=== PATIENT | female | born 1995 | race Caucasian/White ===

== ENCOUNTER 2023-05-12 11:55 | Emergency (ER) | payer MEDICAID, SELFPAY ==
[2023-05-12 11:55] VITALS: BP 115/84; PULSE 72; RESP 18; TEMP 36.9; O2SAT 99
--- NOTE | 2023-05-12 12:17 | ED.DENTAL ---
HPI - Dental/Oral General Chief complaint: Dental/Oral Stated complaint: dental pain Time Seen by Provider: 05/12/23 12:02 Source: patient Mode of arrival: ambulatory Limitations: no limitations History of Present Illness HPI Narrative: this is a 28-year-old female with left lower Dental pain with surrounding gum inflammation and left lower jaw pain and submandibular gland inflammation with no fever chills no shortness of breath. MD Complaint: tooth pain Teeth map: 1. Dental pain with surrounding gum inflammation Onset (ago): month(s) Duration: intermittent Severity: moderate Relieving factors: NSAIDs Exacerbating factors: chewing Context: history of dental caries Related Data Allergies Allergy/AdvReac Type Severity Reaction Status Date / Time pseudoephedrine Allergy Palpitation Verified 05/12/23 12:11 [From Sudafed] s Review of Systems Review of Systems: All systems reviewed & are unremarkable except as noted in HPI and below PMFSH Past Medical History Medical History Patient denies medical problems Exam Const: General: healthy appearing Nutritional Appearance: well nourished Orientation/consciousness: patient oriented x3 Limitations: no limitations HENMT: Other: left lower dental pain surrounding gum inflammation Eyes: Conjunctivae: conjunctivae normal Pupils: Equal, round and reactive pupils present EOM: EOMs intact bilaterally Neck: Neck: normal visual inspection Chest: Chest palpation & inspection: normal inspection of the chest Resp: Effort & Inspection: normal respiratory effort Auscultation: clear to auscultation bilaterally Cardio: Rate: regular rate Rhythm: regular rhythm Skin: General skin exam: normal color Rashes: no rashes Neuro: General: patient oriented x3 Extrem: General: normal to inspection Psych: Mental Status: mental status grossly normal Affect: normal affect Course Course Emergency Course: patient took medication for pain prior to arrival to the emergency department, was told by a dentist to come to the nearest emergency department to get an antibiotic. Vital Signs Vital signs: Vital Signs Temperature 36.9 C 05/12/23 11:55 Pulse Rate 72 05/12/23 11:55 Respiratory Rate 18 05/12/23 11:55 Blood Pressure 115/84 05/12/23 11:55 Pulse Oximetry 99 05/12/23 11:55 Oxygen Delivery Room Air 05/12/23 11:55 Temperature 36.9 C 05/12/23 11:55 Pulse Rate 72 05/12/23 11:55 Respiratory Rate 18 05/12/23 11:55 Blood Pressure 115/84 05/12/23 11:55 Pulse Oximetry 99 05/12/23 11:55 Oxygen Delivery Room Air 05/12/23 11:55 Critical Care Time Critical Care Time Critical Care Time: No Discharge Plan Discharge Clinical Impression: Dental abscess, Toothache Patient Disposition: Home, Self-Care Condition: Stable Instructions: Antibiotic Form, Dental Abscess (ED), Toothache (ED) Additional Instructions: Take medicine as prescribed, can continue taking Tylenol or Motrin and follow with dentist as scheduled. Prescriptions: New amoxicillin 400 mg/5 mL suspension for reconstitution 500 mg PO TID 10 Days Qty: 187.5 0RF Follow-up/Referrals: UNKNOWN,DOCTOR [Primary Care Provider] - Stand Alone Forms: Work/School Release IP Time of Disposition: 12:22
== END 2023-05-12 12:37 | disposition home or self-care (01) ==
LOC: CHSED 12:24
PROVIDERS: Emergency Provider Emergency Medicine
DX: K04.7 Periapical abscess without sinus (principal)
CPT/HCPCS: 99283

== ENCOUNTER 2023-11-20 18:05 | Emergency (ER) | payer BC, SELFPAY ==
[2023-11-20 18:05] VITALS: BP 123/75; PULSE 87; RESP 18; TEMP 36.9; O2SAT 99
--- NOTE | 2023-11-20 18:13 | ED.GENADULT ---
HPI - General Adult General Chief complaint: Urogenital-Female Stated complaint: right lower abdominal pain Time Seen by Provider: 11/20/23 18:13 History of Present Illness HPI narrative: Matthew is a G7 with 3 living children and she lost 3 pregnancies who is currently reportedly 25 weeks . She had triplets but only has one viable fetus left. She is followed by [facility]. She reported to the ED with right flank pain that radiates to the RLQ with some dysuria. She is still feeling her baby move. There is no nausea, vomiting, fevers or dyspnea. Related Data Home Medications Medication Instructions Recorded Confirmed vit no.95-ferrous 1 tablet PO DAILY 11/20/23 11/20/23 fumarate 28 mg-folic acid 800 mcg tablet () Allergies Allergy/AdvReac Type Severity Reaction Status Date / Time pseudoephedrine Allergy Palpitation Verified 05/12/23 12:11 [From [facility]] s Review of Systems Review of Systems: All systems reviewed & are unremarkable except as noted in HPI and below PMFSH Past Medical History Medical History Patient denies medical problems Exam Const: General: cooperative, healthy appearing, comfortable, no acute distress, well developed, alert, awake and Physically active Orientation/consciousness: oriented to person, oriented to place and oriented to time HENMT: Head: normal to inspection, normocephalic and atraumatic Ears: hearing grossly normal bilaterally and external ears normal Face/Nose/Sinus: Normal external nose present Eyes: General: appearance normal, both eyes and all related structures Periorbital: periorbital findings normal Sclera: sclerae normal Pupils: Equal, round and reactive pupils present Neck: Neck: normal visual inspection Chest: Chest palpation & inspection: normal inspection of the chest Resp: Effort & Inspection: normal respiratory effort, able to speak in complete sentences and no respiratory distress Auscultation: clear to auscultation bilaterally Cardio: Jugular venous distension: no JVD Rate: regular rate Rhythm: regular rhythm GI: Inspection: normal to inspection GI Palp: Yes Soft to palpation Auscultation: normal bowel sounds Other: TTP in the right lower quadrant. Negative obturator and psoas sign : Other: Right sided CVA tenderness Pelvic exam showed a closed uterus and findings were wnl Back/Spine/Pelvis: Back: CVA tenderness Skin: General skin exam: normal color and no rashes or lesions noted Neuro: General: oriented to person, oriented to place and oriented to time Cranial nerves: Yes Equal, round and reactive pupils present Extrem: General: normal to inspection Psych: Mental Status: mental status grossly normal Course Course Emergency Course: Ordered labs and UA. heart tones were 146-156 Labs and UA were largely unremarkable. We reached out to [facility] where her MFM, Dr. Harley works. While awaiting to hear back August no longer wanted to wait and she left [facility]. She was aware that that failure to comply could result in loss/harm, discomfort, and pain or . She was made aware that she can return at any time. Vital Signs Vital signs: Vital Signs Temperature 98.4 F 11/20/23 18:05 Pulse Rate 87 11/20/23 18:05 Respiratory Rate 18 11/20/23 18:05 Blood Pressure 123/75 11/20/23 18:05 Pulse Oximetry 99 11/20/23 18:05 Oxygen Delivery Room Air 11/20/23 18:05 Temperature 98.4 F 11/20/23 18:05 Pulse Rate 89 11/20/23 19:00 Respiratory Rate 18 11/20/23 19:00 Blood Pressure 122/65 11/20/23 19:00 Pulse Oximetry 100 11/20/23 19:00 Oxygen Delivery Room Air 11/20/23 19:00 Medical Decision Making Vital Signs Vital Signs: Vital Signs Temperature 98.4 F 11/20/23 18:05 Pulse Rate 87 11/20/23 18:05 Respiratory Rate 18 11/20/23 18:05 Blood Pressure 123/75 11/20/23 18:05 P
[2023-11-20 18:49] LABS: Basophils Absolute Auto 0.01 K/mm3 (0.00-0.10); Basophils Percent Auto 0.1 % (0.0-1.0); Bilirubin Urine Negative (Negative); Blood Urine Negative (Negative); Color Urine Light Yellow (Yellow); Eosinophils Absolute Auto 0.09 K/mm3 (0.02-0.50); Eosinophils Percent Auto 1.3 % (1.0-6.0); Glucose Urine UA Negative (Negative); Hematocrit 29.7 % (35.0-49.0); Hemoglobin 9.4 g/dL (12.0-15.0); Immature Granulocyte Absolute 0.05 K/mm3 (0.00-0.00); Immature Granulocyte Percent A 0.7 % (0.0-0.0); Ketones Urine Negative (Negative); Leukocyte Esterase Ur 1+ LEU/UL (Negative); Lymphocytes Absolute Auto 1.27 K/mm3 (1.10-4.50); Lymphocytes Percent Auto 18.8 % (18.0-42.0); Mean Corpuscular HGB Conc 31.6 g/dL (32.0-36.0); Mean Corpuscular Hemoglobin 27.7 pg (27.0-31.0); Mean Corpuscular Volume 87.6 fL (78.0-102.0); Mean Platelet Volume 10.3 fl (9.2-11.8); Monocytes Absolute Auto 0.41 K/mm3 (0.10-0.90); Monocytes Percent Auto 6.1 % (2.0-11.0); Neutrophils Absolute Auto 4.9 K/mm3 (1.7-7.2); Nitrate Urine Negative (Negative); Platelet Count Result 145 K/mm3 (150-420); Protein Urine Negative (Negative); Red Blood Count 3.39 M/mm3 (4.20-5.40); Specific Grav Ur 1.015 (1.010-1.020); Urobilinogen Urine 0.2 mg/dL (0.2-1.0); White Blood Count 6.8 K/mm3 (4.8-10.8); pH Urine 8.5 (5.0-8.0)
[2023-11-20 19:00] VITALS: BP 122/65; PULSE 89; RESP 18; O2SAT 100
[2023-11-20 19:11] LABS: Add Urine Microscopic? YES; Appearance Urine Cloudy (Clear); Squamous Epithelial Cell Urine Many /hpf (Few); WBC Urine 0-3 /hpf (0-3)
[2023-11-20 19:12] LABS: Amorphous Sediment Urine Heavy; Bacteria Urine 4+ /hpf
[2023-11-20 19:22] LABS: Alanine Aminotransferase 15 U/L (14-59); Chloride 104 mmol/L (98-108); Lipase 38 U/L (16-77); Potassium 3.5 mmol/L (3.5-5.1); Sodium 138 mmol/L (136-145)
[2023-11-20 19:28] LABS: Lactic Acid Reflex 0.8 mmol/L (0.4-2.0)
[2023-11-20 20:03] LABS: Albumin Level 2.8 g/dL (3.4-5.0); Alkaline Phosphatase 91 U/L (46-116); Anion Gap 8 mmol/L (8-16); Aspartate Amino Transferase 10 U/L (15-37); Bilirubin,Total 0.3 mg/dL (0.00-1.00); Carbon Dioxide 26 mmol/L (21-32); Glucose 98 mg/dL (70-99); Total Protein 6.2 g/dL (6.4-8.2)
[2023-11-20 20:12] LABS: Blood Urea Nitrogen 7 mg/dL (7-18); Calcium 8.3 mg/dL (8.5-10.1); Estimated CRCL calculation 88 ml/min; Estimated Glomerular Filt Rate > 60; Osmolality Calculated 284 mOsm/kg (285-295)
[2023-11-20 20:21] LABS: CRP < 0.5 mg/dL (0.0-0.9)
[2023-11-20 20:40] VITALS: BP 128/74; PULSE 91; RESP 18; TEMP 36.8; O2SAT 97
--- NOTE | 2023-11-23 12:18 | PC.NURSE ---
final urine report reviewed. no growth found. no cahnge in plan of care.
== END 2023-11-20 20:50 | disposition left against medical advice (07) ==
LOC: CHSED 18:39
PROVIDERS: Emergency Provider Family Medicine
DX: O26.892 Other specified pregnancy related conditions, second trimester (principal); R10.31 Right lower quadrant pain; Z3A.25 25 weeks gestation of pregnancy; O09.292 Supervision of pregnancy with other poor reproductive or obstetric history, second trimester
CPT/HCPCS: 36415; 80053; 81001; 83605; 83690; 85025; 86140; 87086; 99283

== ENCOUNTER 2024-07-15 20:27 | Emergency (ER) | payer OTHER, SELFPAY ==
--- NOTE | ~2024-07-15 | XR_ITS ---
XR foot LT min 3V DATE: 07/15/2024 20:47 INDICATION: Lateral and dorsal left foot pain for one day. No known injury. TECHNIQUE: 4 views COMPARISON: None FINDINGS: No fracture or dislocation, periosteal reaction or bone destruction. Joint spaces are prese rved. No erosive change. No calcaneal enthesopathy. IMPRESSION: Negative Reviewed, dictated and finalized at location [facility]. [facility] IMPRESSION: Negative
[2024-07-15 20:27] VITALS: BP 145/95; PULSE 116; RESP 18; TEMP 36.2; O2SAT 97
--- NOTE | 2024-07-15 20:29 | ED_ITS ---
HPI - Extremity Injury (Lower) General Chief Complaint: Extremity Injury, Lower Stated Complaint: L foot Injury Time Seen by Provider: 07/15/24 20:28 Source: patient Mode of arrival: ambulatory Limitations: no limitations History of Present Illness HPI Narrative: Patient is a 29-year-old female with a left lateral foot pain today. The pain is progressively get worse. She did not injure this area. complaint: foot injury ( Left) Onset (ago): day(s) (1) Type of Injury: other ( no injury that she recalls) Place: home Severity: moderate Severity scale (1-10): 4 Relieving factors: immobilization Exacerbating factors: weight bearing, movement and palpation Context: other ( no injury) Associated symptoms: able to partially bear weight Other symptoms: none Treatments prior to arrival: other ( none) Related Data Home Medications Medication Instructions Recorded Confirmed vit no.95-ferrous 1 tablet PO DAILY 11/20/23 11/20/23 fumarate 28 mg-folic acid 800 mcg tablet () Allergies Allergy/AdvReac Type Severity Reaction Status Date / Time pseudoephedrine Allergy Palpitation Verified 05/12/23 12:11 [From Sudafed] s Review of Systems Review of Systems: All systems reviewed & are unremarkable except as noted in HPI and below Constitutional: Constitutional: Reports no additional constitutional complaints Eyes: Eyes: Reports no additional eye complaints ENT: Reports system reviewed and no additional complaints, except as documented Cardiovascular: Cardiovascular: Reports no additional cardiovascular complaints Respiratory: Respiratory: Reports no additional respiratory complaints Gastrointestinal: Gastrointestinal: Reports no additional gastrointestinal complaints Genitourinary: Genitourinary: Reports no additional female genitourinary complaints Musculoskeletal: Musculoskeletal: Reports no additional musculoskeletal complaints Integumentary/Breasts: Skin/Breast: Reports system reviewed and no additional complaints, except as docu Neurologic: Reports system reviewed and no additional complaints, except as documented Psychiatric: Psychiatric: Reports no additional psychiatric complaints Endocrine: Endocrine: Reports no additional endocrine complaints Hematologic/Lymphatic: Hematologic/Lymphatic: Reports no additional hematologic/lymphatic complaints Allergic/Immunologic: Allergic/Immunologic: Reports no additional allergic/immunologic complaints PMFSH Past Medical History Medical History Patient denies medical problems Exam Const: General: healthy appearing Nutritional Appearance: well nourished Orientation/consciousness: patient oriented x3 HENMT: Head: normal to inspection Ears: external ears normal Face/Nose/Sinus: Normal external nose present Eyes: Conjunctivae: conjunctivae normal Pupils: Equal, round and reactive pupils present EOM: EOMs intact bilaterally Neck: Neck: normal visual inspection Chest: Chest palpation & inspection: normal inspection of the chest Resp: Effort & Inspection: normal respiratory effort and not labored Auscultation: clear to auscultation bilaterally and no crackles Cardio: Rate: regular rate Rhythm: regular rhythm Heart sounds: no murmurs GI: Inspection: non-distended GI Palp: Yes Soft to palpation and No Tenderness to palpation present (GI) Auscultation: normal bowel sounds : General: Yes bladder normal to palpation Back/Spine/Pelvis: Back: no CVA tenderness Skin: General skin exam: normal color Rashes: no rashes Wounds: no wounds Neuro: General: patient oriented x3 Cranial nerves: Yes Nystagmus not present Speech: normal speech Gait exam (Neuro): gait abnormal Other: difficulty walking secondary to left foot pain Extrem: General: normal to inspection, no clubbing, cyanosis or edema and no pedal edema Other: tender left lateral foot at the metatarsal base 5th digit and some of the tarsal bones included in this painful area laterally Psych: Mental Status: mental status grossly normal Affect: normal affect Attitude: cooperative Course Vital Signs Vital signs: Vital Signs Temperature 36.2 C L 07/15/24 20:27 Pulse Rate 116 H 07/15/24 20:27 Respiratory Rate 18 07/15/24 20:27 Blood Pressure 145/95 H 07/15/24 20:27 Pulse Oximetry 97 07/15/24 20:27 Oxygen Delivery Room Air 07/15/24 20:27 Temperature 36.2 C L 07/15/24 20:27 Pulse Rate 116 H 07/15/24 20:27 Respiratory Rate 18 07/15/24 20:27 Blood Pressure 145/95 H 07/15/24 20:27 Pulse Oximetry 97 07/15/24 20:27 Oxygen Delivery Room Air 07/15/24 20:27 MDM - Extremity Injury (Lower) MDM Narrative Medical decision making narrative: patient is a 29-year-old female with left foot pain. There is no injury. We will start with an x-ray at this time. in retrospect, the patient says that she has been carrying the baby and had a popping sensation on the opposite side of the same foot in the last few weeks which she probably has been walking Nadia on that left foot. All in all, she probably has a sprain or strain of this area that is causing her pain tonight. She does not use any ibuprofen or Tylenol. I suggested ibuprofen at this time 200 mg to 800 mg per dose to stop the pain. she asked me about blood clots and I explained that the foot does not have deep veins and her pain is only in the foot and her Homans sign was negative. I did offer ultrasound for the morning but she did not want to do at this time. No calf pain. Imaging Data Attestation: I personally reviewed and interpreted this imaging study as follows: Radiologist's impression: X-ray left foot is negative for acute process Discharge Plan Discharge Clinical Impression: Sprain of foot Patient Disposition: Home, Self-Care Condition: Stable Instructions: Foot Sprain (ED) Additional Instructions: Please use ice and/or ibuprofen 200 mg to 800 mg per dose for pain relief. Further workup to include an MRI can be done of this area if it does not reso lve. Please see the primary doctor in the next week. Prescriptions: No Action PNV cmb#95-ferrous fumarate-FA [] 28 mg iron- 800 mcg tablet 1 tablet PO DAILY Follow-up/Referrals: Trevor,CHYNA Zuniga [Primary Care Provider] - Time of Disposition: 21:29
--- NOTE | 2024-07-15 20:42 | PC.NURSE ---
xray at the bedside
--- NOTE | 2024-07-15 21:21 | PC.NURSE ---
Dr Ludwig at the bedside
[2024-07-15 21:35] VITALS: BP 132/89; PULSE 82; RESP 18; O2SAT 100
== END 2024-07-15 21:35 | disposition home or self-care (01) ==
PROVIDERS: Emergency Provider Emergency Medicine; PCP Physician Assistant
DX: S93.602A Unspecified sprain of left foot, initial encounter (principal); X58.XXXA Exposure to other specified factors, initial encounter
CPT/HCPCS: 73630; 99283

== ENCOUNTER 2024-12-17 20:22 | Emergency (ER) | payer OTHER, SELFPAY ==
--- NOTE | ~2024-12-17 | XR_ITS ---
CHEST RADIOGRAPH CLINICAL HISTORY: WEAKNESS . COMPARISON: None available TECHNIQUE: Single portable view of the chest. FINDINGS The cardiomediastinal silhouette is unremarkable. The lungs are clear. IMPRESSION: No focal infiltrate or effusion. Reviewed, dictated and finalized at location A.
--- NOTE | ~2024-12-17 | CT_ITS ---
History: Weakness PROCEDURE: CT head without contrast. COMPARISON: None TECHNIQUE: Axial imaging of the head performed from the skull base to the vertex without IV contrast. Sagittal a nd coronal reformations obtained. DLP: 605 mGy-cm FINDINGS: The ventricles are normal in size, shape and position. There is no mass, mass effect or midline shift. There is no abnormal extra-axial fluid collection or intracranial hemorrhage. Visualized paranasal sinuses are clear. The mastoid air cells are well aerated. No acute displaced fractures within the overlying cranium. Impression: No acute intracranial hemorrhage or suspicious mass effect. Reviewed, dictated and finalized at location A. Impression: No acute intracranial hemorrhage or suspicious mass effect.
[2024-12-17 20:27] VITALS: BP 143/100; PULSE 99; RESP 18; TEMP 36.6; O2SAT 100
--- OUTSIDE RECORDS SUMMARY | 2024-12-17 20:27 | XMS_ITS | Clinical Summary ---
Author Organization [facility] Address [address] [place] [address] Phone Care Team Providers Care Coat Padder Name Role Phone Safia Perez MD Primary Care Provider + [phone] Allergies Active Allergy Reactions Criticality Noted Date Comments Pseudoephedrine Other (see Comments) 11/29/2022 Pt states that her heart was raising and her face feel flushed. Medications No known medications Social History Tobacco Use Types Packs/Day Years Used Date Smoking Tobacco: Every Day Cigarettes Smokeless Tobacco: Never Tobacco Cessation:Ready to Q uit: Not Asked; Counseling Given: Not Answered Alcohol Use Standard Drinks/Week Comments Yes 0 (1 standard drink = 0.6 oz pur e alcohol) [facility] Utilities Answer Date Recorded In the past 12 months has [employer] electric, gas, oil, or water [employer] threatened to shut off services in your home? No 08/29/2023 Social Connection and Isolat ion Panel [NHANES] Answer Date Recorded In a typical week, how many times do you talk on the phone with family, friends, or neighbors? More than three times a week 08/29/2023 How often do you get togethe r with friends or relatives? Once a week 08/29/2023 How often do you attend chur ch or rastafarian services? Never 08/29/2023 Do you belong to any clubs o r organizations such as religion groups, unions, fraternal or athletic groups, or school groups? No 08/29/2023 How often do you attend meet ings of the clubs or organizations you belong to? Never 08/29/2023 Are you , , di vorced, , never , or living with a partner? 08/29/2023 AUDIT-C Answer Date Recorded Q1: How often do you have a drink containing alcohol? Never 08/29/2023 Q2: How many drinks containi ng alcohol do you have on a typical day when you are drinking? Patient does not drink 3 Q3: How often do you have si x or more drinks on one occasion? Never 08/29/2023 Overall Financial Resource Strain (CARDIA) Answe r Date Recorded How hard is it for you to pa y for the very basics like food, housing, medical care, and heating? Not hard at all 08/29/2023 [facility] - Occupational Stress Questionnaire Answer Date Recorded Do you feel stress - tense, restless, nervous, or anxious, or unable to sleep at night because your mind is troubled all the time - these days? Only a little 08/29/2023 Exercise Vital Sign Answer Date Recorde d On average, how many days pe r week do you engage in moderate to strenuous exercise (like a brisk walk)? 2 days 08/29/2023 On average, how many minutes do you engage in exercise at this level? 30 min 08/29/2023 Hunger Vital Sign Answer Date Recorded Within the past 12 months, y ou worried that your food would run out before you got the money to buy more. Sometimes true Within the past 12 months, t he food you bought just didn't last and you didn't have money to get more. Sometimes true PRAPARE - Transportation Answer Date Re corded In the past 12 months, has l ack of transportation kept you from medical appointments or from getting medications? Yes 08/12 In the past 12 months, has l ack of transportation kept you from meetings, work, or from getting things needed for daily living? Yes 08/29/2023 Housing Stability Vital Sign Answer Michael e Recorded In the last 12 months, was t here a time when you were not able to pay the mortgage or rent on time? Yes 08/29/2023 In the last 12 months, how many places have you lived? 3 08/29/2023 In the last 12 months, was t here a time when you did not have a steady place to sleep or slept in a custodial (including now)? Yes 08/29/2023 Housing Stability Vital Sign Answer Michael e Recorded In the last 12 months, was t here a time when you were not able to pay the mortgage or rent on time? Yes 08/29/2023 Number of Times Moved in the Last Year Not on fi le 08/29/2023 Homeless in the Last Year Not on file 2022 Comments Unknown Sex and Gender Information Value Date Recorded Sex Assigned at Not on file Legal Sex Female 7:31 PM CDT Gender Identity Not on file Sexual Orientation Not on file Last Filed Vital Signs Vital Sign Reading Time Taken Comments Blood Pressure 112/66 10/24/2023 1:11 PM CLASSICS TEACHER Pulse 80 10/24/2023 1:11 PM CLASSICS TEACHER Temperature 36.1 C (97 F) 10/24/2023 1:11 PM CLASSICS TEACHER Respiratory Rate 16 10/24/2023 1:11 PM CLASSICS TEACHER Oxygen Saturation 100% 10/24/2023 1:11 PM CLASSICS TEACHER Inhaled Oxygen Concentration - - Weight 59 kg (130 lb) 10/24/2023 10:06 AM CLASSICS TEACHER Height 154.9 cm (5' 1 ) 10/24/2023 10:06 AM CLASSICS TEACHER Body Mass Index 24.56 10/24/2023 10:06 AM CLASSICS TEACHER Plan of Treatment Health Maintenance Due Date Last Done Comments Hepatitis C Virus (HCV) Screening 1993 Pneumococcal Immunization Combined (1 of 2 - PCV) 2012 Pap Smear 2014 Cervical Cancer Screening (CCS) 2023 HPV/Cotest 2023 Influenza Immunization (#1) 2024 06/28/2008 SARS-COV-2 Immunization ( season) 2024 Respiratory Syncytial Virus (RSV) Immunization (Adult) (1 - 1-dose 75+ series) 2068 Hepatitis B Immunization Completed 994, 1993, 1993 DTaP/Tdap/Td Immunization Discontinued 2007, 06/03/1998, 11/26/1994, Additional history exists Meningococcal Immunization (ACWY) Aged Out 06/28/2008 No longer eligible based on patient's age to complete this topic TdaP Immunization Completed 06/28/2008 Rotavirus Immunization Aged Out No lo nger eligible based on patient's age to complete this topic Insurance [place] [id number] Care Teams Coat Padder Relationship Specialty Start Date End Date Safia Perez MD [address] [place] [id number] PCP - General Obstetrics & Gynecology 08/09/23
--- OUTSIDE RECORDS SUMMARY | 2024-12-17 20:27 | XMS_ITS | Referral Summary ---
Author Organization [facility] Address [address] [place] [address] Care Team Providers Care Senior Safety Management Consultant Name Role Phone No, Provider Primary Care Provider Unavailabl e Allergies Active Allergy Reactions Criticality Noted Date Comments Pseudoephedrine Other (See comments),Palpitations,U rticaria Medium 07/25/2009 Pt states that her heart was raising and her face feel flushed. States she felt like she was having a panic attack, Medications PNV 119-iron fum-folic acid ( 19) 29 mg iron- 1 mg tablet Take 1 tablet by mouth daily 08/09/2023 Active Social History Tobacco Use Types Packs/Day Years Used Date Smoking Tobacco: Never Assessed Personal Safety Answer Date Recorded Have you ever been in or are you currently in a harmful physical or emotional relationship or is someone making you feel afraid or unsafe? Denies 09/16/2023 Comments No Sex and Gender Information Value Date Recorded Sex Assigned at Not on file Legal Sex Female 7:50 PM CDT Gender Identity Not on file Sexual Orientation Not on file Last Filed Vital Signs Vital Sign Reading Time Taken Comments Blood Pressure 121/73 11/21/2023 6:22 PM CDT Pulse 88 11/21/2023 6:22 PM CDT Temperature 36.7 C (98.1 F) 11/21/2023 4:54 PM CDT Respiratory Rate 18 11/21/2023 4:54 PM CDT Oxygen Saturation 100% 09/16/2023 4:47 PM SCREEN PRINTING PASTER Inhaled Oxygen Concentration - - Weight 61.5 kg (135 lb 9.3 oz) 11/21/2023 4:54 P M CDT Height 154.9 cm (5' 1 ) 11/21/2023 4:54 PM CDT Body Mass Index 25.62 11/21/2023 4:54 PM CDT Plan of Treatment Not on file Insurance [facility] Care Teams Senior Safety Management Consultant Relationship Specialty Start Date End Date No, Provider PCP - General 07/16/22
--- OUTSIDE RECORDS SUMMARY | 2024-12-17 20:27 | XMS_ITS | Clinical Summary ---
Author Organization [facility] Address [address] [place] [address] Care Team Providers Care Drafter Engineering Name Role Phone Non-Staff, Provider Primary Care Provider Mookie lable Allergies Active Allergy Reactions Criticality Noted Date Comments Pseudoephedrine Tachycardia 07/30/2023 Medications No known medications Social History Tobacco Use Types Packs/Day Years Used Date Smoking Tobacco: Never Assessed Comments Yes Sex and Gender Information Value Date Recorded Sex Assigned at Not on file Legal Sex Female 8:30 AM OFF TRACK BETTING MANAGER Gender Identity Not on file Sexual Orientation Not on file Last Filed Vital Signs Vital Sign Reading Time Taken Comments Blood Pressure 129/85 07/30/2023 8:38 AM OFF TRACK BETTING MANAGER Pulse 89 07/30/2023 8:38 AM OFF TRACK BETTING MANAGER Temperature 36.6 C (97.8 F) 07/30/2023 8:38 AM OFF TRACK BETTING MANAGER Respiratory Rate 16 07/30/2023 8:38 AM OFF TRACK BETTING MANAGER Oxygen Saturation 100% 07/30/2023 8:38 AM OFF TRACK BETTING MANAGER Inhaled Oxygen Concentration - - Weight 52.2 kg (115 lb) 07/30/2023 8:38 AM OFF TRACK BETTING MANAGER Height 154.9 cm (5' 1 ) 07/30/2023 8:38 AM OFF TRACK BETTING MANAGER Body Mass Index 21.73 07/30/2023 8:38 AM OFF TRACK BETTING MANAGER Plan of Treatment Health Maintenance Due Date Last Done Comments Cervical Cancer Screening Pap Smear (Age 30 to 64) Every 3 Years 1993 Annual Physical 1996 HPV Vaccines (2 - 3-dose series) 07/26/2008 06/28/2008 Hepatitis C 2011 DTaP, Tdap and Td Vaccines (7 - Td or Tdap) 06/28/2018 06/28/2008, 06/03/1998, 11/26/1994, Additional history exists Cervical Cancer Screening Pap with HPV Testing (Age 30 to 64) Every 5 Years 2023 Cervical Cancer Screening with HPV 2023 COVID-19 Vaccine (2023- season) 2024 RSV Immunization or 60+ Years (1 - 1-dose 75+ series) 2068 Hepatitis B Vaccines Completed 03/16/1994, 1993, 1993 Meningococcal Vaccine Aged Out 06/28/2008 No shabnam iliana eligible based on patient's age to complete this topic Meningococcal B Vaccine Aged Out No l onger eligible based on patient's age to complete this topic Pneumococcal Vaccine: Pediatrics (0 to 5 Years) and At-Risk Patients (6 to 64 Years) Aged Out No longer eligible based on patient's age to complete this topic RSV Immunizations Under 20 Months Aged Out No longer eligible based on patient's age to complete this topic [place] [address] Care Teams Drafter Engineering Relationship Specialty Start Date End Date Non-Staff, Provider PCP - General UNKNOWN PHYSICIAN SPECIALTY 07/30/23
--- OUTSIDE RECORDS SUMMARY | 2024-12-17 20:27 | XMS_ITS | Clinical Summary ---
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 Machine Operator Name Role Phone No, Provider Primary Care [...] on file Sexual Orientation Not on file Obstetrics History Para Term AB IAB SAB Ectopic Multiple Livin g Live Births 7 3 2 1 3 2 1 0 3 3 Date Outcome GA Total Labor Labor/2nd/3rd Weight Sex Type Anes PTL Verónica A1 A5 Name Clin 2010 Term 39w 0d 2.778 kg (6 lb 2 oz) F Vagina l Epidur al N Livin g Complications:None Delivery Location:Other 2012 SAB M SAB Complications:Other (Comment ),Twin delivered 2013 Term 39w 0d 3.317 kg (7 lb 5 oz) M Vagina l Y Livin g Complications:None Delivery Location:Other 2017 35w 0d 2.608 kg (5 lb 12 oz) F Vagina l Epidur al Y Livin g Delivery Location:Other 2022 IAB 2022 IAB Last Filed Vital Signs Vital Sign Reading Time Taken Comments Blood Pressure 121/73 11/21/2023 6:22 PM CDT Pulse 88 11/21/2023 6:22 PM CDT Temperature 36.7 C (98.1 F) 11/21/2023 4:54 PM CDT Respiratory Rate 18 11/21/2023 4:54 PM CDT Oxygen Saturation 100% 09/16/2023 4:47 PM 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 Inhaled Oxygen Concentration - - Weight 61.5 kg (135 lb 9.3 oz) 11/21/2023 4:54 P M CDT Height 154.9 cm (5' 1 ) 11/21/2023 4:54 PM CDT Body Mass Index 25.62 11/21/2023 4:54 PM CDT Plan of Treatment Health Maintenance Due Date Last Done Comments Cervical Cancer Screening 1993 Depression Screening 1993 Hepatitis C Screening 1993 HPV Vaccines (2 - 3-dose series) 07/26/2008 06/28/2008 Varicella Vaccines (1 of 2 - 13+ 2-dose series) 07/26/2008 Regular Well Visit/Exam 18-64 2011 DTaP/Tdap/Td Vaccine (8 - Td or Tdap) 06/28/2018 06/28/2008, 06/28/2008, 06/03/1998, Additional history exists Influenza Vaccine (#1) 2024 06/28/2008 Hepatitis B Screening Completed 03/16/1994 , 1993, 1993 Pneumococcal vaccine <65 Aged Out No longer eligible based on patient's age to complete this topic Insurance [facility] Care Teams Spike Machine Operator Relationship Specialty Start Date End Date No, Provider PCP - General 07/16/22
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
--- OUTSIDE RECORDS SUMMARY | 2024-12-17 20:27 | XMS_ITS | Data Portability ---
Author Organization MARY GLENYSAmilcar Franklin Address [address] [facility] M[place] [id number] Care Team Providers Care Cable Installer Name Role Phone JOHANN WHITFIELD Brim Buster Assessment Encounter Date Assessment Date Assessment LastModified by Organization Details LastModified Time 08/17/2023 08/17/2023 Plan for full transfer to [facility] [email or web address] Not available 08/17/2023 13:09:48 Plan of Treatment Reminders Order Date Submit Date Provider Last Modified By Organization Details Last Modified Time Details Appointments None recorded. Lab urinalysis, dipstick 2022 023 [email or web address] In-Office Order, Internal Use Only DO Not Attach Compendium DO Not Attach Compendium, Do Not Delete/merge, [id number] 3 13:19:42 aneuploidy risk and X & Y analysis, chromosome specific circulating cell free (CCF) DNA, maternal serum 2022 023 [facility], [address], [address], [place], [address], 3 17:08:52 panel 2022 023 [facility], [address], [address], [place], [address], 3 11:13:48 cf (cystic fibrosis) profile 2022 023 [facility], [address], [address], [place], [address], 3 11:13:50 hemoglobin S (hbs), presence, blood 2022 023 [facility], [address], [address], [place], [address], 3 11:13:52 varicella zoster virus IgG Ab, QN, IA, serum 2022 023 [facility], [address], [address], [place], [address], 3 11:13:53 drug screen, 14 drugs (detectimed ), urine 2022 023 [facility], [address], [address], [place], [address], 3 11:13:51 cytology report, thin prep, smear or scraping, cervical or vaginal 2022 023 [facility], [address], [address], [place], [address], 3 09:18:39 bacterial vaginosis + vaginitis panel, vaginal 2022 023 [facility], [address], [address], [place], [address], 3 11:13:49 urinalysis, dipstick 2022 023 [facility] In-Office Order, Internal Use Only DO Not Attach Compendium DO Not Attach Compendium, Do Not Delete/merge, [id number] 3 12:20:33 test, urine 2022 023 [facility] In-Office Order, Internal Use Only DO Not Attach Compendium DO Not Attach Compendium, Do Not Delete/merge, [id number] 3 12:19:11 Referral None recorded. Procedures None recorded. Surgeries None recorded. Imaging US, obstetric, 1st trimester 2022 023 [facility] Scheduling, [address] [place], [address], 3 15:24:27 Medication Orders 28 mg iron-800 mcg tablet 2022 023 [facility], [facility] [address] [facility] [address], [place], [address], 3 11:25:48 Patient TargetsNo targets recorded. Patient InstructionsNo instructions recorded. Reason for Referral None Reported. Results Created Date Observation Date Name Description Value Unit Range Abnormal Flag Note LastModifiedBy Organization Detail LastModifiedTime 08/09/2008/11/2023 IGP,C TNGTV ,APT HPV,R FX16/ 18,45 diagnosis: Commen t NEGAT JN FOR INTRA EPITH ELIAL LESDOMO N OR LIAM FAULKNER . Not Available [facility] ([facility]) [address] [facility], [place], [address], 08/11/2023 09:18:39 08/09/2008/11/2023 IGP,C TNGTV ,APT HPV,R FX16/ 18,45 specimen adequacy: Commen t Satis facto ry for evalu ation . Endoc ervic al and/o r squam ous metap lasti c cells (endo cervi kelly compo nent) are prese nt. Not Available [facility] ([facility]) [address] [facility], [place], [address], 08/11/2023 09:18:39 08/09/20 23 08/11/2023 IGP,C TNGTV ,APT HPV,R FX16/ 18,45 clinician provided ICD10: Commen t Z34.0 1 Not Available [facility] ([facility]) [address] [facility], [place], [address], 08/11/2023 09:18:39 08/09/20 23 08/11/2023 IGP,C TNGTV ,APT HPV,R FX16/ 18,45 performed by: Jojo bauman, Cytot nate christiansen (ASCP ) Not Available [facility] ([facility]) [address] [place], [address], 08/11/2023 09:18:39 08/09/20 23 08/11/2023 IGP,C TNGTV ,APT HPV,R FX16/ 18,45 . . Not Available [facility] ([facility]) [address] [place], [address], 08/11/2023 09:18:39 08/09/20 23 08/11/2023 IGP,C TNGTV ,APT HPV,R FX16/ 18,45 note: Jojo christiansen The Pap smear is a scree yobani test desig petra to aid in the detec tion of sveta ligna nt and malig nant condi tions of the uteri ne cervi x. It is not a diagn ostic proce dure and shoul d not be used as the sole means of detec ting cervi kelly cance r. Both false -posi tive and false -nega tive repor ts do occur . Not Available [facility] ([facility]) [address] [place], [address], 08/11/2023 09:18:39 08/09/20 23 08/11/2023 IGP,C TNGTV ,APT HPV,R FX16/ 18,45 test methodology: Jojo christiansen This liqui d based ThinP rep(R ) pap test was scree petra with the use of an image guide katalina fontaine. Not Available [facility] ([facility]) [address] [place], [address], 08/11/2023 09:18:39 08/09/20 23 08/11/2023 IGP,C TNGTV ,APT HPV,R FX16/ 18,45 HPV aptima Negati ve negati ve This nucle ic acid ampli ficat ion test detec ts fourt een high- risk HPV types (16,1 8,31, 33,35 ,39,4 5,51, 52,56 ,58,5 9,66, 68) witho ut diffe renti ation . Not Available [facility] ([facility]) [address] [facility], [place], [address], 08/11/2023 09:18:39 08/09/20 23 08/11/2023 IGP,C TNGTV ,APT HPV,R FX16/ 18,45 HPV genotype reflex Commen t Crite johnathan not met, HPV Genot ype not perfo rmed. Not Available [facility] ([facility]) [address] [place], [address], 08/11/2023 09:18:39 08/09/20 23 08/11/2023 IGP,C TNGTV ,APT HPV,R FX16/ 18,45 chlamydia, nuc. acid amp Negati ve negati ve Not Available [facility] ([facility]) [address] [place], [address], 08/11/2023 09:18:39 08/09/20 23 08/11/2023 IGP,C TNGTV ,APT HPV,R FX16/ 18,45 gonococcus, nuc. acid amp Negati ve negati ve Not Available [facility] ([facility]) [address] [place], [address], 08/11/2023 09:18:39 08/09/20 23 08/11/2023 IGP,C TNGTV ,APT HPV,R FX16/ 18,45 trich vag by BLAS Negati ve negati ve Not Available [facility] ([facility]) [address] [place], [address], 08/11/2023 09:18:39 08/09/20 23 08/13/2023 MATER NIT21 PLUS CORE gestation Twins Not Available [facility] ([facility]) [address] [facility], [place], [address], 08/13/2023 17:08:52 08/09/2008/13/2023 MATER NIT21 PLUS CORE fraction 5% Not Available [facility] ([facility]) [address] [facility], [place], [address], 08/13/2023 17:08:52 08/09/20 23 08/13/2023 MATER NIT21 PLUS CORE gestational age > or = 9W: Yes Not Available [facility] ([facility]) [address] [facility], [place], [address], 08/13/2023 17:08:52 08/09/20 23 08/13/2023 MATER NIT21 PLUS CORE test result Negati ve Not Available [facility] ([facility]) [address] [facility], [place], [address], 08/13/2023 17:08:52 08/09/20 23 08/13/2023 MATER NIT21 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 Clini kelly corre latio n is sugge sted. This is a repor varun twin gesta tion with Y chrom osome mater ial detec varun. Howev er, data did not meet crite johnathan for predi cting sex of both fetus es. This assay is unabl e to deter mine if one or more of the fetus es are male. Not Available [facility] ([facility]) [address] [facility], [place], [address], 08/13/2023 17:08:52 08/09/20 23 08/13/2023 MATER NIT21 PLUS CORE approved by Jojo wesley MD, PhD, Dire tor, Seque nom Labor atori es Not Available [facility] ([facility]) [address] [place], [address], 08/13/2023 17:08:52 08/09/20 23 08/13/2023 MATER NIT21 PLUS CORE trisomy 21 (down syndrome) Negati ve Not Available [facility] ([facility]) [address] [facility], [place], [address], 08/13/2023 17:08:52 08/09/20 23 08/13/2023 MATER NIT21 PLUS CORE trisomy 18 (light syndrome) Negati ve Not Available [facility] ([facility]) [address] [facility], [place], [address], 08/13/2023 17:08:52 08/09/2008/13/2023 MATER NIT21 PLUS CORE trisomy 13 (patau syndrome) Negati ve Not Available [facility] ([facility]) [address] [facility], [place], [address], 08/13/2023 17:08:52 08/09/20 23 08/13/2023 MATER NIT21 PLUS CORE sex Commen t Consi stent with Male Not Available [facility] ([facility]) [address] [facility], [place], [address], 08/13/2023 17:08:52 08/09/2008/13/2023 MATER NIT21 PLUS CORE negative predictive value Note The Negat jn Predi ctive Value (NPV) for triso my 21, 18, and 13 is great er than 99%. The NPV for SCA and ESS canno t be calcu lated as SCA and ESS are only repor varun when an abnor malit y is detec varun. Not Available [facility] ([facility]) [address] [facility], [place], [address], 08/13/2023 17:08:52 08/09/20 23 08/13/2023 MATER NIT21 PLUS CORE positive predictive value N/A Not Available [facility] ([facility]) [address] [facility], [place], [address], 08/13/2023 17:08:52 08/09/20 23 08/13/2023 MATER NIT21 PLUS CORE about the test Commen t The Mater niT(R ) 21 PLUS labor atory -deve loped test (LDT) melvin zes circu latin g cell- free DNA from a mater nal blood sampl e. This test is used for scree yobani purpo ses and not diagn ostic . Clini kelly corre latio n is recom gary d. Valid ation data on twin pregn ancie s is limit ed and the abili ty of this test to detec t aneup loidy in highe r multi ple gesta tions has not yet been valid ated. Not Available [facility] ([facility]) [address] [facility], [place], [address], 08/13/2023 17:08:52 08/09/20 23 08/13/2023 MATER NIT21 PLUS CORE test method Commen t See Notes Circu latin g cell- free DNA was purif ied from the plasm a compo nent of mater nal blood . The extra cted DNA was then conve rted into a [employer] henny ry for aneup loidy melvin sis of chrom osome s 21, 18, and 13 via next gener ation seque ncing .[1] Optio nal findi ngs based on the test order inclu de sex chrom osome aneup loidy (SCA) [2], and enhan toby seque ncing serie s (ESS) [3], which will only be repor varun on as an addit ional findi ng when an abnor malit y is detec varun. SCA testi ng inclu chris infor matio n on X and Y repre senta tion, while ESS testi ng inclu chris delet ions in selec varun regio ns (22q, 15q, 11q, 8q, 5p, 4p, 1p) and triso my of chrom osome s 16 and 22. Not Available [facility] ([facility]) [address] [facility], [place], [address], 08/13/2023 17:08:52 11/28/08/13/2023 MATER NIT21 PLUS CORE performance Commen t The perfo rmanc e ian cteri stics of the Mater niT(R ) 21 PLUS labor atory -deve loped test (LDT) have been deter mined in a clini kelly valid ation study with pregn ant women at incre ased risk for chrom osoma l aneup loidy .[1-4 ] Not Available [facility] ([facility]) [address] [facility], [place], [address], 08/13/2023 17:08:52 08/09/2008/13/2023 MATER NIT21 PLUS CORE performance characterist ics Note ----- ----- ----- ----- ----- ----- ----- ----- ----- ----- ----- ---- ! Sex ! Accur acy: 99.4% ! !---- ----- ----- ----- ----- ----- ----- ----- ----- ----- ----- ---! ! Sena n (kristyn darden syndr ome) ! Est. Sens# ! Est. Spec ! !---- ----- ----- ----- ----- ----- ----- ----- ----- ----- ----- ---! ! Jaguar my 21 (Chelsey Syndr ome) ! 99.1% ! 99.9% ! !---- ----- ----- ----- ----- ----- ----- ----- ----- ----- ----- ---! ! Jaguar pozo 18 (Eliel olivera Syndr ome) ! >99.9 % ! 99.6% ! !---- ----- ----- ----- ----- ----- ----- ----- ----- ----- ----- ---! ! Joeyo my 13 (Ryan u Syndr ome) ! 91.7% ! 99.7% ! !---- ----- ----- ----- ----- ----- ----- ----- ----- ----- ----- ---! ! Sex Chrom osome Aneup loidi es## ! 96.2% ! 99.7% ! !---- ----- ----- ----- ----- ----- ----- ----- ----- ----- ----- ---! * As repor varun in ISCA datab ase nstd3 7 [http s://w ti.nc bi.nl .[facility] .gov/ dbvar /stud ies/n std37 / ] # Estim ated Sensi tivit y. Sensi tivit y estim ated acros s the obser buck size distr ibuti on of each syndr ome [per ISCA datab ase nstd3 7] and acros s the range of fract ions obser buck in routi ne clini kelly NIPT. Actua l sensi tivit y can also be influ enced by other facto rs such as the size of the event , total seque nce count s, ampli ficat ion bias, or seque nce bias. ## Singl eton gesta tion only. Not Available [facility] ([facility]) [address] [facility], [place], [address], 08/13/2023 17:08:52 08/09/20 23 08/13/2023 MATER NIT21 PLUS CORE limitations of the test Commen t While the resul ts of these tests are highl y relia ble, disco rdant resul ts, inclu ding inacc urate sex predi ction , may occur due to place ntal, mater nal, or mosai cism or neopl asm; vanis viviane twin; prior mater nal organ trans plant ; or other cause s. These tests are scree yobani tests and not diagn ostic ; they do not repla ce the accur acy and preci ander of prena precious diagn osis with CVS or amnio cente sis. A patie nt with a posit jn test resul t shoul d be refer red for edgar ic couns eling and offer ed invas jn prena precious diagn osis for confi rmati on of test resul ts.[5 ] The resul ts of this testi ng, inclu ding the benef its and limit ation s, shoul d be discu ssed with a quali fied healt hcare provi yamileth. Pregn gal manag ement decis ions, inclu ding termi natio n of the pregn gal, shoul d not be based on the resul ts of these tests alone . The healt hcare provi yamileth is respo nsibl e for the use of this infor matio n in the manag ement of their patie nt. Sex chrom osoma l aneup loidi es are not repor table for known multi ple gesta tions . A negat jn resul t does not ensur e an unaff ected pregn gal nor does it exclu de the possi bilit y of other chrom osoma l abnor malit ies or defec ts which are not a part of these tests . An uninf ormat jn resul t may be repor varun, the cause s of which may inclu de, but are not limit ed to, insuf ficie nt seque ncing cover age, noise or artif acts in the regio n, ampli ficat ion or seque ncing bias, or insuf ficie nt fract ion. These tests are not inten ded to ident zeinab pregn ancie s at risk for neura l tube defec ts or ventr al wall defec ts. Testi ng for whole chrom osome abnor malit ies (incl uding sex chrom osome s) and for subch romos omal abnor malit ies could lead to the poten tial disco very of both and mater nal genom ic abnor malit ies that could have major , minor , or no, clini kelly signi fican ce. Evalu ating the signi fican ce of a posit jn or a non-r eport able resul t may invol ve both invas jn testi ng and addit ional studi es on the mothe r. Such inves tigat ions may lead to a diagn osis of mater nal chrom osoma l or subch romos omal abnor malit ies, which on occas ion may be assoc iated with benig n or malig nant mater nal neopl asms. These tests may not accur ately ident zeinab tripl oidy, zaid toby rearr angem ents, or the preci se locat ion of subch romos omal dupli catio ns or delet ions; these may be detec varun by prena precious diagn osis with CVS or amnio cente sis. The abili ty to repor t resul ts may be impac varun by mater nal BMI, mater nal weigh t, mater nal syste rosa lupus eryth emato gerson (SLE) and/o r by certa in pharm aceut ical agent s such as low molec ular weigh t hepar in (for examp le: Loven ox(R) , Xapar in(R) , Clexa ne(R) and Fragm in(R) ). Not Available [facility] ([facility]) [address] [facility], [place], [address], 08/13/2023 17:08:52 08/09/20 23 08/13/2023 MATER NIT21 PLUS CORE note Commen t See Notes [employer] is a subsi diary of Labor atory Corpo ratio n of Jordyn Torresi ngs, using the brand Trot. This test was devel oped and its perfo rmanc e ian cteri stics deter mined by ED01 rp. It has not been clear ed or appro buck by the Food and Drug Admin istra tion. This labor atory is certi fied under the Clini kelly Labor atory Impro vemen t Amend ments (CLIA ) as quali fied to perfo rm high compl exity clini kelly labor atory testi ng and accre dited by the Colle adalberto of [employer] can Patho logis ts (CAP) . Not Available [facility] ([facility]) [address] [facility], [place], [address], 08/13/2023 17:08:52 08/09/20 23 08/13/2023 MATER NIT21 PLUS CORE references Commen t 1. Pasquale REYEZ, et al. Edgar Med. 2012; 14(3) :296- 305. 2. Lily SOFIA, et al. Prena t Diag. 2013; 33(6) :591- 597. 3. El C, et al. Clin Chem. 2015 Dec;6 1(4): 608-6 16. 4. Pasquale REYEZ, et al. Edgar Med. 2011; 13(11 ):913 -920. 5. ACOG/ SMFM Pract ice Bulle tin No. 226, Jun 2020. Not Available [facility] ([facility]) [address] [facility], [place], [address], 08/13/2023 17:08:52 08/09/20 23 08/13/2023 MATER NIT21 PLUS CORE pdf . Not Available [facility] ([facility]) [address] [facility], [place], [address], 08/13/2023 17:08:52 08/09/20 23 08/09/2023 PREGN GAL, INITI AL SCREE N WBC 6.5 x10e3 /uL 3.4-10 .8 Not Available [facility] ([facility]) [address] [facility], [place], [address], 08/23/2023 11:13:48 08/09/20 23 08/09/2023 PREGN GAL, INITI AL SCREE N RBC 4.04 x10e6 /uL 3.77-5 .28 Not Available [facility] ([facility]) [address] [facility], [place], [address], 08/23/2023 11:13:48 08/09/20 23 08/09/2023 PREGN GAL, INITI AL SCREE N hemoglobin 12.5 g/dL 11.1-1 5.9 Not Available [facility] ([facility]) [address] [facility], [place], [address], 08/23/2023 11:13:48 08/09/20 23 08/09/2023 PREGN GAL, INITI AL SCREE N hematocrit 36.0 % 34.0-4 6.6 Not Available [facility] ([facility]) [address] [facility], [place], [address], 08/23/2023 11:13:48 08/09/20 23 08/09/2023 PREGN GAL, INITI AL SCREE N MCV 89 fL 79-97 Not Available [facility] ([facility]) [address] [facility], [place], [address], 08/23/2023 11:13:48 08/09/20 23 08/09/2023 PREGN GAL, INITI AL SCREE N MCH 30.9 pg 26.6-3 3.0 Not Available [facility] ([facility]) [address] [facility], [place], [address], 08/23/2023 11:13:48 08/09/2008/09/2023 PREGN GAL, INITI AL SCREE N MCHC 34.7 g/dL 31.5-3 5.7 Not Available [facility] ([facility]) [address] [place], [address], 08/23/2023 11:13:48 08/09/20 23 08/09/2023 PREGN GAL, INITI AL SCREE N RDW 13.9 % 11.7-1 5.4 Not Available [facility] ([facility]) [address] [place], [address], 08/23/2023 11:13:48 08/09/20 23 08/09/2023 PREGN GAL, INITI AL SCREE N platelets 209 x10e3 /uL 150-45 0 Not Available [facility] ([facility]) [address] [place], [address], 08/23/2023 11:13:48 08/09/20 23 08/09/2023 PREGN GAL, INITI AL SCREE N neutrophils 69 % notest ab. Not Available [facility] ([facility]) [address] [facility], [place], [address], 08/23/2023 11:13:48 08/09/20 23 08/09/2023 PREGN GAL, INITI AL SCREE N lymphs 23 % notest ab. Not Available [facility] ([facility]) [address] [facility], [place], [address], 08/23/2023 11:13:48 08/09/20 23 08/09/2023 PREGN GAL, INITI AL SCREE N monocytes 7 % notest ab. Not Available [facility] ([facility]) [address] [facility], [place], [address], 08/23/2023 11:13:48 08/09/20 23 08/09/2023 PREGN GAL, INITI AL SCREE N eos 1 % notest ab. Not Available [facility] ([facility]) [address] [facility], [place], [address], 08/23/2023 11:13:48 08/09/20 23 08/09/2023 PREGN GAL, INITI AL SCREE N basos 0 % notest ab. Not Available [facility] ([facility]) [address] [facility], [place], [address], 08/23/2023 11:13:48 08/09/20 23 08/09/2023 PREGN GAL, INITI AL SCREE N neutrophils (absolute) 4.4 x10e3 /uL 1.4-7. 0 Not Available [facility] ([facility]) [address] [facility], [place], [address], 08/23/2023 11:13:48 08/09/20 23 08/09/2023 PREGN GAL, INITI AL SCREE N lymphs (absolute) 1.5 x10e3 /uL 0.7-3. 1 Not Available [facility] ([facility]) [address] [place], [address], 08/23/2023 11:13:48 08/09/20 23 08/09/2023 PREGN GAL, INITI AL SCREE N monocytes(ab solute) 0.5 x10e3 /uL 0.1-0. 9 Not Available [facility] ([facility]) [address] [place], [address], 08/23/2023 11:13:48 08/09/20 23 08/09/2023 PREGN GAL, INITI AL SCREE N eos (absolute) 0.1 x10e3 /uL 0.0-0. 4 Not Available [facility] ([facility]) [address] [place], [address], 08/23/2023 11:13:48 08/09/20 23 08/09/2023 PREGN GAL, INITI AL SCREE N baso (absolute) 0.0 x10e3 /uL 0.0-0. 2 Not Available [facility] ([facility]) [address] [place], [address], 08/23/2023 11:13:48 08/09/20 23 08/09/2023 PREGN GAL, INITI AL SCREE N immature granulocytes 0 % notest ab. Not Available [facility] ([facility]) [address] [place], [address], 08/23/2023 11:13:48 08/09/20 23 08/09/2023 PREGN GAL, INITI AL SCREE N immature grans (abs) 0.0 x10e3 /uL 0.0-0. 1 Not Available [facility] ([facility]) [address] [place], [address], 08/23/2023 11:13:48 11/2808/10/2023 PREGN GAL, INITI AL SCREE N HBsAg screen Negati ve negati ve Not Available [facility] ([facility]) [address] [place], [address], 08/23/2023 11:13:48 08/09/20 23 08/10/2023 PREGN GAL, INITI AL SCREE N HCV Ab Non Reacti ve nonrea ctive Not Available [facility] ([facility]) [address] [place], [address], 08/23/2023 11:13:48 08/09/2008/10/2023 PREGN GAL, INITI AL SCREE N RPR Non Reacti ve nonrea ctive Not Available [facility] ([facility]) [address] [place], [address], 08/23/2023 11:13:48 08/09/2008/10/2023 PREGN GAL, INITI AL SCREE N rubella antibodies, IgG 3.14 index immune >0.99 Non-i mmune <0.90 Equiv ocal 0.90 - 0.99 Immun e >0.99 Not Available [facility] ([facility]) [address] [place], [address], 08/23/2023 11:13:48 08/09/20 23 08/10/2023 PREGN GAL, INITI AL SCREE N ABO grouping O Not Available [facility] ([facility]) [address] [place], [address], 08/23/2023 11:13:48 08/09/2008/10/2023 PREGN GAL, INITI AL SCREE N Rh factor Positi ve Pleas e note: Prior recor ds for this patie nt's ABO / Rh type are not avail able for addit ional verif icati on. Not Available [facility] ([facility]) [address] [place], [address], 08/23/2023 11:13:48 08/09/2008/10/2023 PREGN GAL, INITI AL SCREE N antibody screen Negati ve negati ve Not Available [facility] ([facility]) [address] [facility], [place], [address], 08/23/2023 11:13:48 08/09/2008/10/2023 PREGN GAL, INITI AL SCREE N HIV Ab/P24 Ag screen Non Reacti ve nonrea ctive HIV Negat jn HIV-1 /HIV- 2 antib odies and HIV-1 p24 antig en were NOT detec varun. There is no labor atory evide nce of HIV infec tion. Not Available [facility] ([facility]) [address] [facility], [place], [address], 08/23/2023 11:13:48 08/09/2008/10/2023 PREGN GAL, INITI AL SCREE N specific gravity 1.022 1.005- 1.030 Not Available [facility] ([facility]) [address] [facility], [place], [address], 08/23/2023 11:13:48 08/09/2008/10/2023 PREGN GAL, INITI AL SCREE N pH 5.5 5.0-7. 5 Not Available [facility] ([facility]) [address] [place], [address], 08/23/2023 11:13:48 08/09/2008/10/2023 PREGN GAL, INITI AL SCREE N urine-color Yellow yellow Not Available [facility] ([facility]) [address] [place], [address], 08/23/2023 11:13:48 08/09/2008/10/2023 PREGN GAL, INITI AL SCREE N appearance Cloudy clear abnormal Not Available [facility] ([facility]) [address] [place], [address], 08/23/2023 11:13:48 08/09/2008/10/2023 PREGN GAL, INITI AL SCREE N WBC esterase Negati ve negati ve Not Available [facility] ([facility]) [address] [place], [address], 08/23/2023 11:13:48 08/09/2008/10/2023 PREGN GAL, INITI AL SCREE N protein Negati ve negati ve/tra ce Not Available [facility] ([facility]) [address] [place], [address], 08/23/2023 11:13:48 08/09/2008/10/2023 PREGN GAL, INITI AL SCREE N glucose Negati ve negati ve Not Available [facility] ([facility]) [address] [place], [address], 08/23/2023 11:13:48 08/09/2008/10/2023 PREGN GAL, INITI AL SCREE N ketones Negati ve negati ve Not Available [facility] ([facility]) [address] [place], [address], 08/23/2023 11:13:48 08/09/2008/10/2023 PREGN GAL, INITI AL SCREE N occult blood Negati ve negati ve Not Available [facility] ([facility]) [address] [place], [address], 08/23/2023 11:13:48 08/09/2008/10/2023 PREGN GAL, INITI AL SCREE N bilirubin Negati ve negati ve Not Available [facility] ([facility]) [address] [place], [address], 08/23/2023 11:13:48 08/09/20 23 08/10/2023 PREGN GAL, INITI AL SCREE N urobilinogen ,semi-qn 0.2 mg/dL 0.2-1. 0 Not Available [facility] ([facility]) [address] [facility], [place], [address], 08/23/2023 11:13:48 08/09/20 23 08/10/2023 PREGN GAL, INITI AL SCREE N nitrite, urine Negati ve negati ve Not Available [facility] ([facility]) [address] [facility], [place], [address], 08/23/2023 11:13:48 08/09/20 23 08/10/2023 PREGN GAL, INITI AL SCREE N microscopic examination Commen t Micro scopi c follo ws if indic ated. Not Available [facility] ([facility]) [address] [facility], [place], [address], 08/23/2023 11:13:48 08/09/20 23 08/10/2023 PREGN GAL, INITI AL SCREE N microscopic examination See below: Micro scopi c was indic ated and was perfo rmed. Not Available [facility] ([facility]) [address] [facility], [place], [address], 08/23/2023 11:13:48 08/09/20 23 08/11/2023 PREGN GAL, INITI AL SCREE N chlamydia trachomatis, BLAS Negati ve negati ve Not Available [facility] ([facility]) [address] [place], [address], 08/23/2023 11:13:48 08/09/20 23 08/11/2023 PREGN GAL, INITI AL SCREE N neisseria gonorrhoeae, BLAS Negati ve negati ve Not Available [facility] ([facility]) [address] [place], [address], 08/23/2023 11:13:48 08/09/20 23 08/11/2023 PREGN GAL, INITI AL SCREE N urine culture,pren atal, w/gbs Final report Not Available [facility] ([facility]) [address] [place], [address], 08/23/2023 11:13:48 08/09/20 23 08/10/2023 NUSWA B VAGIN ITIS (VG) atopobium vaginae High - 2 score abnormal Not Available [facility] ([facility]) [address] [facility], [place], [address], 08/23/2023 11:13:49 08/09/2008/10/2023 NUSWA B VAGIN ITIS (VG) bvab 2 Low - 0 score Not Available [facility] ([facility]) [address] [facility], [place], [address], 08/23/2023 11:13:49 08/09/2008/10/2023 NUA B VAGIN ITIS (VG) megasphaera 1 Low - 0 score Calcu late total score by leslie costa the 3 indiv idual bacte rial vagin osis (BV) marke r score s toget her. Total score is inter prete d as follo ws: Total score 0-1: Indic ates the absen ce of BV. Total score 2: Indet ermin ate for BV. Addit ional clini kelly data shoul d be evalu ated to estab frantz a diagn osis. Total score 3-6: Indic ates the prese nce of BV. This test was devel oped and its perfo rmanc e ian cteri stics deter mined by [facility]. It has not been clear ed or appro buck by the Food and Drug Admin istra tion. Not Available [facility] ([facility]) [address] [facility], [place], [address], 08/23/2023 11:13:49 08/09/20 23 08/10/2023 NUSWA B VAGIN ITIS (VG) theodore albicans, BLAS Negati ve negati ve Not Available [facility] ([facility]) [address] [facility], [place], [address], 08/23/2023 11:13:49 08/09/20 23 08/10/2023 NUSWA B VAGIN ITIS (VG) theodore glabrata, BLAS Negati ve negati ve Not Available [facility] ([facility]) [address] [facility], [place], [address], 08/23/2023 11:13:49 08/09/20 23 08/11/2023 NUSWA B VAGIN ITIS (VG) trich vag by BLAS Negati ve negati ve Not Available [facility] ([facility]) [address] [facility], [place], [address], 08/23/2023 11:13:49 08/09/2008/09/2023 CYSTI C FIBRO SIS PROFI LE comment: Commen t The assay provi chris infor matio n inten ded to be used for alexsandra er scree yobani in adult s of repro ducti ve age, as an aid in [facility] rn scree yobani, and as a confi rmato ry test for anoth er medic ally estab lishe d diagn osis in [facility] rns and child bridger. The test is not indic ated for use in diagn ostic testi ng, pre-i mplan tatio n scree yobani, or for any stand -ivone e diagn ostic purpo ses witho ut confi rmati on by anoth er medic ally estab lishe d diagn ostic produ ct or proce dure. Eff ectiv e Janua ry 2023 46637 3 Cysti c Fibro sis Profi le will be made non-o rdera ble. This inclu chris any custo m profi les which conta in this test. [facility] offer s alter nativ e cysti c fibro sis testi ng. Avail able alter nativ es are: 39231 2 CF Full- gene Alexsandra er Scree n for alexsandra er seque nce melvin sis by NGS; 53478 5 Cysti c Fibro sis, 97 Varia nts for alexsandra er or diagn ostic targe varun melvin sis; and 18505 9 GeneS eq PLUS, CFTR for diagn ostic seque nce melvin sis by NGS. Pleas e conta ct your local [facility] repre senta tive to discu ss testi ng optio ns. Not Available [facility] ([facility]) [address], [place], [address], 08/23/2023 11:13:50 08/09/20 23 08/23/2023 CYSTI C FIBRO SIS PROFI LE CF, screen Commen t: RESUL TS: Negat jn for 32 mutat ions melvin zed INTER PRETA TION: This indiv idual is negat jn for the mutat ions melvin zed. This negat jn resul t may need furth er inter preta tion depen ding on the clini kelly indic ation . This resul t reduc es but does not elimi gil the risk to be a CF alexsandra er. COMME NTS: The detec tion rate varie s with [place] and is liste d below . The prese nce of an undet ected mutat ion in the CF gene canno t be ruled out. In the absen ce of famil y histo ry, the remai yobani risk that a perso n with a negat jn resul t could have at least one CF mutat ion is liste d in the table . If there is a famil y histo ry of CF, these risk figur es do not apply . As detai led infor bogdan baker this indiv idual 's famil y histo ry would permi t a more accur ate asses sment of this indiv idual 's risk to be a alexsandra er of cysti c fibro sis, pleas e conta ct [facility]i feli at for a salena ed repor t. Mutat ion Detec tion Detec tion rates are based on mutat ion Rates among Ethni c frequ encie s in patie nts affec varun with Group s cysti c fibro sis. Among indiv idual s with an atypi kelly or mild prese ntati on (e.g. conge nital absen ce of the vas defer ens, pancr eatit is) detec tion rates may vary from those provi ded here: Alexsandra er risk reduc tion when no famil y histo ry Detec tion [place] city Rate Rosie narosalba 10/07 to 97% Jewis h Cauca jamila 10/06 to 90% (non- Hispa alia) Afric an-Am nannette n to 69% Hispa alia to 73% to 55% This inter preta tion is based on the clini kelly and famil y relat ionsh ip infor matio n provi ded and the curre nt under stand ing of the [facility] edgar ics of this condi tion. MUTAT IONS MELVIN ZED: G85E V520F W1282 X 2183A A to G R117H G542X N1303 K 2184d Hong R334W S549N 394de lTT 2789+ 5G to A R347H S549R 621+1 G to T 3120+ 1G to A R347P G551D 711+1 G to T 3659d elC A455E R553X 1078d elT 3849+ 10kbC to T Delta I507 R560T 1717- 1G to A 3876d Hong Delta F508 R1162 X 1898+ 1G to A 3905i nsT METHO DS/LI MITAT IONS: DNA is isola varun from the sampl e and teste d for the 32 CF mutat ions on the [employer] or[employer] (Isidra nex). Regio ns of the CFTR gene are ampli fied enzym atica lly and subje cted to a solut ion-p hase multi plex allel e-spe cific prime r exten ander with subse quent hybri dizat ion to a bead array and fluor escen ce detec tion. Polym orphi sms F508C , I506V and I507V are inclu ded in this panel to rule out false posit jn delta F508 homoz ygote s. Refle x testi ng of 5T is inclu ded in the panel for R117H inter preta tion. False posit jn or negat jn resul ts may occur for reaso ns that inclu de edgar ic varia nts, blood trans fusio ns, bone marro w trans plant ation , erika eous repre senta tion of famil y relat ionsh ips or conta minat ion of a sampl e with mater nal cells . REFER ENCES : 1. Updat es on Alexsandra er Scree yobani for Cysti c Fibro sis. (2011 ) Am J Ob Gynec ol 117(4 ):102 8-103 1 2. Marlono n, et al. (2004 ) Edgar Med 6:387 -91 3. Leslie olivera, et al. (2002 ) Edgar Med 4:379 -391 4. Preco ncept ion and prena precious alexsandra er scree yobani for cysti c fibro sis: (2000 )ACOG .ACMG publi catio n Resul ts Relea sed By: Gi Patterson, PhD, [facility] [address] [facility] , [place] [address] Repor t Relea sed By: Gi Patterson, Ph.D. , [facility] Not Available [facility] ([facility]) [address] [place], [address], 08/23/2023 11:13:50 08/09/20 23 08/23/2023 CYSTI C FIBRO SIS PROFI LE pdf . Not Available [facility] ([facility]) [address] [place], [address], 08/23/2023 11:13:50 08/09/20 23 08/12/2023 DRUG SCREE N 17 W/CON F, UR creatinine 129 mg/dL REFER ENCE RANGE : Ref Range >=20 Not Available [facility] ([facility]) [address] [place], [address], 08/23/2023 11:13:51 08/09/20 23 08/12/2023 DRUG SCREE N 17 W/CON F, UR ethanol biomarkers ia Negati ve NG/mL cutoff :500 Not Available [facility] ([facility]) [address] [place], [address], 08/23/2023 11:13:51 08/09/20 23 08/12/2023 DRUG SCREE N 17 W/CON F, UR amphetamines ia Negati ve NG/mL cutoff :300 Not Available [facility] ([facility]) [address] [place], [address], 08/23/2023 11:13:51 08/09/20 23 08/12/2023 DRUG SCREE N 17 W/CON F, UR barbiturates ia Negati ve NG/mL cutoff :200 Not Available [facility] ([facility]) [address] [place], [address], 08/23/2023 11:13:51 08/09/20 23 08/12/2023 DRUG SCREE N 17 W/CON F, UR benzodiazepi bre ia Negati ve NG/mL cutoff :50 Not Available [facility] ([facility]) [address] [place], [address], 08/23/2023 11:13:51 08/09/20 23 08/12/2023 DRUG SCREE N 17 W/CON F, UR cocaine metabolite ia Negati ve NG/mL cutoff :150 Not Available [facility] ([facility]) [address] [place] [address], [address], 08/23/2023 11:13:51 08/09/20 23 08/12/2023 DRUG SCREE N 17 W/CON F, UR phencyclidin e ia Negati ve NG/mL cutoff :25 Not Available [facility] ([facility]) [address] [place], [address], 08/23/2023 11:13:51 08/09/20 23 08/12/2023 DRUG SCREE N 17 W/CON F, UR cannabinoids ia Negati ve NG/mL cutoff :20 Not Available [facility] ([facility]) [address] [place], [address], 08/23/2023 11:13:51 08/09/20 23 08/12/2023 DRUG SCREE N 17 W/CON F, UR 6-acetylmorp autumn ia Negati ve NG/mL cutoff :10 Not Available [facility] ([facility]) [address] [place], [address], 08/23/2023 11:13:51 08/09/20 23 08/12/2023 DRUG SCREE N 17 W/CON F, UR opiate class ia Negati ve NG/mL cutoff :100 Not Available [facility] ([facility]) [address] [place], [address], 08/23/2023 11:13:51 08/09/20 23 08/12/2023 DRUG SCREE N 17 W/CON F, UR oxycodone class ia Negati ve NG/mL cutoff :100 Not Available [facility] ([facility]) [address] [place], [address], 08/23/2023 11:13:51 08/09/20 23 08/12/2023 DRUG SCREE N 17 W/CON F, UR methadone ia Negati ve NG/mL cutoff :100 Not Available [facility] ([facility]) [address] [place], [address], 08/23/2023 11:13:51 08/09/20 23 08/12/2023 DRUG SCREE N 17 W/CON F, UR fentanyl ia Negati ve NG/mL cutoff :2.0 Not Available [facility] ([facility]) [address] [place], [address], 08/23/2023 11:13:51 08/09/20 23 08/12/2023 DRUG SCREE N 17 W/CON F, UR buprenorphin e ia Negati ve NG/mL cutoff :5.0 Not Available [facility] ([facility]) [address] [place], [address], 08/23/2023 11:13:51 08/09/20 23 08/12/2023 DRUG SCREE N 17 W/CON F, UR tramadol ia Negati ve NG/mL cutoff :200 Not Available [facility] ([facility]) [address] [place], [address], 08/23/2023 11:13:51 08/09/20 23 08/12/2023 DRUG SCREE N 17 W/CON F, UR propoxyphene ia Negati ve NG/mL cutoff :300 Not Available [facility] ([facility]) [address] [place], [address], 08/23/2023 11:13:51 08/09/20 23 08/12/2023 DRUG SCREE N 17 W/CON F, UR tapentadol, ia Negati ve NG/mL cutoff :200 Not Available [facility] ([facility]) [address] [place], [address], 08/23/2023 11:13:51 08/09/20 23 08/12/2023 DRUG SCREE N 17 W/CON F, UR nicotine metabolite Negati ve Not Available [facility] ([facility]) [address] [place], [address], 08/23/2023 11:13:51 08/09/2008/12/2023 DRUG SCREE N 17 W/CON F, UR cotinine Not Detect ed NG/mL Not Available [facility] ([facility]) [address] [place], [address], 08/23/2023 11:13:51 08/09/2008/10/2023 HB SOLU + RFLX FRAC hemoglobin (HGB) solubility Negati ve negati ve Not Available [facility] ([facility]) [address] [place], [address], 08/23/2023 11:13:52 08/09/2008/10/2023 VARIC LENY- ZOSTE R V AB, IGG varicella zoster IgG 2385 index immune >165 Negat jn <135 Equiv ocal 135 - 165 Posit jn >165 A posit jn resul t gener ally indic ates expos ure to the patho gen or admin istra tion of speci fic immun oglob ulins , but it is not indic ation of activ e infec tion or stage of disea se. Not Available [facility] ([facility]) [address] [facility], [place], [address], 08/23/2023 11:13:53 08/09/2008/11/2023 RESUL T result 1 Commen t Mixed uroge nital inderjit 25,00 0-50, 000 colon y formi ng units per mL Not Available [facility] ([facility]) [address] [facility], [place], [address], 08/23/2023 11:13:53 08/09/2008/10/2023 MICRO SCOPI C EXAMI NATIO N WBC 0-5 /hpf 0-5 Not Available [facility] ([facility]) [address] [facility], [place], [address], 08/23/2023 11:13:50 08/09/20 23 08/10/2023 MICRO SCOPI C EXAMI NATIO N RBC 0-2 /hpf 0-2 Not Available [facility] ([facility]) [address] [facility], [place], [address], 08/23/2023 11:13:50 08/09/2008/10/2023 MICRO SCOPI C EXAMI NATIO N epithelial cells (non renal) >10 /hpf 0-10 abnormal Not Available [facility] ([facility]) [address] [facility], [place], [address], 08/23/2023 11:13:50 08/09/2008/10/2023 MICRO SCOPI C EXAMI NATIO N casts None seen /lpf nonese en Not Available [facility] ([facility]) [address] [place], [address], 08/23/2023 11:13:50 08/09/20 23 08/10/2023 MICRO SCOPI C EXAMI NATIO N mucus threads Presen t notest ab. Not Available [facility] ([facility]) [address] [facility], [place], [address], 08/23/2023 11:13:50 08/09/20 23 08/10/2023 MICRO SCOPI C EXAMI NATIO N bacteria Many nonese en/few abnormal Not Available [facility] ([facility]) [address] [facility], [place], [address], 08/23/2023 11:13:50 08/09/2008/10/2023 INTER PRETA TION: interpretati on: Commen t Not infec varun with HCV unles s early or acute infec tion is suspe cted (whic h may be delay ed in an immun ocomp romis ed indiv idual ), or other evide nce exist s to indic ate HCV infec tion. Not Available [facility] ([facility]) [address] [facility], [place], [address], 08/23/2023 11:13:48 08/09/2008/09/2023 urina lysis , dipst ick Leukocytes Negati ve Not Available In-Office Order Internal Use Only DO Not Attach Compendium DO Not Attach Compendium, Do Not Delete/merge, [id number] 08/09/2023 09:24:08 08/09/2008/09/2023 urina lysis , dipst ick Nitrite negati ve Not Available In-Office Order Internal Use Only DO Not Attach Compendium DO Not Attach Compendium, Do Not Delete/merge, [id number] 08/09/2023 09:24:08 08/09/2008/09/2023 urina lysis , dipst ick Urobilinogen .2 Not Available In-Of fice Order Internal Use Only DO Not Attach Compendium DO Not Attach Compendium, Do Not Delete/merge, [id number] 08/09/2023 09:24:08 08/09/20 23 08/09/2023 urina lysis , dipst ick Protein Negati ve Not Available In-Office Order Internal Use Only DO Not Attach Compendium DO Not Attach Compendium, Do Not Delete/merge, 08/09/2023 09:24:08 08/09/20 23 08/09/2023 urina lysis , dipst ick pH 5.0 Not Available In-Office Order Internal Use Only DO Not Attach Compendium DO Not Attach Compendium, Do Not Delete/merge, 08/09/2023 09:24:08 08/09/20 23 08/09/2023 urina lysis , dipst ick Blood Negati ve Not Available In-Office Order Internal Use Only DO Not Attach Compendium DO Not Attach Compendium, Do Not Delete/merge, 08/09/2023 09:24:08 08/09/20 23 08/09/2023 urina lysis , dipst ick Specific Chase[place] 1.025 Not Available In-Off ice Order Internal Use Only DO Not Attach Compendium DO Not Attach Compendium, Do Not Delete/merge, 08/09/2023 09:24:08 08/09/20 23 08/09/2023 urina lysis , dipst ick Ketone Negati ve Not Available In-Office Order Internal Use Only DO Not Attach Compendium DO Not Attach Compendium, Do Not Delete/merge, 08/09/2023 09:24:08 08/09/20 23 08/09/2023 urina lysis , dipst ick Bilirubin Negati ve Not Available In-Office Order Internal Use Only DO Not Attach Compendium DO Not Attach Compendium, Do Not Delete/merge, 08/09/2023 09:24:08 08/09/20 23 08/09/2023 urina lysis , dipst ick Glucose Negati ve Not Available In-Office Order Internal Use Only DO Not Attach Compendium DO Not Attach Compendium, Do Not Delete/merge, 08/09/2023 09:24:08 08/09/20 23 08/09/2023 urina lysis , dipst ick Appearance Clear Not Available In-Offi ce Order Internal Use Only DO Not Attach Compendium DO Not Attach Compendium, Do Not Delete/merge, [id number] 08/09/2023 09:24:08 08/09/20 23 08/09/2023 urina lysis , dipst ick Color Yellow Not Available In-Office Order Internal Use Only DO Not Attach Compendium DO Not Attach Compendium, Do Not Delete/merge, [id number] 08/09/2023 09:24:08 08/09/20 23 08/09/2023 pregn gal test, urine HCG positi ve Not Available In-Office Order Internal Use Only DO Not Attach Compendium DO Not Attach Compendium, Do Not Delete/merge, [id number] 08/09/2023 09:21:21 08/17/20 23 08/17/2023 urina lysis , dipst ick Leukocytes Negati ve Not Available In-Office Order Internal Use Only DO Not Attach Compendium DO Not Attach Compendium, Do Not Delete/merge, [id number] 08/17/2023 12:43:44 08/17/20 23 08/17/2023 urina lysis , dipst ick Nitrite negati ve Not Available In-Office Order Internal Use Only DO Not Attach Compendium DO Not Attach Compendium, Do Not Delete/merge, [id number] 08/17/2023 12:43:44 08/17/20 23 08/17/2023 urina lysis , dipst ick Urobilinogen 1 Not Available In-Of fice Order Internal Use Only DO Not Attach Compendium DO Not Attach Compendium, Do Not Delete/merge, [id number] 08/17/2023 12:43:44 08/17/20 23 08/17/2023 urina lysis , dipst ick Protein Trace Not Available In-Office Order Internal Use Only DO Not Attach Compendium DO Not Attach Compendium, Do Not Delete/merge, [id number] 08/17/2023 12:43:44 08/17/20 23 08/17/2023 urina lysis , dipst ick pH 7.0 Not Available In-Office Order Internal Use Only DO Not Attach Compendium DO Not Attach Compendium, Do Not Delete/merge, [id number] 08/17/2023 12:43:44 08/17/20 23 08/17/2023 urina lysis , dipst ick Blood Negati ve Not Available In-Office Order Internal Use Only DO Not Attach Compendium DO Not Attach Compendium, Do Not Delete/merge, [id number] 08/17/2023 12:43:44 08/17/20 23 08/17/2023 urina lysis , dipst ick Specific [place] 1.015 Not Available In-Off ice Order Internal Use Only DO Not Attach Compendium DO Not Attach Compendium, Do Not Delete/merge, [id number] 08/17/2023 12:43:44 08/17/20 23 08/17/2023 urina lysis , dipst ick Ketone Negati ve Not Available In-Office Order Internal Use Only DO Not Attach Compendium DO Not Attach Compendium, Do Not Delete/merge, [id number] 08/17/2023 12:43:44 08/17/20 23 08/17/2023 urina lysis , dipst ick Bilirubin Negati ve Not Available In-Office Order Internal Use Only DO Not Attach Compendium DO Not Attach Compendium, Do Not Delete/merge, [id number] 08/17/2023 12:43:44 08/17/20 23 08/17/2023 urina lysis , dipst ick Glucose Negati ve Not Available In-Office Order Internal Use Only DO Not Attach Compendium DO Not Attach Compendium, Do Not Delete/merge, [id number] 08/17/2023 12:43:44 08/17/20 23 08/17/2023 urina lysis , dipst ick Appearance Slight ly Cloudy Not Available In-Office Order Internal Use Only DO Not Attach Compendium DO Not Attach Compendium, Do Not Delete/merge, [id number] 08/17/2023 12:43:44 08/17/20 23 08/17/2023 urina lysis , dipst ick Color Yellow Not Available In-Office Order Internal Use Only DO Not Attach Compendium DO Not Attach Compendium, Do Not Delete/merge, [id number] 08/17/2023 12:43:44 08/09/20 23 08/09/2023 US, obste tric, 1st trime ster No observ ation record ed. [email or web address] Not Available 2022 12:08:17 08/09/20 23 08/09/2023 US, obste tric, 1st trime ster No observ ation record ed. [email or web address] [facility] [address] [place], [address], 08/18/2023 12:08:17 08/09/20 23 08/09/2023 US, obste tric, 1st trime ster No observ ation record ed. [email or web address] [facility] [address] [place], [address], 08/18/2023 12:08:18 08/09/20 23 08/09/2023 US, obste tric, 1st trime ster No observ ation record ed. [email or web address] [facility] [address] [place], [address], 08/18/2023 12:08:18 08/09/20 23 08/09/2023 US, obste tric, 1st trime ster No observ ation record ed. [email or web address] Scheduling [address] [place], [address], 08/26/2023 18:59:54 Result Notes None recorded. Problems Name Problem SNOMED Code Status Onset Date Resolution Date Notes Provider Name and Address Organization Details Recorded Time 12841792 Completed 202209/29/2024 Maureen Barbosa MD Attn: Mechellekennedy g,[address] [place], [address] , [facility] 5 23:11:53 Past history of premature delivery [id number] Completed 2022 Mahsa He[place]ble[place]w aite [place] - [facility] 3 12:58:58 Past history of pre-eclam psia [id number] 100 Completed 2022 Mahsa Hebble[place]w aite [place] - [facility] 3 12:58:58 Monochori onic diamnioti c twin [id number] Completed 2022 Mahsa Hebble[place]w aite [place] - [facility] 3 12:58:58 Palpitati ons [id number] Completed 2022 Mahsa Hekailynw aite [place] - [facility] 12:58:58 Problem Notes None recorded. Procedures Surgical History None recorded. Imaging Results Imaging Date Name Status LastModified by Organiz ation Details LastModified Time 08/09/2023 US, obstetric, 1st trimester completed [email or web address] Information not available 08/18/2023 12:08:17 08/09/2023 US, obstetric, 1st trimester completed [email or web address] [facility] [address] [place], [address], 08/18/2023 12:08:17 08/09/2023 US, obstetric, 1st trimester completed [email or web address] [address] [place], [address], 08/18/2023 12:08:18 08/09/2023 US, obstetric, 1st [email or web address] [place], [address], 08/18/2023 12:08:18 08/09/2023 US, obstetric, 1st trimester completed [email or web address] [facility] Scheduling [address] [place], [address], 08/26/2023 18:59:54 Procedure Notes None recorded. Medical Equipment None Reported. Allergies Allergen ID Allergen Name Allergen Category Reaction Reaction Severity Criticality Documentation Date Start Date Code Code System Note Provider Name and Address Organization Details Recorded Time 633975 [facility] pain severe Not available 08/09/202390724 2 RxNorm Not Available Not Available Not Available Medications Name Sig Start Date Stop Date Status Note LastModified by Organization Details LastModified Time amoxicillin 500 mg capsule TAKE 2 CAPSULES BY MOUTH TWICE DAILY FOR 10 DAYS 08/09 completed Not Available Not Available Not Available Lidocaine Viscous 2 % mucosal solution SWISH AND SPIT 15 ML OF SOLUTION AROUND AFFECED TOOTH EVERY 3 HOURS NEEDED FOR DENTAL PAIN 08/09 completed Not Available Not Available Not Available amoxicillin 250 mg/5 mL oral suspension TAKE 10ML BY MOUTH 3 TIMES A DAY 08/09 completed Not Available Not Available Not Available progesteron e micronized 200 mg capsule active Not Available Not Available Not Available aspirin 81 mg chewable tablet active Not Available Not Available Not Available polyethylen e glycol 3350 17 gram/dose oral powder active Not Available Not Available Not Available 28 mg iron-800 mcg tablet Take 1 tablet every day by oral route with meals for 30 days. active Not Available Not Available No t Available Vitals Date Recorded Body height Body mass index (BMI) Heart rate Respiratory rate Body temperature Systolic blood pressure Diastolic blood pressure Provider Name and Address Organization Details Last Updated DateTime 3 154.94 cm 23.4 kg/m2 68 /min 18 /min 98.3 [degF] 120 mm[Hg] 86 mm[Hg] Alexandria Amezcua MA [facility] 3 09:37:00 Date Recorded Body weight Provider Name an d Address Organization Details Last Updated DateTime 08/09/2023 13062.75560 g JOHANN WHITFIELD MD Attn: Accounting,[address] [place], [address], [facility] 08/19/2023 15:45:00 Date Recorded Body height Provider Name an d Address Organization Details Last Updated DateTime 08/17/2023 154.94 cm Ngoc aRmsey RN [facility] 08/17/20 23 11:43:16 Date Recorded Body mass index (BMI) Heart rate Heart rate Heart rate Body temperature Respiratory rate Oxygen saturation Oxygen saturation in Arterial blood by Pulse oximetry Systolic blood pressure Diastolic blood pressure Systolic blood pressure Diastolic blood pressure Systolic blood pressure Diastolic blood pressure Provider Name and Address Organization Details Last Updated DateTime 3 23.9 kg/m2 88 /min 102 /min 123 /min 99.5 [degF] 18 /min 98 % 98 % 110 mm[Hg] 69 mm[Hg] 117 mm[Hg] 79 mm[Hg] 114 mm[Hg] 82 mm[Hg] Monique Cooley MA [facility] 3 12:43:00 Date Recorded Body weight Provider Name an d Address Organization Details Last Updated DateTime 08/17/2023 [id number] julissa ARMAS DO Attn: Accounting,[address], [place], [address], [place] [facility] 08/17/2023 13:13:15 Social History Question Answer Notes LastModified by Organizat ion Details LastModified Time Tobacco Smoking Status Former Smoker Alexandria Amezcua MA [facility], [place] - [facility] 08/09/2023 09:37:58 What Is Your Level Of Alcohol Consumption? None Information not available 08/17/2023 What Was The Date Of Your Most Recent Tobacco Screening? 08/17/2023 Information not available 08/17/2023 Do You Use Any Illicit Or Recreational Drugs? No Information not available 08/17/2023 Has Tobacco Cessation Counseling Been Provided? Yes [email or web address] Information not available 08/09/2023 On What Date Was Tobacco Cessation Counseling Provided? 08/17/2023 Information not available 08/17/2023 Sex: Female Functional Status None recorded. Mental Status None recorded. Family History Nothing Reported. Medical History Condition Response Coronary Artery Disease N Other N Atrial Fibrillation N High Blood Pressure N Depression N COPD N Blood Clots N Anxiety Disorder N Muscle, Joint, or Bone Problems N Acid Reflux (GERD) N Cancer N Stroke N High Cholesterol N Liver Disease N Headaches N Kidney or Bladder Problems N Thyroid Problems N GI Problems N Skin Problems N Anemia N Heart Attack ([place]) N Diabetes N Seizures/Epilepsy N Asthma N Allergies N Hepatitis N Heart Failure N Osteoporosis N Gynecological History Statement/Question Response Date of LMP 05/24/2023 Obstetrics History GPAL:G 7 P 2 1 3 3 Type Value Full Term 2 Induced 2 Spontaneous 1 Premature 1 Living 3 Total 7 Immunizations Vaccine Type Date Status Note Provider Nam e and Address Organization Details Recorded Time Hib, unspecified formulation 4 completed MELISA ARMAS DO Attn: Accounting,[address], [place], [address], [facility] 08/17/2023 11:40:02 Hib, unspecified formulation 4 completed MELISA ARMAS DO Attn: Accounting,[address], [place], [address], [facility] 08/17/2023 11:40:03 Hib, unspecified formulation 3 completed MELISA ARMAS DO Attn: Accounting,[address], [place], [address], [place] [facility] 08/17/2023 11:40:03 Influenza, live, trivalent, intranasal 8 completed MELISA ARMAS DO Attn: Accounting,[address], [place], [address], [place] [facility] 08/17/2023 11:40:03 MMR 5 completed MELISA ARMAS DO Attn: Accounting,[address], [place], [address], [place] [facility] 08/17/2023 11:40:03 MMR 8 completed MELISA ARMAS DO Attn: Accounting,[address] [facility], [place], [address], [place] [facility] 08/17/2023 11:40:03 Tdap 8 completed MELISA ARMAS DO Attn: Accounting,[address], [place], [address], [place] [facility] 08/17/2023 11:40:03 DTP 4 completed MELISA ARMAS DO Attn: Accounting,[address] [facility], [place], [address], [place] [facility] 08/17/2023 11:40:03 DTP 5 completed MELISA ARMAS DO Attn: Accounting,[address], [place], [address], [place] [facility] 08/17/2023 11:40:03 DTP 4 completed MELISA ARMAS DO Attn: Accounting,[address] [facility], [place], [address], [place] [facility] 08/17/2023 11:40:03 DTP 3 completed MELISA ARMAS DO Attn: Accounting,[address] [facility], [place], [address], [place] [facility] 08/17/2023 11:40:03 OPV 4 completed MELISA ARMAS DO Attn: Accounting,[address] [facility], [place], [address], [place] [facility] 08/17/2023 11:40:03 OPV 5 completed MELISA ARMAS DO Attn: Accounting,[address] [facility], [place], [address], [place] [facility] 08/17/2023 11:40:03 OPV 3 completed MELISA ARMAS DO Attn: Accounting,[address], [place], [address], [place] [facility] 08/17/2023 11:40:03 OPV 8 completed MELISA ARMAS DO Attn: Accounting,[address], [place], [address], [place] [facility] 08/17/2023 11:40:03 HPV, quadrivalent 8 completed MELISA ARMAS DO Attn: Accounting,[address], [place], [address], [place] [facility] 08/17/2023 11:40:03 Hep B, adolescent or pediatric 4 completed MELISA ARMAS DO Attn: Accounting,[address], [place], [address], [place] [facility] 08/17/2023 11:40:03 Hep B, adolescent or pediatric 4 completed MELISA ARMAS DO Attn: Accounting,[address], [place], [address], [place] [facility] 08/17/2023 11:40:03 Hep B, adolescent or pediatric 4 completed MELISA ARMAS DO Attn: Accounting,[address], [place], [address], [place] [facility] 08/17/2023 11:40:03 meningococcal C conjugate 8 completed MLEISA ARMAS Attn: Accounting,[address], [place], [address], [facility] 08/17/2023 11:40:03 DTaP 8 completed MELISA PAWELDO Attn: Accounting,[address], [place], [address], [facility] 08/17/2023 11:40:03 Past Encounters Encounter ID Performer Location Encounter Start Date Encounter Closed Date Diagnosis/Indication Diagnosis SNOMED-CT Code Diagnosis ICD10 Code Diagnosis Note [id number] MD Jhonatan Castro 14 IM [address] [facility] [address] [place] [address] 08/09/2023 08:56:17 08/29/2023 13:48:16 Amenorrhea 93095745 N91.2 LMP 05/24/23HCG positive Routine an tenatal care 206914695 Z34.12 August is a 28 y/o presenting @ 11 weeks dated by US/LMP (05/24/23) with FLORIAN 02-28-2024 ; here for initial OB exam. Preg complicate d by: history of twin miscarriag e, subchronic hemorrhage , possible preeclamps ia. She has no significan t concerns today and reports normal antepartum symptoms of . She endorses good movement. She denies vaginal bleeding, vaginal discharge, loss of fluid, or contractio ns.- anticipato ry guidance provided- continue PNV- MFM consult recommende d- follow-up in 4 week OB plan: 28 y/o ; FLORIAN 02/28/24 based on LMP/USProb vicki List: US, obstetric, 1st trimester - 2 IUP with 3rd pseudo gestationa l/empty gestationa l sac; concordant with LMP; FLORIAN 02/28/24; MFM consult recommende d. 10-12 weeks done onDating US: 3; LMP: 05/24/23; IUP confirmed Twin gestations with a 3rd pseudo empty sac ; FLORIAN 02/28/24 based on LMP/US Pap: done on 08/09/23 with negative findingsVa ginal Cultures: NEGGC/Chla mydia: NEG Sequential /QUAD/Mate rniT21: Twin gestation. Negative for trisomies. Sex consistent with male. Screening for malignant neoplasm of cervix 333779223 Z12.4 - unknown last pap date or result [id number] MD Jhonatan Castro 14 IM [address] [facility] [place] [address] 08/17/2023 10:36:43 08/25/2023 12:41:01 Routine care [id number] Z34.91 OB plan: 28 y/o ; FLORIAN 02/28/2024 based on LMP concordant with 1st trimester US Problem List:[place] Di twinsHx of preeclamps iaHx of laborpalpi tations INITIAL LABSPENDIN GBlood Type:Rh Type:Antib marilyn Screen:CBC :VDRL/RPR: Urine Culture:HB sAg:HIV:Ch lamydia: NEGGC (weeks 10-12): NEGRubella :Varicella :CF:SS:UDS : 10-12 weeksDatin g US: 023; 2 IUP with 3rd pseudo gestationa l/empty gestationa l sac; concordant with LMP; FLORIAN 02/28/24; MFM consult recommende dPap: NILM, HPV negVaginal Cultures: NEGGC/Chla mydia: NEG Sequential /QUAD/Mate rniT21: Consistent with boy, otherwise normal Monochorio alia diamniotic twin [id number] O30.009 Past pregn gal history of pre-eclampsia [id number] 11563 Z87.59 Past pregn gal history of premature delivery 170513756 Z87.51 Palpitations 52732994 R0 0.2 Orthostati c VS normalLike ly related to normal physiologi c change in pregnancyD iscussed return and ED precaution sFollow up with MFM Health Concerns Section Related Observation LastModified by Organization Detai ls LastModified Time None Recorded Concern Status LastModified by Organization Details LastModified Time None Recorded Advance Directives Directive None Recorded Payers Encounter Date Sequence Insurance Name Policy Number Policy Delgado Covered Member ID Delgado Member ID Guarantor Name 08/09/2023 1 [facility] (MEDICAID REPLACEMENT - HMO) [id number] August Latrell [id number] September Latrell 08/17/2023 1 [facility] (MEDICAID REPLACEMENT - HMO) [id number] August Latrell [id number] September Latrell Notes Date Note Type Note Provider Name and Address Organization Details Recorded Time 08/09/2023 text/html Matthew is a 28 y/o presenting @ 11 weeks dated by US/LMP (05/24/23) with FLORIAN 02-28-2024; here for initial OB exam. Preg complicated by: history of twin miscarriage, subchronic hemorrhage, possible preeclampsia. She has no significant concerns today and reports normal antepartum symptoms of . She endorses good movement. She denies vaginal bleeding, vaginal discharge, loss of fluid, or contractions. 7x, 2 abortions, 3 live , 1 , 1 miscarriage(twins 2013 at 14 weeks)First 2 pregnancies were uncomplicatedlast 5 years ago complicated by subchronic Hemorrhage, high blood pressure and possible preeclampsia. Last pap smear unknown date or resultLMP 05/24/23Tried several controls and dislike them all. Safia Almendarez MD Attn: Accounting,[address] [place], [address], [facility] 08/29/2023 10:27:43 08/17/2023 text/html August is a 28 y/o presenting @ 12.1 dated by 1st trimester US with correlating LMP; here for palpitations. She denies vaginal bleeding, vaginal discharge, loss of fluid, or contractions. She has not had a visit to ED or Triage since last appointment. pt. states when she us up for more than 20-30 minutes she has been having heart palpitations. has been having faint headaches and has been feeling light headed. No chest pain or SOB. has had decreased symptoms such as morning sickness and fatigue. her appetite has gone down a little bit Safia Almendarez MD Attn: Accounting,[address] [place], [address], [facility] 08/24/2023 12:36:17 OBGyn Episode Ob Episode Information Episode Created Date Number of Fetuses Patient Bloodtype Patient rh Status Prepregnancy Weight lbs Domestic Partner Domestic Partner Phone Father Name Civil Engineering Technician Status 06/28/20 1 O Positive CLOSED Fetus Data First Name Last Name Admitted to NICU Weight (g) Sex Living Outcome Pediatric Complications Fetus ID Race Codes Race Delivery Type [id number] Problems Problem Notes Plans to breast feed. 1 cat in home. Education done. No to epidural. If boy, yes to circ. PPBC BTL. Problem Name Start Date End Date Resolution Snomed Code Not e Palpitations 08/17/2023 [id number] Monochorionic diamniotic twi n 08/17/2023 [id number] Past history of pre-eclampsia 08/17/2023 [id number] Past history of premature delivery 08/17/2023 [id number] Florian Calculation Initial Florian Date Initial Exam Date Initial Exam Provider Initial Ultrasound Date Last Menstrual Period Date Ultra Sound Weeks Gestation 02/28/2024 08/09/2023 [email or web address] 08/09/2023 05/24/2023 10 Eighteen To Twenty Week Florian Update Ultra Sound Date Fundal Height At Umbil Quickening Date Ultra Sound Latest Weeks Gestation Final Florian Confirmed By Final Florian Confirmed Date Final Florian Date Ultra Sound Latest Days Gestation 0 02/28/20 24 0 Pre-brittny Flowsheet Flowsheet Date 08/09/2023 Rivas Score Blood Edema Fundus Height Fundus Units Glucose Ketones Leukocytes Nitrite Labor Signs Protein Cervic Dilation Cervic Effacement Cervic Station neg none none negative neg Type Weight in lbs Pre/Post Dialysis Refused Weight 124.556752168821 BP Diastolic BP Location Tested BP Systolic BP Type 86 120 sitting Fetus Heart Rate Present A 171 Present Fetus Movement Comments August is a 28 y/o presenting @ 11 weeks dated by US/LMP (05/24/23) with FLORIAN 02-28-2024; here for initial OB exam. Preg complicated by: history of twin miscarriage, subchronic hemorrhage, possible preeclampsia. She has no significant concerns today and reports normal antepartum symptoms of . She endorses good movement. She denies vaginal bleeding, vaginal discharge, loss of fluid, or contractions. - anticipatory guidance provided- continue PNV- follow-up in 4 week Flowsheet Date 08/17/2023 Rivas Score Blood Edema Fundus Height Fundus Units Glucose Ketones Leukocytes Nitrite Labor Signs Protein Cervic Dilation Cervic Effacement Cervic Station neg none none negative trace Type Weight in lbs Pre/Post Dialysis Refused With clothes 126.381363199083 BP Diastolic BP Location Tested BP Systolic BP Type 69 110 sitting 79 117 sitting 82 114 sitting Fetus Heart Rate Present A Present Fetus Movement Comments August is a 28y/o presenting @ 12.1 dated by 1st trimester US with correlating LMP; here for palpitations. She denies vaginal bleeding, vaginal discharge, loss of fluid, or contractions. She has not had a visit to ED or Triage since last appointment. Palpitations likely normal physiologic response to . Bedside US performed. Twin A FHR 174 and Twin B FHR 160. Plan for full referral to [facility] given multiple risk factors. Menstrual History Last Menstrual Date Menses Monthly On Bcp Conception Prior Menses Frequency Hcg Plus Date Menarche Onset Age 0905/24/2023 Genetic Screening And Infection History Question Response Note Patient's Age Will Be 35 Yea rs Or Older At Estimated Date of Delivery false Thalassemia (Khmer, Armenian, Mediterranean, Or Background): MCV < 80 false Neural Tube Defect (Meningom yelocele, Spina Bifida, Or Anencephaly) false Congenital Heart Defect false Down Syndrome false Hilton-Sachs (eg, Jain, Cajun , Welsh-Hampton) false Manju Disease false Sickle Cell Disease Or Trait () false Hemophilia Or Other Blood Disorders false Muscular Dystrophy false Cystic Fibrosis false [facility] Chorea false Mental Retardation/Autism false If Yes, Was Person Tested For Fragile X? false Other Inherited Genetic Or C hromosomal Disorder false Maternal Metabolic Disorder (eg, Type 1 Diabetes, PKU) false Patient Or Baby's Father Had A Child With Defects Not Listed Above false Recurrent Loss, Or A Stillbirth true 2012 miscarriage twins at 15 weeks. Medications (including Suppl ements, Vitamins, Herbs, OTC Drugs), Illicit/Recreational Drugs, Alcohol true PNV, marijuana If Yes, Agent(s) And Strength/Dosage false Any Other Genetic History false Live With Someone With TB Or Exposed To TB false Patient Or Partner Has Histo ry Of Genital Herpes false Rash Or Viral Illness Since Last Menstrual Period false History Of STD, Gonorrhea, C hlamydia, HPV, Syphilis false Other Infection History false History of HIV false History of Hepatitis false Prior GBS-infected child false Delivery Information Delivery Date Delivery Type Labor Anesthesia Weeks Gestation Incision Type Labor Labor Length Hrs Delivered By Post Complications Tubal Sterilization Discharge Date Comments Discharge Information Feeding Method Contraceptive Method Maternal HG B and HCT Levels
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
--- OUTSIDE RECORDS SUMMARY | 2024-12-17 20:41 | XMS_ITS | Continuity of Care Document ---
Author Organization [employer] [facility] Address [address] [place] [phone] Phone Care Team Providers Care Floor Steward/Stewardess Name Role Phone Himanshu Ferris MD Unavailable [...] Providers Copied on Encounter OFFICE/OUTPA TIENT VISIT, [facility], [address] [place] [address], [id number], tel:[phone] [place] SORE THROAT BODY ACHES (chief complaint) Contact With And (suspected) Exposure To COVID-19Acut e pharyngitis, unspecifiedA cute upper respiratory infection, unspecified 1 Barrington Downs. [address] [place] [address], [facility], . tel:[phone] OFFICE/OUTPA TIENT VISIT, [facility], [address] [place] [address], [facility], tel:[phone] [place] NECK PAIN (chief complaint) Neck pain 8 Stendeback Bharati. [address] [place] [address], [facility], . tel:[phone] OFFICE/OUTPA TIENT VISIT, [facility], [address] [place] [address], [facility], tel:[phone] [place] Sore throat (chief complaint) Bronchitis 7 Keysha Priscilla. [address] [place] [address], [facility], . tel:[phone] OFFICE/OUTPA TIENT VISIT, [facility], [address] [place] [address], [facility], tel:[phone] [place] NECK PAIN (chief complaint) Neck pain 7 Michelle Melanie. [address], [place], [facility], . [phone] OFFICE/OUTPA TIENT VISIT, [facility], [address] [place] [address], [facility], [place] tel:[phone] [place] sore throat (chief complaint)cou gh (chief complaint)ear complaints (chief complaint) URI (upper respiratory infection) 3 Jeremy Retana. [address] [place] [address], [place]. tel:[phone] [facility], [address] [place] [address], [facility], tel:[phone] [facility] stomach pain (chief complaint) Urinary tract infection, site not specified 2 No Information [facility], [address] [place] [address], [facility], [place] tel:[phone] [facility] depo injection (chief complaint) No Information 2 No Information [facility], [address] [place] [address], [facility], [place] tel:[phone] [facility] restart birthcontrol (chief complaint) General counseling on initiation of other contraceptiv e measures 1 No Information [facility], [address] [place] [address], [facility], [place] tel:[phone] [facility] check up (chief complaint)ear pain (chief complaint) Acute suppurative otitis mediaPalpita tionsDepress dean disorder, not elsewhere classified 1 No Information [facility], [address] [place] [address], [facility], tel:[phone] [facility] Depo Shot (chief complaint) Contraceptiv e surveillance , unspecified 1 No Information [facility], [address] [place] [address], [facility], [place] tel:[phone] [facility] talk about med. (chief complaint) Depressive disorder, not elsewhere classified 1 No Information [facility], [address] [place] [address], [facility], [place] tel:[phone] [facility] congested, depression (chief complaint) Depressive disorder, not elsewhere classified 1 No Information [facility], [address] [place] [address], [facility], [place] tel:[phone] [facility] Depo injection (chief complaint) No Information 1 No Information OFFICE/OUTPA TIENT VISIT, [facility], [address] [place] [address], [facility], [place] tel:[phone] [facility] start control (chief complaint) Depressive disorder, not elsewhere classifiedGe neral counseling on initiation of other contraceptiv e measures 1 No Information OFFICE/OUTPA TIENT VISIT, [facility], [address] [place] [address], [address], tel:[phone] [facility] bladder inf (chief complaint) Depressive disorder, not elsewhere classifiedUr inary tract infection, site not specified 0 No Information [facility], [address] [place] [address], [facility], [phone] [facility] CONTROL (chief complaint) Depressive disorder, not elsewhere classifiedGe neralized anxiety disorderCont raceptive surveillance , unspecified 9 No Information [facility], [address] [place] [address], [facility], tel:[phone] [facility] Depressive disorder, not elsewhere classified 9 No Information [facility], [address] [place] [address], [facility], tel:[phone] [facility] STOMACH PAINS (chief complaint) No Information 9 [...] depression Payers Payer name Insurance type Covered constitution party ID Authoriza tion(s) No Information Social [...] No Information Instructions Date Instruction Additional Infor ilas Educated that antibi otics are not prescribed [...] that hurt . Related to Neck pain Have xray completed as soon as possible. Related to Neck pain Call office with any acute jose alfredo rns. Related to Neck pain Assessments Type Assessment Date assessment Contact With And (suspected) Exp osure To COVID-19 assessment Acute pharyngitis, unspecified D assessment Acute upper respiratory infectio n, unspecified Mental Status Date Cognitive Assessment Orientation - [place] ed to time, place, person, situation. Patient Care Teams Name Effective Dates (start - stop) Status Members No Information
--- NOTE | 2024-12-17 20:45 | ECG_ITS ---
Test Date: 2024-12-17 20:56:54 Measurements Intervals [place] Rate: 80 P: 45 PA: 146 QRS: 15 QRSD: 101 T: 46 QT: 382 QTc: 442 Interpretive Statements SINUS RHYTHM WITH SINUS ARRHYTHMIA VOLTAGE CRITERIA FOR LVH BORDERLINE ECG No previous ECG available for comparison Electronically Signed On 12-18-2024 06:31:00 CDT by Chip Rothman D.O.
--- NOTE | 2024-12-17 20:45 | ED.GENADULT ---
HPI - General Adult General Chief complaint: Unspecified Stated complaint: unspecified Time Seen by Provider: 12/17/24 20:30 Source: patient Mode of arrival: ambulatory Limitations: no limitations History of Present Illness HPI narrative: 29 YEARS OLD WHITE FEMALE WITH HISTORY OF ANXIETY AND PANIC ATTACK AND DEPRESSION DROVE HERSELF TO THE EMERGENCY ROOM COMPLAINING OF INTERMITTENT NUMBNESS AND TINGLING OF THE LEFT SHOULDER PLATE STARTED 14 MONTHS AGO. CURRENTLY HAVE NO TINGLING OR NUMBNESS. PATIENT ALSO REPORTED FEELING OF, LIKE DRUNK, POOR CONCENTRATION, INTERMITTENT EPISODE OF LOSS OF BALANCE AND SPLIT OF 2ND. PATIENT BEEN SEEN BY CHIROPRACTOR LATELY WITHOUT ANY IMPROVEMENT, PATIENT REPORTS TONS OF STRESS LATELY SHE IS TAKING CARE OF HIS CEREBRAL PALSY BABY, 1 OF HER KIDS RECENTLY. PATIENT DOES NOT TAKE ANY MEDICINE AT HOME, SMOKES MARIJUANA DAILY Related Data Allergies Allergy/AdvReac Type Severity Reaction Status Date / Time pseudoephedrine (From Allergy Palpitation Verified 12/17/24 20:38 Sudafed) s Review of Systems Review of Systems: All systems reviewed & are unremarkable except as noted in HPI and below PMFSH Past Medical History Medical History Patient denies medical problems Exam Narrative: GENERAL APPEARANCE: WELL-DEVELOPED, WELL-NOURISHED, ANXIOUS SKIN: NORMAL COLOR HEAD: NORMOCEPHALIC, NONTRAUMATIC EYES: CLEAR CONJUNCTIVA ENT: OROPHARYNX NORMAL, EARS NORMAL, NOSE NORMAL NECK: SUPPLE, NONTENDER CHEST AND RESPIRATORY: AIRWAY PATENT, NO RESPIRATORY DISTRESS, NO ACCESSORY MUSCLE USE HEART: REGULAR RATE/RHYTHM ABDOMEN: SOFT, NONTENDER, NO ORGANOMEGALY, QUIET BOWEL SOUNDS VASCULAR: NORMAL PERIPHERAL PULSES, NORMAL CAPILLARY REFILL. 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 IS NORMAL TESTED, NO GROSS MOTOR DEFICIT Course Vital Signs Vital signs: Vital Signs Temperature 36.6 C 12/17/24 20:27 Pulse Rate 99 12/17/24 20:27 Respiratory Rate 18 12/17/24 20:27 Blood Pressure 143/100 H 12/17/24 20:27 Pulse Oximetry 100 12/17/24 20:27 Oxygen Delivery Room Air 12/17/24 20:27 Temperature 36.6 C 12/17/24 20:27 Pulse Rate 99 12/17/24 20:27 Respiratory Rate 18 12/17/24 20:27 Blood Pressure 143/100 H 12/17/24 20:27 Pulse Oximetry 100 12/17/24 20:27 Oxygen Delivery Room Air 12/17/24 20:27 Medical Decision Making MDM Narrative Medical decision making narrative: PATIENT CAME WITH MULTIPLE SYMPTOMS ABOVE VITAL SIGNS SHOWING BLOOD PRESSURE 143/100 OTHERWISE INSIGNIFICANT PHYSICAL EXAMINATION SHOWING RESTLESS ANXIOUS PATIENT OTHERWISE INSIGNIFICANT DIFFERENTIAL DIAGNOSIS INCLUDE ANXIETY LIKE SYMPTOMS, ELECTROLYTE IMBALANCE, URINARY TRACT INFECTION, DEHYDRATION, INTRACRANIAL ABNORMALITY. BLOOD WORKUP TODAY INCLUDES CBC, CMP, SHOWED NO SIGNIFICANT ABNORMALITY URINALYSIS SHOWED NO EVIDENCE OF INFECTION URINE DRUG SCREEN SHOWED POSITIVE FOR MARIJUANA CHEST X-RAY SHOWED NO ACUTE ABNORMALITIES CT HEAD WITHOUT CONTRAST SHOWED NO ACUTE ABNORMALITIES DIAGNOSIS: ANXIETY LIKE SYMPTOMS, PARESTHESIA THE PT WAS DISCHARGED TO HOME.THE PT,S CONDITION UPON DISCHARGE WAS FAIR,EDUCATION WAS PROVIDED TO THE PT IN REFERENCE TO THE FINAL IMPRESSION,DISCHARGE STUDY RESULTS,TREATMENT,PROGNOSIS AND NEED FOR FOLLOW UP . Differential Diagnosis Differential Diagnosis: ABOVE Vital Signs Vital Signs: Vital Signs Temperature 36.6 C 12/17/24 20:27 Pulse Rate 99 12/17/24 20:27 Respiratory Rate 18 12/17/24 20:27 Blood Pressure 143/100 H 12/17/24 20:27 Pulse Oximetry 100 12/17/24 20:27 Oxygen Delivery Room Air 12/17/24 20:27 Temperature 36.6 C 12/17/24 20:27 Pulse Rate 99 12/17/24 20:27 Respiratory Rate 18 12/17/24 20:27 Blood Pressure 143/100 H 12/17/24 20:27 Pulse Oximetry 100 12/17/24 20:27 Oxygen Delivery Room Air 12/17/24 20:27 Lab Data 12/17/24 21:01 12/17/24 21:01 Labs: Lab Results 12/17/24 12/17/24 Range/Units 21:01 21:07 WBC 7.3 (4.8-10.8) K/mm3 RBC 4.30 (4.20-5.40) M/mm3 Hgb 13.2 (12.0-15.0) g/dL Hct 39.8 (35.0-49.0) % MCV 92.6 (78.0-102.0) fL MCH 30.7 (27.0-31.0) pg MCHC 33.2 (32-36) g/dL RDW 12.9 (11.6-14.4) % Plt Count 251 (150-420) K/mm3 MPV 10.2 (9.2-11.8) fl Immature Gran % (Auto) 0.1 H (0.0-0.0) % Neut % (Auto) 57.4 (50.0-70.0) % Lymph % (Auto) 32.7 (18.0-42.0) % [place] % (Auto) 7.0 (2.0-11.0) % Eos % (Auto) 2.5 (1.0-6.0) % Baso % (Auto) 0.3 (0.0-1.0) % Lymph # (Auto) 2.38 (1.10-4.50) K/mm3 [place] # (Auto) 0.51 (0.10-0.90) K/mm3 Eos # (Auto) 0.18 (0.02-0.50) K/mm3 Baso # (Auto) 0.02 (0.00-0.10) K/mm3 Abs Immat Gran (auto) 0.01 H (0.00-0.00) K/mm3 Absolute Neuts (auto) 4.18 (1.70-7.20) K/mm3 Absolute Nucleated RBC 0.00 (0.00-0.00) K/mm3 Nucleated RBC % 0.0 (0-0.0) % Sodium 141 (136-145) mmol/L Potassium 3.6 (3.5-5.1) mmol/L Chloride 105 (98-108) mmol/L Carbon Dioxide 28 (21-32) mmol/L Anion Gap 8 (4-12) mmol/L BUN 11 (7-18) mg/dL Creatinine 1.00 (0.55-1.02) mg/dL Estim Creat Clear Calc 62 ml/min Estimated GFR > 60 (59 - ) Glucose 127 H (70-99) mg/dL Calculated Osmolality 293 (285-295) mOsm/kg Calcium 9.4 (8.5-10.1) mg/dL Total Bilirubin 0.4 (0.00-1.00) mg/dL AST 13 L (15-37) U/L ALT 23 (14-59) U/L Alkaline Phosphatase 106 (46-116) U/L Total Protein 7.6 (6.4-8.2) g/dL Albumin 4.2 (3.4-5.0) g/dL TSH 1.67 (0.36-3.74) uIU/mL Urine Color Light yellow (Yellow) Urine Appearance Clear (Clear) Urine pH 6.5 (5.0-8.0) Ur Specific [place] 1.015 (1.010-1.020) Urine Protein Negative (Negative) Urine Glucose (UA) Negative (Negative) Urine Ketones Negative (Negative) Ur Blood (Man) Negative (Negative) Urine Nitrate Negative (Negative) Urine Bilirubin Negative (Negative) Urine Urobilinogen 1.0 (0.2-1.0) mg/dL Leukocyte Esterase Rfl Negative (Negative) VITOR/UL Urine Test Negative Urine Opiates Screen Negative (Negative) Urine Methadone Screen Negative (Negative) Ur Barbiturates Screen Negative (Negative) Ur Phencyclidine Scrn Negative (Negative) Ur Amphetamine Screen Negative (Negative) U Benzodiazepines Scrn Negative (Negative) Urine Cocaine Screen Negative (Negative) U Cannabinoids Screen Positive A (Negative) Imaging Data Attestation: I personally reviewed and interpreted this imaging study as follows: ECG Data EKG #1: Attestation: I personally reviewed and interpreted this ECG as follows: ECG completion date: 12/17/24 Interpretation: NORMAL SINUS RHYTHM AT 80 BEATS PER MINUTE, MODERATE VOLTAGE CRITERIA FOR LVH, BORDERLINE EKG Critical Care Time Critical Care Time Critical Care Time: No Discharge Plan Discharge Clinical Impression: Anxiety, Paresthesia Patient Disposition: Home Condition: Stable Patient Language: Martiniquais Follow-up/Referrals: UNKNOWN,DOCTOR [Non-Staff] -
[2024-12-17 21:04] LABS: Basophils Absolute Auto 0.02 K/mm3 (0.00-0.10); Basophils Percent Auto 0.3 % (0.0-1.0); Eosinophils Absolute Auto 0.18 K/mm3 (0.02-0.50); Eosinophils Percent Auto 2.5 % (1.0-6.0); Hematocrit 39.8 % (35.0-49.0); Hemoglobin 13.2 g/dL (12.0-15.0); Immature Granulocyte Absolute 0.01 K/mm3 (0.00-0.00); Immature Granulocyte Percent A 0.1 % (0.0-0.0); Lymphocytes Absolute Auto 2.38 K/mm3 (1.10-4.50); Lymphocytes Percent Auto 32.7 % (18.0-42.0); Mean Corpuscular HGB Conc 33.2 g/dL (32-36); Mean Corpuscular Hemoglobin 30.7 pg (27.0-31.0); Mean Corpuscular Volume 92.6 fL (78.0-102.0); Mean Platelet Volume 10.2 fl (9.2-11.8); Monocytes Absolute Auto 0.51 K/mm3 (0.10-0.90); Neutrophils Absolute Auto 4.18 K/mm3 (1.70-7.20); Neutrophils Percent Auto 57.4 % (50.0-70.0); Platelet Count Result 251 K/mm3 (150-420); Red Cell Distribution Width 12.9 % (11.6-14.4); White Blood Count 7.3 K/mm3 (4.8-10.8)
[2024-12-17 21:13] LABS: Add Urine Microscopic? NO; Appearance Urine Clear (Clear); Bilirubin Urine Negative (Negative); Blood Urine Negative (Negative); Color Urine Light Yellow (Yellow); Glucose Urine UA Negative (Negative); Ketones Urine Negative (Negative); Leukocyte Esterase Ur Negative LEU/UL (Negative); Nitrate Urine Negative (Negative); Protein Urine Negative (Negative); Specific Grav Ur 1.015 (1.010-1.020); pH Urine 6.5 (5.0-8.0)
[2024-12-17 21:16] LABS: Pregnancy On Board Control Positive; Urine Pregnancy Test Negative
[2024-12-17 21:20] LABS: Amphetamine Screen Urine Negative (Negative); Barbiturate Screen Urine Negative (Negative); Benzodiazepines Screen Urine Negative (Negative); Cannabinoid Screen Urine Positive (Negative); Cocaine Screen Urine Negative (Negative); Methadone Screen Urine Negative (Negative); Opiate Screen Urine Negative (Negative); Phencyclidine Screen Urine Negative (Negative)
[2024-12-17 21:28] LABS: Alanine Aminotransferase 23 U/L (14-59); Albumin Level 4.2 g/dL (3.4-5.0); Alkaline Phosphatase 106 U/L (46-116); Anion Gap 8 mmol/L (4-12); Aspartate Amino Transferase 13 U/L (15-37); Bilirubin,Total 0.4 mg/dL (0.00-1.00); Blood Urea Nitrogen 11 mg/dL (7-18); Calcium 9.4 mg/dL (8.5-10.1); Carbon Dioxide 28 mmol/L (21-32); Chloride 105 mmol/L (98-108); Estimated CRCL calculation 62 ml/min; Estimated Glomerular Filt Rate > 60; Glucose 127 mg/dL (70-99); Osmolality Calculated 293 mOsm/kg (285-295); Potassium 3.6 mmol/L (3.5-5.1); Sodium 141 mmol/L (136-145); Thyroid Stimulating Hormone 1.67 uIU/mL (0.36-3.74); Total Protein 7.6 g/dL (6.4-8.2)
[2024-12-17 22:30] VITALS: BP 140/90; PULSE 85; RESP 16; TEMP 36.4; O2SAT 100
== END 2024-12-17 22:30 | disposition home or self-care (01) ==
PROVIDERS: Emergency Provider Emergency Medicine; PCP Internal Medicine
DX: F41.9 Anxiety disorder, unspecified (principal); R20.2 Paresthesia of skin
CPT/HCPCS: 36415; 70450; 71045; 80053; 80307; 81003; 81025; 84443; 85025; 93005; 99284

== ENCOUNTER 2025-04-11 11:01 | Outpatient (CLI) | payer OTHER, SELFPAY ==
--- NOTE | ~2025-04-11 | XR_ITS ---
Thoracic spine: Clinical Indication: Back pain AP and lateral views were performed. No fracture is seen. There is normal alignment of the vertebrae. The intervertebral disc spaces appe ar normal. Paravertebral soft tissues appear normal. Impression: No significant abnormalities noted. Reviewed, dictated and finalized at [facility]. Impression: No significant abnormalities noted.
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
--- OUTSIDE RECORDS SUMMARY | 2025-04-11 11:13 | XMS_ITS | Referral Summary ---
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
--- OUTSIDE RECORDS SUMMARY | 2025-04-11 11:13 | XMS_ITS | Clinical Summary ---
Author Organization [facility] Address [address] [place] [address] Care Team Providers Care Floor Waxer Name Role Phone No, Provider Primary Care [...] CDT Oxygen Saturation 100% 09/16/2023 4:47 PM JUDGE Inhaled Oxygen Concentration - - Weight 61.5 [...] 06/03/1998, Additional history exists Influenza Vaccine (#1) 2025 06/28/2008 Hepatitis B Screening Completed 03/16/1994 , 1993, 1993 Pneumococcal vaccine <65 Aged Out No longer eligible based on patient's age to complete this topic Insurance [facility] Care Teams Floor Waxer Relationship Specialty Start Date End Date No, Provider PCP - General 07/16/22
[2025-04-11 11:26] LABS: Add Urine Microscopic? NO; Appearance Urine Clear (Clear); Glucose Urine UA Negative (Negative); Leukocyte Esterase Ur Negative (Negative); Nitrate Urine Negative (Negative); Specific Grav Ur 1.025 (1.010-1.020)
[2025-04-11 11:27] LABS: Hematocrit 39.9 % (35.0-49.0); Hemoglobin 12.9 g/dL (12.0-15.0); Immature Granulocyte Percent A 0.4 % (0.0-0.0); Lymphocytes Absolute Auto 1.69 K/mm3 (1.10-4.50); Mean Corpuscular HGB Conc 32.3 g/dL (32-36); Mean Corpuscular Hemoglobin 29.6 pg (27.0-31.0); Mean Corpuscular Volume 91.5 fL (78.0-102.0); Nucleated Red Blood Cells Absolute Auto 0.00 K/mm3 (0.00-0.00); Nucleated Red Blood Cells Perc 0.0 % (0-0.0); Platelet Count Result 237 K/mm3 (150-420); Red Blood Count 4.36 M/mm3 (4.20-5.40); White Blood Count 5.5 K/mm3 (4.8-10.8)
[2025-04-11 12:17] LABS: Alanine Aminotransferase 14 U/L (6-35); Albumin Level 4.7 g/dL (3.5-5.1); Alkaline Phosphatase 86 U/L (38-126); Amylase 63 U/L (30-110); Anion Gap 6 mmol/L (4-12); Aspartate Amino Transferase 22 U/L (14-36); Bilirubin,Total 0.5 mg/dL (0.2-1.3); Blood Urea Nitrogen 11 mg/dL (7-17); Calcium 9.1 mg/dL (8.4-10.2); Carbon Dioxide 26 mmol/L (22-30); Chloride 109 mmol/L (98-107); Estimated Glomerular Filt Rate > 60; Glucose 98 mg/dL (65-110); Lipase 63 U/L (23-300); Osmolality Calculated 291 mOsm/kg (285-295); Potassium 4.7 mmol/L (3.4-5.0); Sodium 141 mmol/L (137-145); Total Protein 7.2 g/dL (6.3-8.2)
[2025-04-11 12:47] LABS: Thyroid Stimulating Hormone 0.651 uIU/mL (0.465-4.680)
== END 2025-04-11 11:02 | disposition home or self-care (01) ==
LOC: CHSLAB 11:05
PROVIDERS: PCP Family Medicine; Visit Provider Family Medicine
DX: R10.9 Unspecified abdominal pain (principal); M54.9 Dorsalgia, unspecified
CPT/HCPCS: 36415; 72072; 80053; 81003; 82150; 83690; 84443; 85025

== ENCOUNTER 2025-04-29 23:00 | Emergency (ER) | payer OTHER, SELFPAY ==
--- NOTE | ~2025-04-29 | XR_ITS ---
Clinical Indication: Chest pain PA and lateral views of the chest: Comparison: 12/17/2024 Findings: The lungs are clear, without evidence of focal consolidation or pleural effusion. Cardiomediastinal silhouette is within normal limits. Bones and soft tissues are unremarkable. Impression: Normal chest. Reviewed, dictated and finalized at location . Impression: Normal chest.
[2025-04-29 23:00] VITALS: O2SAT 100
--- NOTE | 2025-04-29 23:00 | ECG_ITS ---
Test Date: 2025-04-29 23:02:18 Measurements Intervals [place] Rate: 92 P: 52 GA: 137 QRS: 19 QRSD: 93 T: 59 QT: 341 QTc: 422 Interpretive Statements SINUS RHYTHM VOLTAGE CRITERIA FOR LVH BORDERLINE ECG Compared to ECG 12/17/2024 20:56:54 NO SIGNIFICANT CHANGE Electronically Signed On 04-30-2025 06:19:44 CDT by Chip Rothman D.O.
--- OUTSIDE RECORDS SUMMARY | 2025-04-29 23:02 | XMS_ITS | Clinical Summary ---
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 Inhaled Oxygen Concentration - - Weight 61.5 kg (135 lb 9.3 oz) 11/21/2023 4:54 P M CDT Height 154.9 cm (5' 1) 11/21/2023 4:54 PM CDT Body Mass Index 25.62 11/21/2023 4:54 PM CDT Plan of Treatment Health Maintenance Due Date Last Done Comments Cervical Cancer Screening 1993 Depression Screening 1993 Hepatitis C Screening 1993 Varicella Vaccines (1 of 2 - 13+ 2-dose series) 2006 HPV Vaccines (2 - 3-dose series) 07/26/2008 06/28/2008 Regular Well Visit/Exam 18-64 2011 DTaP/Tdap/Td Vaccine (8 - Td or Tdap) 06/28/2018 06/28/2008, 06/28/2008, 06/03/1998, Additional history exists Influenza Vaccine (#1) 2025 06/28/2008 Hepatitis B Screening Completed 03/16/1994 , 1993, 1993 Pneumococcal vaccine <65 Aged Out No longer eligible based on patient's age to complete this topic Insurance [facility] [employer] Care Teams Dope Firer Relationship Specialty Start Date End Date No, Provider PCP - General 07/16/22
--- OUTSIDE RECORDS SUMMARY | 2025-04-29 23:02 | XMS_ITS | Clinical Summary ---
Author Organization [facility] Address [address] [place] [address] Care Team Providers Care Professional Engineer Name Role Phone Unavailable Primary Care Provider Unavailabl e Source Comments [facility],non-owned Affiliates and Associated Physician Practices is amultiple site organization consisting of ambulatory clinics and hospital sitesin [place], [place], [place] and [place]. This disclosure is being madepursuant to the Care Everywhere program and may not contain all information available regarding this patient. Last updated 18.[facility] Allergies Active Allergy Reactions Criticality Noted Date [...] swallowing tablets/capsules. Prefers chewable or liquid medications. [employer] form completed. Diapers given. 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 Her initial [...] 4 01/05/2024: Follow-up EPDS score = 6 [facility]: abnormality in 09/30/2023 02/10/2024 Overview (02/03/2024): Images from the original note were not included. [facility] PATIENT--PLEASE CALL [phone] (ex 2) IF TRIAGED OR ADMITTED Care Provider: [facility] consultants involved: Nurse Navigator-Yuri Pozo/Yakelin Puri; MFM-Dr. Celis/Dr. Lima; Pediatric Cardiology-Dr. Lorenzana; Neonatology-Dr. Apodaca; Genetic Counselor-Danielle Chaudhary; 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 Normal echocardiogram on 11/07/2023 Planned surveillance: Routine care; Amniocentesis done 11/22 at [place]; released from [facility] on 01/04 Delivery location: [facility] Delivery mode: Per usual OB indications Desired Delivery GA: IOL scheduled on 02/07/24 follow up per Neonatology: Discussed with parents, infant will need MRI and neurological consultation to evaluate extent of brain abnormality. Transfer to [facility] after depending how baby responded after . Genetics note: genetic diagnostic testing was performed by amniocentesis. Microarray was normal male. Whole exome sequencing was also performed and was not diagnostic. No further genetic testing is indicated at this time, nor are there plans for cord blood genetic testing. Please request Genetics consult postnatally if clinically indicated by calling the Genetics office at [phone] prior to ordering additional genetic studies. 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 Not hard at all 02/07/2024 [facility] of Occupat ional Health - Occupational Stress [...] place to sleep or slept in a group home (including now)? No 02/07/2024 Manteno Depression Scale Answer Date Recorded Manteno Depression Scale Total 2 02/08/2024 The thought of harming myself has occurred to me . 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 Comment:No Laboratory eviden ce of HIV infection. Blood BLOOD SPECIMEN / Unknown Lab Venipuncture / Unknown 12/08/2023 12:26 PM CDT 12/08/2023 12:34 PM CDT Edison Moreno MD LAB - CHEMISTRY ORDERABLES Fi nal Result Performing Organization Address [facility]/State/[facility] Co de Phone Number [facility] [address] [place] [phone], [facility] [phone] from Last 3 Months or Most Recently Relevant to Health Maintenance Insurance MEDICAID - [place] [facility] Advance Directives * Full Code (Latest Code Status on File) Date Activated Date Inactivated Comments 02/07/2024 8:56 AM 02/08/2024 5:53 PM
--- NOTE | 2025-04-29 23:10 | ED.CHESTPAIN ---
HPI - Chest Pain General Chief Complaint: Chest Pain Stated Complaint: chest pain Time Seen by Provider: 04/29/25 23:10 Source: patient and family Mode of arrival: ambulatory Limitations: no limitations History of Present Illness HPI narrative: patient is a 30-year-old female with some left-sided chest pain all day today. She has chest pain frequently and goes to the emergency room with results of anxiety diagnosis. She has very much stressful events at home where her child is chronically ill and on this date 16 years ago her grandmother who raised her has . All in all, the patient feels this is likely anxiety but felt like she needed to get a workup so she can go back to sleep. MD complaint: chest pain Pertinent past history: other ( No CAD with patient or early family history CAD; family members that have with our tech typically are in bad health to include heavy smokers) Onset (ago): day(s) ( 1) Timing of current episode: episodic, monthly and still present Prior episodes: Yes Onset: during rest and during exertion Pain location: substernal and left chest Pain radiation: left arm, neck ( left) and jaw/teeth Severity: moderate Pain scale (0-10): 5 Quality: tightness, heaviness and sharp Relieving factors: nothing Exacerbating factors: stress Context: other ( patient is here with recurrent chest pains and negative workups in the past which she relates to her anxiety; she would like a chest pain workup this evening) Associated symptoms: nausea, dyspnea and sense of impending doom Treatment prior to arrival: none Risk Factors Coronary artery disease risk factors: none Thoracic aortic dissection risk factors: none Related Data On Oral Contraceptives: No Home Medications ?Medication ?Instructions ?Recorded ?Confirmed ?Last Taken ?Type No Home Medications 04/29/25 04/29/25 Unknown History Allergies Allergy/AdvReac Type Severity Reaction Status Date / Time pseudoephedrine (From Allergy Palpitation Verified 04/29/25 23:14 Sudafed) s Review of Systems Review of Systems: All systems reviewed & are unremarkable except as noted in HPI and below Constitutional: Constitutional: Reports no additional constitutional complaints Eyes: Eyes: Reports no additional eye complaints ENT: Reports system reviewed and no additional complaints, except as documented Cardiovascular: Cardiovascular: Reports no additional cardiovascular complaints Respiratory: Respiratory: Reports no additional respiratory complaints Gastrointestinal: Gastrointestinal: Reports no additional gastrointestinal complaints Genitourinary: Genitourinary: Reports no additional female genitourinary complaints Musculoskeletal: Musculoskeletal: Reports no additional musculoskeletal complaints Integumentary/Breasts: Skin/Breast: Reports system reviewed and no additional complaints, except as docu Neurologic: Reports system reviewed and no additional complaints, except as documented Psychiatric: Psychiatric: Reports no additional psychiatric complaints Endocrine: Endocrine: Reports no additional endocrine complaints Hematologic/Lymphatic: Hematologic/Lymphatic: Reports no additional hematologic/lymphatic complaints Allergic/Immunologic: Allergic/Immunologic: Reports no additional allergic/immunologic complaints [facility] Past Medical History Medical History Patient denies medical problems Exam Const: General: healthy appearing and no acute distress Nutritional Appearance: well nourished Orientation/consciousness: patient oriented x3 Limitations: no limitations Other: patient claims lots of stress going on today and recently in her life HENMT: Head: normal to inspection Ears: external ears normal Face/Nose/Sinus: Normal external nose present Eyes: Conjunctivae: conjunctivae normal Pupils: Equal, round and reactive pupils present EOM: EOMs intact bilaterally Neck: Neck: normal visual inspection Chest: Chest palpation & inspection: normal inspection of the chest Resp: Effort & Inspection: normal respiratory effort and not labored Auscultation: clear to auscultation bilaterally and no crackles GI: Inspection: non-distended GI Palp: Yes Soft to palpation and No Tenderness to palpation present (GI) Auscultation: normal bowel sounds : General: Yes bladder normal to palpation Back/Spine/Pelvis: Back: no CVA tenderness Skin: General skin exam: normal color Rashes: no rashes Wounds: no wounds Neuro: General: patient oriented x3, moves all extremities, no meningeal signs and no focal motor deficits Cranial nerves: Yes Nystagmus not present Speech: normal speech Gait exam (Neuro): Normal gait present Extrem: General: normal to inspection Psych: Mental Status: mental status grossly normal Affect: normal affect Attitude: cooperative Course Vital Signs Vital signs: Vital Signs Pulse Oximetry 100 04/29/25 23:00 Oxygen Delivery Room Air 04/29/25 23:00 Temperature 36.6 C 04/29/25 23:11 Pulse Rate 108 H 04/29/25 23:11 Respiratory Rate 16 04/29/25 23:11 Blood Pressure 146/98 H 04/29/25 23:11 Pulse Oximetry 100 04/29/25 23:11 Oxygen Delivery Room Air 04/29/25 23:11 MDM - Chest Pain MDM Narrative Medical decision making narrative: patient is a 30-year-old female with left-sided chest pain and radiation and nausea associated with this chest pain. We will do a cardiac workup at this time. Lab Data Attestation: I reviewed the patient's lab results. 04/29/25 23:29 04/29/25 23:29 Labs: Lab Results 04/29/25 04/29/25 Range/Units 23:29 23:35 WBC 9.6 (4.8-10.8) K/mm3 RBC 4.22 (4.20-5.40) M/mm3 Hgb 12.6 (12.0-15.0) g/dL Hct 37.7 (35.0-49.0) % MCV 89.3 (78.0-102.0) fL MCH 29.9 (27.0-31.0) pg MCHC 33.4 (32-36) g/dL RDW 13.1 (11.6-14.4) % Plt Count 252 (150-420) K/mm3 MPV 10.4 (9.2-11.8) fl Immature Gran % (Auto) 0.3 H (0.0-0.0) % Neut % (Auto) 53.0 (50.0-70.0) % Lymph % (Auto) 37.1 (18.0-42.0) % [place] % (Auto) 6.9 (2.0-11.0) % Eos % (Auto) 2.3 (1.0-6.0) % Baso % (Auto) 0.4 (0.0-1.0) % Lymph # (Auto) 3.55 (1.10-4.50) K/mm3 [place] # (Auto) 0.66 (0.10-0.90) K/mm3 Eos # (Auto) 0.22 (0.02-0.50) K/mm3 Baso # (Auto) 0.04 (0.00-0.10) K/mm3 Abs Immat Gran (auto) 0.03 H (0.00-0.00) K/mm3 Absolute Neuts (auto) 5.07 (1.70-7.20) K/mm3 Absolute Nucleated RBC 0.00 (0.00-0.00) K/mm3 Nucleated RBC % 0.0 (0-0.0) % D-Dimer 0.37 (0.19-0.50) mg/L Sodium 139 (137-145) mmol/L Potassium 3.2 L (3.4-5.0) mmol/L Chloride 106 (98-107) mmol/L Carbon Dioxide 23 (22-30) mmol/L Anion Gap 10 (4-12) mmol/L BUN 12 (7-17) mg/dL Creatinine 0.65 L (0.7-1.0) mg/dL Estim Creat Clear Calc 91 ml/min Estimated GFR > 60 (59 - ) Glucose 111 H (65-110) mg/dL Calculated Osmolality 288 (285-295) mOsm/kg Calcium 10.2 (8.4-10.2) mg/dL Total Bilirubin 0.4 (0.2-1.3) mg/dL AST 22 (14-36) U/L ALT 16 (6-35) U/L Alkaline Phosphatase 89 (38-126) U/L Troponin I < 0.012 (0.000-0.034) ng/mL NT-Pro-B Natriuret Pep < 20 (19.9-100) pg/mL Total Protein 7.5 (6.3-8.2) g/dL Albumin 4.7 (3.5-5.1) g/dL Lipase 79 (23-300) U/L Urine Color Light yellow (Yellow) Urine Appearance Clear (Clear) Urine pH 7.0 (5.0-8.0) Ur Specific Lotus 1.010 (1.010-1.020) Urine Protein Negative (Negative) Urine Glucose (UA) Negative (Negative) Urine Ketones Negative (Negative) Ur Blood (Man) Negative (Negative) Urine Nitrate Negative (Negative) Urine Bilirubin Negative (Negative) Urine Urobilinogen 0.2 (0.2-1.0) mg/dL Leukocyte Esterase Rfl Negative (Negative) VITOR/UL Urine Test Negative Imaging Data Attestation: I personally reviewed and interpreted this imaging study as follows: My impression: Chest x-ray pending final result is negative for acute process ECG Data EKG #1: Attestation: I personally reviewed and interpreted this ECG as follows: ECG completion date: 04/30/25 EKG Interpretation: normal rate, junctional, no ectopy, non-specific ST changes, normal QRS, normal QT and NL axis Discharge Plan Discharge Clinical Impression: Atypical chest pain Patient Disposition: Home Condition: Stable Instructions: Chest Pain (ED) Additional Instructions: please follow-up with the primary doctor in the next week. Further outpatient cardiac testing can be done with your primary doctor or casting house laborer. Patient Language: Amharic Prescriptions: No Action No Home Medications Follow-up/Referrals: Sergo Celeste MD [Primary Care Provider] - Time of Disposition: 00:55
[2025-04-29 23:11] VITALS: BP 146/98; PULSE 108; RESP 16; TEMP 36.6; O2SAT 100
[2025-04-29 23:36] LABS: Hematocrit 37.7 % (35.0-49.0); Hemoglobin 12.6 g/dL (12.0-15.0); Immature Granulocyte Percent A 0.3 % (0.0-0.0); Lymphocytes Absolute Auto 3.55 K/mm3 (1.10-4.50); Mean Corpuscular HGB Conc 33.4 g/dL (32-36); Mean Corpuscular Hemoglobin 29.9 pg (27.0-31.0); Mean Corpuscular Volume 89.3 fL (78.0-102.0); Nucleated Red Blood Cells Absolute Auto 0.00 K/mm3 (0.00-0.00); Nucleated Red Blood Cells Perc 0.0 % (0-0.0); Platelet Count Result 252 K/mm3 (150-420); Red Blood Count 4.22 M/mm3 (4.20-5.40); White Blood Count 9.6 K/mm3 (4.8-10.8)
[2025-04-29 23:39] VITALS: BP 138/82; PULSE 89; RESP 12; O2SAT 99
[2025-04-29 23:46] VITALS: BP 124/89; PULSE 92; RESP 14; O2SAT 99
[2025-04-29 23:49] LABS: Alanine Aminotransferase 16 U/L (6-35); Albumin Level 4.7 g/dL (3.5-5.1); Alkaline Phosphatase 89 U/L (38-126); Anion Gap 10 mmol/L (4-12); Aspartate Amino Transferase 22 U/L (14-36); Bilirubin,Total 0.4 mg/dL (0.2-1.3); Blood Urea Nitrogen 12 mg/dL (7-17); Calcium 10.2 mg/dL (8.4-10.2); Carbon Dioxide 23 mmol/L (22-30); Chloride 106 mmol/L (98-107); Estimated CRCL calculation 91 ml/min; Estimated Glomerular Filt Rate > 60; Glucose 111 mg/dL (65-110); Osmolality Calculated 288 mOsm/kg (285-295); Potassium 3.2 mmol/L (3.4-5.0); Sodium 139 mmol/L (137-145); Total Protein 7.5 g/dL (6.3-8.2)
[2025-04-29 23:53] LABS: Pregnancy On Board Control Positive
[2025-04-29 23:56] LABS: Add Urine Microscopic? NO; Appearance Urine Clear (Clear); Glucose Urine UA Negative (Negative); Leukocyte Esterase Ur Negative LEU/UL (Negative); Nitrate Urine Negative (Negative); Specific Grav Ur 1.010 (1.010-1.020)
[2025-04-29 23:57] LABS: Lipase 79 U/L (23-300)
[2025-04-29 23:58] LABS: NT Pro B Type Natriuretic Pept < 20 pg/mL (19.9-100)
[2025-04-30 00:01] VITALS: BP 124/87; PULSE 81; RESP 16; O2SAT 98
[2025-04-30 00:10] LABS: Troponin I < 0.012 ng/mL (0.000-0.034)
--- OUTSIDE RECORDS SUMMARY | 2025-04-30 00:10 | XMS_ITS | Clinical Summary ---
Author Organization [facility] Address [address] [place] [address] Care Team Providers Care Inclusion Specialist Name Role Phone Unavailable Primary Care Provider Unavailabl e Source Comments [facility],non-owned Affiliates and Associated Physician Practices is amultiple site organization consisting of ambulatory clinics and hospital sitesin [place], [place], [place] and [place]. This disclosure is being madepursuant to the Care Everywhere program and may not contain all information available regarding this patient. Last updated 18.[facility] Allergies Active Allergy Reactions Criticality Noted Date [...] swallowing tablets/capsules. Prefers chewable or liquid medications. [employer] form completed. Diapers given. 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 initial evaluation on 11/07/2023. Her initial score [...] 4 01/05/2024: Follow-up EPDS score = 6 [facility]: abnormality in 09/30/2023 02/10/2024 Overview (02/03/2024): Images from the original note were not included. [facility] PATIENT--PLEASE CALL [phone] (ex 2) IF TRIAGED OR ADMITTED Care Provider: [facility] consultants involved: Nurse Navigator-Yuri Pozo/Yakelin Puri; MFM-Dr. Celis/Dr. Lima; Pediatric Cardiology-Dr. Lorenzana; Neonatology-Dr. 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 Normal echocardiogram on 11/07/2023 Planned surveillance: Routine care; Amniocentesis done 11/22 at [place]; released from [facility] on 01/04 Delivery location: [facility] Delivery mode: Per usual OB indications Desired Delivery GA: IOL scheduled on 02/07/24 follow up per Neonatology: Discussed with parents, infant will need MRI and neurological consultation to evaluate extent of brain abnormality. Transfer to [facility] after depending how baby responded after . Genetics note: genetic diagnostic testing was performed by amniocentesis. Microarray was normal male. Whole exome sequencing was also performed and was not diagnostic. No further genetic testing is indicated at this time, nor are there plans for cord blood genetic testing. Please request Genetics consult postnatally if clinically indicated by calling the Genetics office at [phone] prior to ordering additional genetic studies. Drawing Tender Concerns: 11/07/2023-Patient with history of anxiety-no medications- [...] and heating? Not hard at all 02/07/2024 [facility] of Occupat ional Health - Occupational Stress [...] place to sleep or slept in a half-way (including now)? No 02/07/2024 Rich[place] Depression Scale Answer Date Recorded Rich[place] Depression Scale Total 2 02/08/2024 The thought of harming myself has occurred to me . Never 02/08/2024 Comments No Sex and Gender Information Value Date Recorded Sex Assigned at Not on file Legal Sex Female 11:04 AM DISTRIBUTION ESTIMATOR Gender Identity Not on file Sexual Orientation [...] ve Non-react dean 12/08/2023 1:47 PM CDT [facility] Comment:No Laboratory eviden ce of HIV infection. Blood BLOOD SPECIMEN / Unknown Lab Venipuncture / Unknown 12/08/2023 12:26 PM CDT 12/08/2023 12:34 PM CDT Edison Moreno MD LAB - CHEMISTRY ORDERABLES Fi nal Result Performing Organization Address [facility]/State/[facility] Co de Phone Number [facility] [address] [place] [phone], [facility] [phone] from Last 3 Months or Most Recently Relevant to Health Maintenance Insurance MEDICAID - [place] [facility] Advance Directives * Full Code (Latest Code Status on File) Date Activated Date Inactivated Comments 02/07/2024 8:56 AM 02/08/2024 5:53 PM
--- OUTSIDE RECORDS SUMMARY | 2025-04-30 00:10 | XMS_ITS | Clinical Summary ---
Author Organization [facility] Address [address] [place] [address] Care Team Providers Care Hearing Health Technician Name Role Phone No, Provider Primary Care [...] CDT Oxygen Saturation 100% 09/16/2023 4:47 PM [employer] [employer]IV[facility] Inhaled Oxygen Concentration - - Weight 61.5 [...] patient's age to complete this topic Insurance [facility] Care Teams Hearing Health Technician Relationship Specialty Start Date End Date No, Provider PCP - General 07/16/22
[2025-04-30] MEDS: POTASSIUM CHLORIDE 20 MEQ ER TABLET PO (00:11)
[2025-04-30 00:45] VITALS: PULSE 88; RESP 16; O2SAT 100
[2025-04-30 01:01] VITALS: BP 125/84; PULSE 89; RESP 20; O2SAT 99
[2025-04-30 01:16] VITALS: BP 119/78; PULSE 74; RESP 16; O2SAT 99
== END 2025-04-30 01:36 | disposition home or self-care (01) ==
PROVIDERS: Emergency Provider Emergency Medicine; PCP Family Medicine
DX: R07.89 Other chest pain (principal); R68.84 Jaw pain; R06.00 Dyspnea, unspecified
CPT/HCPCS: 36415; 71046; 80053; 81003; 81025; 83690; 83880; 84484; 85025; 85380; 93005; 99284; A9270

== ENCOUNTER 2025-05-08 10:15 | Outpatient (CLI) | payer OTHER, SELFPAY ==
--- NOTE | ~2025-05-08 | US_ITS ---
US abdomen complete EXAMINATION: US Abdomen Complete INDICATION: Abdomen discomfort PROCEDURE: Realtime High Resolution abdomen ultrasound. COMPARISON: No prior studies for comparison FINDINGS: Gallbladder within normal limits. No gallstones, pericholecystic fluid, gallbladder wall thickening or biliary dilatation. Common bile duct measures 2 mm. Liver echotexture within normal limits without focal mass. Pancreas within normal limits. Pancreatic tail is obscured by bowel gas. There are multiple splenic cysts.. Renal echotexture is within normal limits bilaterally without hydronephrosis, contour deforming mass or renal stone. Right kidney measures 11.1 cm. Left kidney measures 11 cm. Visualized aspects of the aorta and IVC are within normal limits. Portal vein is patent. No sonographic Yi's sign indicated by the technologist. IMPRESSION: 1: Multiple splenic cysts. Otherwise, unremarkable abdominal ultrasound. Reviewed, dictated and finalized at location O.
--- OUTSIDE RECORDS SUMMARY | 2025-05-08 10:42 | XMS_ITS | Clinical Summary ---
Author Organization [facility] Address [address] [place] [address] Care Team Providers Care Medical Office Secretary Name Role Phone No, Provider Primary Care [...] CDT Oxygen Saturation 100% 09/16/2023 4:47 PM CONVERTIBLE POWER SHOVEL OPERATOR Inhaled Oxygen Concentration - - Weight 61.5 [...] patient's age to complete this topic Insurance [facility] [employer] Care Teams Medical Office Secretary Relationship Specialty Start Date End Date No, Provider PCP - General 07/16/22
--- OUTSIDE RECORDS SUMMARY | 2025-05-08 10:42 | XMS_ITS | Clinical Summary ---
Author Organization [facility] Address [address] [place] [address] Care Team Providers Care Final Rail Cutter Name Role Phone Unavailable Primary Care Provider Unavailabl e Source Comments [facility],non-owned Affiliates and Associated Physician Practices is amultiple site organization consisting of ambulatory clinics and hospital sitesin [place], [place], [place] and [place]. This disclosure is being madepursuant to the Care Everywhere program and may not contain all information available regarding this patient. Last updated 18.[facility] Allergies Active Allergy Reactions Criticality Noted Date [...] swallowing tablets/capsules. Prefers chewable or liquid medications. [employer] form completed. Diapers given. 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 Her initial score [...] 4 01/05/2024: Follow-up EPDS score = 6 [facility]: abnormality in 09/30/2023 02/10/2024 Overview (02/03/2024): Images from the original note were not included. [facility] PATIENT--PLEASE CALL [phone] (ex 2) IF TRIAGED OR ADMITTED Care Provider: [facility] consultants involved: Nurse Navigator-Yuri Pozo/Yakelin Puri; MFM-Dr. Celis/Dr. Lima; Pediatric Cardiology-Dr. Lorenzana; Neonatology-Dr. 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 Normal echocardiogram on 11/07/2023 Planned surveillance: Routine care; Amniocentesis done 11/22 at [place]; released from [facility] on 01/04 Delivery location: [facility] Delivery mode: Per usual OB indications Desired Delivery GA: IOL scheduled on 02/07/24 follow up per Neonatology: Discussed with parents, infant will need MRI and neurological consultation to evaluate extent of brain abnormality. Transfer to [facility] after depending how baby responded after . Genetics note: genetic diagnostic testing was performed by amniocentesis. Microarray was normal male. Whole exome sequencing was also performed and was not diagnostic. No further genetic testing is indicated at this time, nor are there plans for cord blood genetic testing. Please request Genetics consult postnatally if clinically indicated by calling the Genetics office at [phone] prior to ordering additional genetic studies. Senior Reliability Engineer Concerns: 11/07/2023-Patient with history of anxiety-no medications- [...] and heating? Not hard at all 02/07/[address] [facility] [place] of Occupat ional Health - Occupational Stress [...] place to sleep or slept in a mcc (including now)? No 02/07/2024 [place] Depression Scale Answer Date Recorded [place] Depression Scale Total 2 02/08/2024 The thought of harming myself has occurred to me . Never 02/08/2024 Comments No Sex and Gender Information Value Date Recorded Sex Assigned at Not on file Legal Sex Female 11:04 AM SUCTION OPERATOR Gender Identity Not on file Sexual [...] ve Non-react dean 12/08/2023 1:47 PM CDT [facility] Comment:No Laboratory eviden ce of HIV infection. Blood BLOOD SPECIMEN / Unknown Lab Venipuncture / Unknown 12/08/2023 12:26 PM CDT 12/08/2023 12:34 PM CDT Edison Moreno MD LAB - CHEMISTRY ORDERABLES Fi nal Result Performing Organization Address [facility]/State/[facility] Co de Phone Number [facility] [address] [place] [phone], [facility] [phone] from Last 3 Months or Most Recently Relevant to Health Maintenance Insurance MEDICAID - [place] Advance Directives * Full Code (Latest Code Status on File) Date Activated Date Inactivated Comments 02/07/2024 8:56 AM 02/08/2024 5:53 PM
== END 2025-05-08 10:16 | disposition home or self-care (01) ==
LOC: CHSIMG 10:19
PROVIDERS: PCP Family Medicine; Visit Provider Family Medicine
DX: M54.9 Dorsalgia, unspecified (principal); R10.9 Unspecified abdominal pain; D73.4 Cyst of spleen
CPT/HCPCS: 76700

== ENCOUNTER 2025-05-17 12:04 | Outpatient (CLI) | payer OTHER, SELFPAY ==
--- OUTSIDE RECORDS SUMMARY | 2025-05-17 12:09 | XMS_ITS | Clinical Summary ---
Author Organization [email or web address] Address [address] [place] [address] Care Team Providers Care Customer Manager Name Role Phone Unavailable Primary Care Provider Unavailabl e Source Comments [email or web address],non-owned Affiliates and Associated Physician Practices is amultiple site organization consisting of ambulatory clinics and hospital sitesin [place], [place], [place] and [place]. This disclosure is being madepursuant to the Care Everywhere program and may not contain all information available regarding this patient. Last updated 18.[email or web address] Allergies Active Allergy Reactions Criticality Noted Date [...] swallowing tablets/capsules. Prefers chewable or liquid medications. [employer] form completed. Diapers given. 02/16/2024 Problem Noted Date Diagnosed Date METALLURGIST PROCESS malformation, fetus 1 12/08/2023 abnormality affecting management [...] Diagnosed Date Resolved Date Depression screening-Initial at [facility] 11/07/2023 11/07/2023 02/10/2024 Overview (01/05/2024): 11/07/2023 Steven Sams was screened for depression using the [place] Depression Scale (EPDS) at her [facility] initial evaluation on 11/07/2023. Her initial score [...] 4 01/05/2024: Follow-up EPDS score = 6 [facility]: abnormality in 09/30/2023 02/10/2024 Overview (02/03/2024): Images from the original note were not included. [facility] PATIENT--PLEASE CALL [phone] (ex 2) IF TRIAGED OR ADMITTED Care Provider: [facility] consultants involved: Nurse Navigator-Yuri Pozo/Yakelin Puri; MFM-Dr. Celis/Dr. Lima; Pediatric Cardiology-Dr. Lorenzana; Neonatology-Dr. 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 Normal echocardiogram on 11/07/2023 Planned surveillance: Routine care; Amniocentesis done 11/22 at [place]; released from [facility] on 01/04 Delivery location: [facility] Delivery mode: Per usual OB indications Desired Delivery GA: IOL scheduled on 02/07/24 follow up per Neonatology: Discussed with parents, infant will need MRI and neurological consultation to evaluate extent of brain abnormality. [facility] after depending how baby responded after . Genetics note: genetic diagnostic testing was performed by amniocentesis. Microarray was normal male. Whole exome sequencing was also performed and was not diagnostic. No further genetic testing is indicated at this time, nor are there plans for cord blood genetic testing. Please request Genetics consult postnatally if clinically indicated by calling the Genetics office at [phone] prior to ordering additional genetic studies. Convention Services Director Concerns: 11/07/2023-Patient with history of anxiety-no medications- [...] and heating? Not hard at all 02/07/2024 [facility] [place] of Occupat ional Health - Occupational Stress [...] place to sleep or slept in a prison (including now)? No 02/07/2024 [place] Depression Scale Answer Date Recorded [place] Depression Scale Total 2 02/08/2024 The thought of harming myself has occurred to me . Never 02/08/2024 Comments No Sex and Gender Information Value Date Recorded Sex Assigned at Not on file Legal Sex Female 11:04 AM FINANCIAL ANALYST Gender Identity Not on file Sexual Orientation [...] 06/28/2018 06/28/2008, 06/03/1998, 11/26/1994, Additional history exists DEPRESSION SCREENING 09/12/2024 COVID-19 VACCINE ( season) 2025 INFLUENZA VACCINE (#1) 2025 06/28/2008 ZOSTER VACCINE [...] ve Non-react dean 12/08/2023 1:47 PM CDT [facility] Comment:No Laboratory eviden ce of HIV infection. Blood BLOOD SPECIMEN / Unknown Lab Venipuncture / Unknown 12/08/2023 12:26 PM CDT 12/08/2023 12:34 PM CDT Edison Moreno MD LAB - CHEMISTRY ORDERABLES Fi nal Result Performing Organization Address [facility]/State/[facility] Co de Phone Number [facility] [address] [place] [phone], [facility] [phone] from Last 3 Months or Most Recently Relevant to Health Maintenance Insurance MEDICAID - [place] [facility] Advance Directives * Full Code (Latest Code Status on File) Date Activated Date Inactivated Comments 02/07/2024 8:56 AM 02/08/2024 5:53 PM
--- OUTSIDE RECORDS SUMMARY | 2025-05-17 12:09 | XMS_ITS | Clinical Summary ---
Author Organization [facility] Address [address] [place] [address] Care Team Providers Care Monomer Recovery Operator Name Role Phone No, Provider Primary [...] CDT Oxygen Saturation 100% 09/16/2023 4:47 PM BAR GAUGER AND LUBRICATOR TENDER Inhaled Oxygen Concentration - - Weight 61.5 [...] patient's age to complete this topic Insurance [facility] Care Teams Monomer Recovery Operator Relationship Specialty Start Date End Date No, Provider PCP - General 07/16/22
[2025-05-17 12:45] LABS: Anion Gap 9 mmol/L (4-12); Blood Urea Nitrogen 5 mg/dL (7-17); Calcium 9.9 mg/dL (8.4-10.2); Carbon Dioxide 27 mmol/L (22-30); Chloride 107 mmol/L (98-107); Estimated Glomerular Filt Rate > 60; Glucose 83 mg/dL (65-110); Osmolality Calculated 292 mOsm/kg (285-295); Potassium 4.8 mmol/L (3.4-5.0); Sodium 143 mmol/L (137-145)
== END 2025-05-17 12:05 | disposition home or self-care (01) ==
LOC: CHSLAB 12:07
PROVIDERS: PCP Family Medicine; Visit Provider Family Medicine
DX: E87.6 Hypokalemia (principal)
CPT/HCPCS: 36415; 80048

== ENCOUNTER 2025-07-13 17:15 | Emergency (ER) | payer OTHER, SELFPAY ==
[2025-07-13 17:15] VITALS: BP 136/86; PULSE 98; RESP 18; TEMP 36.6; O2SAT 99
--- OUTSIDE RECORDS SUMMARY | 2025-07-13 17:19 | XMS_ITS | Data Portability ---
Author Organization [facility] Address [address] [place] [address] Assessment Encounter Date Assessment Date Assessment LastModified by Organization Details LastModified Time 08/17/2023 08/17/2023 Plan for full transfer to [facility] [email or web address] Not available 08/17/2023 13:09:48 Plan of Treatment Reminders Order Date Submit Date Provider Last Modified By Organization Details Last Modified Time Details Appointments None recorded. Lab urinalysis, dipstick 2022 023 [email or web address] In-Office Order, Internal Use Only DO Not Attach Compendium DO Not Attach Compendium, Do Not Delete/merge, [id number] 13:19:42 aneuploidy risk and X & Y analysis, chromosome specific circulating cell free (CCF) DNA, maternal serum 2022 023 [facility], [address] [place] [address], [address], [place], [address], 17:08:52 panel 2022 023 [employer] [facility], [facility], [address], [place], [address], 3 11:13:48 cf (cystic fibrosis) profile 2022 023 [facility], [address], [address], [place], [address], 3 11:13:50 hemoglobin S (hbs), presence, blood 2022 023 [facility], [address], [address], [place], [address], 3 11:13:52 varicella zoster virus IgG Ab, QN, IA, serum 2022 023 [facility], [address], [address], [place], [address], 3 11:13:53 drug screen, 14 drugs (detectimed ), urine 2022 023 [facility], [address], [address], [place], [address], 3 11:13:51 cytology report, thin prep, smear or scraping, cervical or vaginal 2022 023 [facility], [address], [address], [place], [address], 3 09:18:39 bacterial vaginosis + vaginitis panel, vaginal 2022 023 [facility], [address], [address], [place], [address], 3 11:13:49 urinalysis, dipstick 2022 023 [facility] In-Office Order, Internal Use Only DO Not Attach Compendium DO Not Attach Compendium, Do Not Delete/merge, [id number] 3 12:20:33 test, urine 2022 023 [facility] In-Office Order, Internal Use Only DO Not Attach Compendium DO Not Attach Compendium, Do Not Delete/merge, [id number] 3 12:19:11 Referral None recorded. Procedures None recorded. Surgeries None recorded. Imaging US, obstetric, 1st trimester 2022 023 [facility] Scheduling, [address] [place], [address], 3 15:24:27 Medication Orders 28 mg iron-800 mcg tablet 2022 023 [facility] [address], [place], [address], 3 11:25:48 Patient TargetsNo targets recorded. Patient InstructionsNo instructions recorded. Reason for Referral None Reported. Results Created Date Observation Date Name Description Value Unit Range Abnormal Flag Note LastModifiedBy Organization Detail LastModifiedTime 08/09/2008/11/2023 IGP,C TNGTV ,APT HPV,R FX16/ 18,45 diagnosis: Commen t NEGAT JN FOR INTRA EPITH ELIAL LESIO N OR LIAM FAULKNER . Not Available [facility] ([facility]) [address] [facility], [place], [address], 08/11/2023 09:18:39 08/09/2008/11/2023 IGP,C TNGTV ,APT HPV,R FX16/ 18,45 specimen adequacy: Commen t Satis facto ry for evalu ation . Endoc ervic al and/o r squam ous metap lasti c cells (endo cervi kelly compo nent) are prese nt. Not Available [facility] ([facility]) [address] [facility], [place], [address], 08/11/2023 09:18:39 08/09/20 23 08/11/2023 IGP,C TNGTV ,APT HPV,R FX16/ 18,45 clinician provided ICD10: Commen t Z34.0 1 Not Available [facility] ([facility]) [address] [facility], [place], [address], 08/11/2023 09:18:39 08/09/20 23 08/11/2023 IGP,C TNGTV ,APT HPV,R FX16/ 18,45 performed by: Jojo Yepez , [employer] sapphire t (ASCP ) Not Available [facility] ([facility]) [address] [place], [address], 08/11/2023 09:18:39 08/09/20 23 08/11/2023 IGP,C TNGTV ,APT HPV,R FX16/ 18,45 . . Not Available [facility] ([facility]) [address] [place], [address], 08/11/2023 09:18:39 08/09/20 23 08/11/2023 IGP,C TNGTV [...] ts do occur . Not Available [facility] ([facility]) [address] [facility], [place], [address], 08/11/2023 09:18:39 08/09/20 23 08/11/2023 IGP,C TNGTV ,APT HPV,R FX16/ 18,45 test methodology: Jojo christiansen This liqui d based ThinP rep(R ) pap test was scree petra with the use of an image guide katalina systadali fontaine. Not Available [facility] ([facility]) [address] [place], [address], 08/11/2023 09:18:39 08/09/20 23 08/11/2023 IGP,C TNGTV ,APT HPV,R FX16/ 18,45 HPV aptima Negati ve negati ve This nucle ic acid ampli ficat ion test detec ts fourt een high- risk HPV types (16,1 8,31, 33,35 ,39,4 5,51, 52,56 ,58,5 9,66, 68) witho ut diffe renti ation . Not Available [facility] ([facility]) [address] [facility], [place], [address], 08/11/2023 09:18:39 08/09/20 23 08/11/2023 IGP,C TNGTV ,APT HPV,R FX16/ 18,45 HPV genotype reflex Commen t Crite johnathan not met, HPV Genot ype not perfo rmed. Not Available [facility] ([facility]) [address] [place], [address], 08/11/2023 09:18:39 08/09/20 23 08/11/2023 IGP,C TNGTV ,APT HPV,R FX16/ 18,45 chlamydia, nuc. acid amp Negati ve negati ve Not Available [facility] ([facility]) [address] [place], [address], 08/11/2023 09:18:39 08/09/20 23 08/11/2023 IGP,C TNGTV ,APT HPV,R FX16/ 18,45 gonococcus, nuc. acid amp Negati ve negati ve Not Available [facility] ([facility]) [address] [place], [address], 08/11/2023 09:18:39 08/09/20 23 08/11/2023 IGP,C TNGTV ,APT HPV,R FX16/ 18,45 trich vag by BLAS Negati ve negati ve Not Available [facility] ([facility]) [address] [place], [address], 08/11/2023 09:18:39 08/09/20 23 08/13/2023 MATER NIT21 PLUS CORE gestation Twins Not Available [facility] ([facility]) [address] [place], [address], 08/13/2023 17:08:52 08/09/20 23 08/13/2023 MATER NIT21 PLUS CORE fraction 5% Not Available [facility] ([facility]) [address] [facility], [place], [address], 08/13/2023 17:08:52 08/09/20 23 08/13/2023 MATER NIT21 PLUS CORE gestational age > or = 9W: Yes Not Available [facility] ([facility]) [address] [place], [address], 08/13/2023 17:08:52 08/09/20 23 08/13/2023 MATER NIT21 PLUS CORE test result Negati ve Not Available [facility] ([facility]) [address] [place], [address], 08/13/2023 17:08:52 08/09/20 23 08/13/2023 MATER NIT21 PLUS CORE quality control lab technician comments Jojo christiansen This speci men showe d an expec varun repre senta tion of chrom osome 21, 18 and 13 mater ial. Clini kelly corre latio n is sugadalberto wongd. This is a repor varun twin gesta tion with Y chrom osome mater ial detec varun. Howev er, data did not meet crite johnathan for predi cting sex of both fetus es. This assay is unabl e to deter mine if one or more of the fetus es are male. Not Available [facility] ([facility]) [address] [facility], [place], [address], 08/13/2023 17:08:52 08/09/20 23 08/13/2023 MATER NIT21 PLUS CORE approved by Jojo wesley MD, PhD, [facility], [place] Labor atori es Not Available [facility] ([facility]) [address] [place], [address], 08/13/2023 17:08:52 1108/13/2023 MATER NIT21 PLUS CORE trisomy 21 (down syndrome) Negati ve Not Available [facility] ([facility]) [address] [place], [address], 08/13/2023 17:08:52 08/09/20 23 08/13/2023 MATER NIT21 PLUS CORE trisomy 18 (light syndrome) Negati ve Not Available [facility] ([facility]) [address] [facility], [place], [address], 08/13/2023 17:08:52 08/09/2008/13/2023 MATER NIT21 PLUS CORE trisomy 13 (patau syndrome) Negati ve Not Available [facility] ([facility]) [address] [facility], [place], [address], 08/13/2023 17:08:52 08/09/2008/13/2023 MATER NIT21 PLUS CORE sex Commen t Consi stent with Male Not Available [facility] ([facility]) [address] [place], [address], 08/13/2023 17:08:52 08/09/2008/13/2023 MATER NIT21 PLUS CORE negative predictive value Note The Negat jn Predi ctive Value (NPV) for triso my 21, 18, and 13 is great er than 99%. The NPV for SCA and ESS canno t be calcu lated as SCA and ESS are only repor varun when an abnor malit y is detec varun. Not Available [facility] ([facility]) [address] [facility], [place], [address], 08/13/2023 17:08:52 08/09/2008/13/2023 MATER NIT21 PLUS CORE positive predictive value N/A Not Available [facility] ([facility]) [address] [facility], [place], [address], 08/13/2023 17:08:52 08/09/2008/13/2023 MATER NIT21 PLUS CORE about the test [...] yet been valid ated. Not Available [facility] ([facility]) [address] [facility], [place], [address], 08/13/2023 17:08:52 08/09/20 23 08/13/2023 MATER NIT21 PLUS CORE test method Commen t See Notes Circu latin g cell- free DNA was purif ied from the plasm a compo nent of mater nal blood . The extra cted DNA was then conve rted into a [employer] henny ry for aneup loidy melvin [...] s 16 and 22. Not Available [facility] ([facility]) [address] [facility], [place], [address], 08/13/2023 17:08:52 08/09/20 23 08/13/2023 MATER NIT21 PLUS CORE performance Commen t The perfo rmanc e ian cteri stics of the Mater niT(R ) 21 PLUS labor atory -deve loped test (LDT) have been deter mined in a clini kelly valid ation study with pregn ant women at incre ased risk for chrom osoma l aneup loidy .[1-4 ] Not Available [facility] ([facility]) [address] [facility], [place], [address], 08/13/2023 17:08:52 08/09/20 23 08/13/2023 MATER NIT21 PLUS CORE performance characterist ics [...] ----- ----- ----- ---! ! Jaguar pozo 21 (Chelsey Syndr ome) ! 99.1% ! 99.9% ! !---- ----- ----- ----- ----- ----- ----- ----- ----- ----- ----- ---! ! Jaguar pozo 18 (Eliel olivera Syndr ome) ! >99.9 % ! 99.6% ! !---- ----- ----- ----- ----- ----- ----- ----- ----- ----- ----- ---! ! Triso my 13 (Pata u Syndr ome) ! 91.7% ! 99.7% ! !---- ----- ----- ----- ----- ----- ----- ----- ----- ----- ----- ---! ! Sex Chrom osome Aneup sushant es## ! 96.2% ! 99.7% ! !---- ----- ----- ----- ----- ----- ----- ----- ----- ----- ----- ---! * As repor varun in [employer] datab ase nstd3 7 [http s://w ti.nc bi.nl .[facility] [[facility]] .gov/ dbvar /stud ies/n std37 / ] [...] eton gesta tion only. Not Available [facility] ([facility]) [address] [facility], [place], [address], 08/13/2023 17:08:52 08/09/20 23 08/13/2023 MATER NIT21 [...] with a quali fied healt hcare provi ymaileth. Pregn gal manag ement decis ions, inclu [...] and Fragm in(R) ). Not Available [facility] ([facility]) [address] [facility], [place], [address], 08/13/2023 17:08:52 08/09/20 23 08/13/2023 MATER NIT21 PLUS CORE note Commen t See Notes Lee [employer] is a subsi diary of Labor atory Corpo ratio n of Jordyn Torresi ngs, using the brand [employer]. This test was devel oped and its perfo rmanc e ian cteri stics deter mined by [employer]. It has not been clear ed or appro buck by the Food and Drug Admin istra tion. This labor atory is certi fied under the Clini kelly Labor atory Impro vemen t Amend ments (CLIA ) as quali fied to perfo rm high compl exity clini kelly labor atory testi ng and accre dited by the Colle ge of [employer] can Patho logis ts (CAP) . Not Available [facility] ([facility]) [address] [facility], [place], [address], 08/13/2023 17:08:52 08/09/20 23 08/13/2023 MATER NIT21 PLUS CORE references Commen t 1. Pasquale REYEZ, et al. Edgar Med. 2012; 14(3) :296- 305. 2. Lily SOFIA, et al. Prena kuldip Diag. 2013; 33(6) :591- 597. 3. El C, et al. Clin Chem. 2015 Dec;6 1(4): 608-6 16. 4. Pasquale REYEZ, et al. Edgar Med. 2011; 13(11 ):913 -920. 5. ACOG/ SMFM Pract ice Bulle tin No. 226, Jun 2020. Not Available [facility] ([facility]) [address] [facility], [place], [address], 08/13/2023 17:08:52 08/09/20 23 08/13/2023 MATER NIT21 PLUS CORE pdf . Not Available [facility] ([facility]) [address] [facility], [place], [address], 08/13/2023 17:08:52 08/09/20 23 08/09/2023 PREGN GAL, INITI AL SCREE N WBC 6.5 x10e3 /uL 3.4-10 .8 Not Available [facility] ([facility]) [address] [place], [address], 08/23/2023 11:13:48 08/09/20 23 08/09/2023 PREGN GAL, INITI AL SCREE N RBC 4.04 x10e6 /uL 3.77-5 .28 Not Available [facility] ([facility]) [address] [place], [address], 08/23/2023 11:13:48 08/09/20 23 08/09/2023 PREGN GAL, INITI AL SCREE N hemoglobin 12.5 g/dL 11.1-1 5.9 Not Available [facility] ([facility]) [address] [place], [address], 08/23/2023 11:13:48 08/09/20 23 08/09/2023 PREGN GAL, INITI AL SCREE N hematocrit 36.0 % 34.0-4 6.6 Not Available [facility] ([facility]) [address] [facility], [place], [address], 08/23/2023 11:13:48 08/09/2008/09/2023 PREGN GAL, INITI AL SCREE N MCV 89 fL 79-97 Not Available [facility] ([facility]) [address] [facility], [place], [address], 08/23/2023 11:13:48 08/09/20 23 08/09/2023 PREGN GAL, INITI AL SCREE N MCH 30.9 pg 26.6-3 3.0 Not Available [facility] ([facility]) [address] [facility], [place], [address], 08/23/2023 11:13:48 08/09/20 23 08/09/2023 PREGN GAL, INITI AL SCREE N MCHC 34.7 g/dL 31.5-3 5.7 Not Available [facility] ([facility]) [address] [facility], [place], [address], 08/23/2023 11:13:48 08/09/20 23 08/09/2023 PREGN GAL, INITI AL SCREE N RDW 13.9 % 11.7-1 5.4 Not Available [facility] ([facility]) [address] [facility], [place], [address], 08/23/2023 11:13:48 08/09/20 23 08/09/2023 PREGN GAL, INITI AL SCREE N platelets 209 x10e3 /uL 150-45 0 Not Available [facility] ([facility]) [address] [facility], [place], [address], 08/23/2023 11:13:48 08/09/20 23 08/09/2023 PREGN GAL, INITI AL SCREE N neutrophils 69 % notest ab. Not Available [facility] ([facility]) [address] [facility], [place], [address], 08/23/2023 11:13:48 08/09/20 23 08/09/2023 PREGN GAL, INITI AL SCREE N lymphs 23 % notest ab. Not Available [facility] ([facility]) [address] [facility], [place], [address], 08/23/2023 11:13:48 08/09/20 23 08/09/2023 PREGN GAL, INITI AL SCREE N monocytes 7 % notest ab. Not Available [facility] ([facility]) [address] [facility], [place], [address], 08/23/2023 11:13:48 08/09/20 23 08/09/2023 PREGN GAL, INITI AL SCREE N eos 1 % notest ab. Not Available [facility] ([facility]) [address] [facility], [place], [address], 08/23/2023 11:13:48 08/09/20 23 08/09/2023 PREGN GAL, INITI AL SCREE N basos 0 % notest ab. Not Available [facility] ([facility]) [address] [facility], [place], [address], 08/23/2023 11:13:48 08/09/20 23 08/09/2023 PREGN GAL, INITI AL SCREE N neutrophils (absolute) 4.4 x10e3 /uL 1.4-7. 0 Not Available [facility] ([facility]) [address] [facility], [place], [address], 08/23/2023 11:13:48 08/09/20 23 08/09/2023 PREGN GAL, INITI AL SCREE N lymphs (absolute) 1.5 x10e3 /uL 0.7-3. 1 Not Available [facility] ([facility]) [address] [facility], [place], [address], 08/23/2023 11:13:48 08/09/20 23 08/09/2023 PREGN GAL, INITI AL SCREE N monocytes(ab solute) 0.5 x10e3 /uL 0.1-0. 9 Not Available [facility] ([facility]) [address] [facility], [place], [address], 08/23/2023 11:13:48 08/09/20 23 08/09/2023 PREGN GAL, INITI AL SCREE N eos (absolute) 0.1 x10e3 /uL 0.0-0. 4 Not Available [facility] ([facility]) [address] [facility], [place], [address], 08/23/2023 11:13:48 08/09/20 23 08/09/2023 PREGN GAL, INITI AL SCREE N baso (absolute) 0.0 x10e3 /uL 0.0-0. 2 Not Available [facility] ([facility]) [address] [facility], [place], [address], 08/23/2023 11:13:48 08/09/20 23 08/09/2023 PREGN GAL, INITI AL SCREE N immature granulocytes 0 % notest ab. Not Available [facility] ([facility]) [address] [facility], [place], [address], 08/23/2023 11:13:48 08/09/20 23 08/09/2023 PREGN GAL, INITI AL SCREE N immature grans (abs) 0.0 x10e3 /uL 0.0-0. 1 Not Available [facility] ([facility]) [address] [facility], [place], [address], 08/23/2023 11:13:48 08/09/20 23 08/10/2023 PREGN GAL, INITI AL SCREE N HBsAg screen Negati ve negati ve Not Available [facility] ([facility]) [address] [facility], [place], [address], 08/23/2023 11:13:48 08/09/2008/10/2023 PREGN GAL, INITI AL SCREE N HCV Ab Non Reacti ve nonrea ctive Not Available [facility] ([facility]) [address] [facility], [place], [address], 08/23/2023 11:13:48 08/09/20 23 08/10/2023 PREGN GAL, INITI AL SCREE N RPR Non Reacti ve nonrea ctive Not Available [facility] ([facility]) [address] [facility], [place], [address], 08/23/2023 11:13:48 08/09/20 23 08/10/2023 PREGN GAL, INITI AL SCREE N rubella antibodies, IgG 3.14 index immune >0.99 Non-i mmune <0.90 Equiv ocal 0.90 - 0.99 Immun e >0.99 Not Available [facility] ([facility]) [address] [facility], [place], [address], 08/23/2023 11:13:48 08/09/20 23 08/10/2023 PREGN GAL, INITI AL SCREE N ABO grouping O Not Available [facility] ([facility]) [address] [facility], [place], [address], 08/23/2023 11:13:48 08/09/2008/10/2023 PREGN GAL, INITI AL SCREE N Rh factor Positi ve Pleas e note: Prior recor ds for this patie nt's ABO / Rh type are not avail able for addit ional verif icati on. Not Available [facility] ([facility]) [address] [facility], [place], [address], 08/23/2023 11:13:48 08/09/20 23 08/10/2023 PREGN GAL, INITI AL SCREE N antibody screen Negati ve negati ve Not Available [facility] ([facility]) [address] [facility], [place], [address], 08/23/2023 11:13:48 08/09/2008/10/2023 PREGN GAL, INITI AL SCREE N HIV Ab/P24 Ag screen Non Reacti ve nonrea ctive HIV Negat jn HIV-1 /HIV- 2 antib odies and HIV-1 p24 antig en were NOT detec varun. There is no labor atory evide nce of HIV infec tion. Not Available [facility] ([facility]) [address] [place], [address], 08/23/2023 11:13:48 08/09/2008/10/2023 PREGN GAL, INITI AL SCREE N specific gravity 1.022 1.005- 1.030 Not Available [facility] ([facility]) [address] [facility], [place], [address], 08/23/2023 11:13:48 08/09/2008/10/2023 PREGN GAL, INITI AL SCREE N pH 5.5 5.0-7. 5 Not Available [facility] ([facility]) [address] [facility], [place], [address], 08/23/2023 11:13:48 08/09/2008/10/2023 PREGN GAL, INITI AL SCREE N urine-color Yellow yellow Not Available [facility] ([facility]) [address] [place], [address], 08/23/2023 11:13:48 08/09/2008/10/2023 PREGN GAL, INITI AL SCREE N appearance Cloudy clear abnormal Not Available [facility] ([facility]) [address] [place], [address], 08/23/2023 11:13:48 08/09/2008/10/2023 PREGN GAL, INITI AL SCREE N WBC esterase Negati ve negati ve Not Available [facility] ([facility]) [address] [facility], [place], [address], 08/23/2023 11:13:48 08/09/2008/10/2023 PREGN GAL, INITI AL SCREE N protein Negati ve negati ve/tra ce Not Available [facility] ([facility]) [address] [place], [address], 08/23/2023 11:13:48 08/09/2008/10/2023 PREGN GAL, INITI AL SCREE N glucose Negati ve negati ve Not Available [facility] ([facility]) [address] [place], [address], 08/23/2023 11:13:48 08/09/2008/10/2023 PREGN GAL, INITI AL SCREE N ketones Negati ve negati ve Not Available [facility] ([facility]) [address] [place], [address], 08/23/2023 11:13:48 08/09/2008/10/2023 PREGN GAL, INITI AL SCREE N occult blood Negati ve negati ve Not Available [facility] ([facility]) [address] [place], [address], 08/23/2023 11:13:48 08/09/2008/10/2023 PREGN GAL, INITI AL SCREE N bilirubin Negati ve negati ve Not Available [facility] ([facility]) [address] [place], [address], 08/23/2023 11:13:48 08/09/2008/10/2023 PREGN GAL, INITI AL SCREE N urobilinogen ,semi-qn 0.2 mg/dL 0.2-1. 0 Not Available [facility] ([facility]) [address] [place], [address], 08/23/2023 11:13:48 08/09/20 23 08/10/2023 PREGN GAL, INITI AL SCREE N nitrite, urine Negati ve negati ve Not Available [facility] ([facility]) [address] [facility], [place], [address], 08/23/2023 11:13:48 08/09/20 23 08/10/2023 PREGN GAL, INITI AL SCREE N microscopic examination Commen t Micro scopi c follo ws if indic ated. Not Available [facility] ([facility]) [address] [facility], [place], [address], 08/23/2023 11:13:48 08/09/2008/10/2023 PREGN GAL, INITI AL SCREE N microscopic examination See below: Micro scopi c was indic ated and was perfo rmed. Not Available [facility] ([facility]) [address] [facility], [place], [address], 08/23/2023 11:13:48 08/09/2008/11/2023 PREGN GAL, INITI AL SCREE N chlamydia trachomatis, BLAS Negati ve negati ve Not Available [facility] ([facility]) [address] [facility], [place], [address], 08/23/2023 11:13:48 08/09/20 23 08/11/2023 PREGN GAL, INITI AL SCREE N neisseria gonorrhoeae, BLAS Negati ve negati ve Not Available [facility] ([facility]) [address] [facility], [place], [address], 08/23/2023 11:13:48 08/09/20 23 08/11/2023 PREGN GAL, INITI AL SCREE N urine culture,pren atal, w/gbs Final report Not Available [facility] ([facility]) [address] [facility], [place], [address], 08/23/2023 11:13:48 08/09/20 23 08/10/2023 NUSWA B VAGIN ITIS (VG) atopobium vaginae High - 2 score abnormal Not Available [facility] ([facility]) [address] [facility], [place], [address], 08/23/2023 11:13:49 08/09/2008/10/2023 NUSWA B VAGIN ITIS (VG) bvab 2 Low - 0 score Not Available [facility] ([facility]) [address] [facility], [place], [address], 08/23/2023 11:13:49 08/09/2008/10/2023 NUSWA B VAGIN ITIS (VG) megasphaera 1 Low [...] Drug Admin istra tion. Not Available [facility] ([facility]) [address] [facility], [place], [address], 08/23/2023 11:13:49 08/09/2008/10/2023 NUSWA B VAGIN ITIS (VG) theodore albicans, BLAS Negati ve negati ve Not Available [facility] ([facility]) [address] [facility], [place], [address], 08/23/2023 11:13:49 08/09/2008/10/2023 NUSWA B VAGIN ITIS (VG) theodore glabrata, BLAS Negati ve negati ve Not Available [facility] ([facility]) [address] [facility], [place], [address], 08/23/2023 11:13:49 08/09/20 23 08/11/2023 NUSWA B VAGIN ITIS (VG) trich vag by BLAS Negati ve negati ve Not Available [facility] ([facility]) [address] [facility], [place], [address], 08/23/2023 11:13:49 08/09/2008/09/2023 CYSTI C FIBRO SIS PROFI LE comment: Commen t The assay provi chris infor matio n inten ded to be used for alexsandra er scree yobani in adult s of repro ducti ve age, as an aid in [facility] rn scree yobani, and as a confi rmato ry test for anoth er medic ally estab lishe d diagn osis in [facility] rns and child bridger. The test is not indic ated for use in diagn ostic testi ng, pre-i mplan tatio n scree yobani, or for any stand -ivone e diagn ostic purpo ses witho ut confi rmati on by anoth er medic ally estab lishe d diagn ostic produ ct or proce dure. Eff ectiv e Janua ry 2023 05783 3 Cysti c Fibro sis Profi le will be made non-o rdera ble. This inclu chris any custo m profi les which conta in this test. [facility] offer s alter nativ e cysti c fibro sis testi ng. Avail able alter nativ es are: 26886 2 CF Full- gene Alexsandra er Scree n for alexsandra er seque nce melvin sis by NGS; 74323 5 Cysti c Fibro sis, 97 Varia nts for alexsandra er or diagn ostic targe varun melvin sis; and 11946 9 GeneS eq PLUS, CFTR for diagn ostic seque nce melvin sis by NGS. Pleas e conta ct your local [facility] repre senta tive to discu ss testi ng optio ns. Not Available [facility] ([facility]) [address], [place], [address], 08/23/2023 11:13:50 08/09/20 23 08/23/2023 CYSTI C [...] ry Detec tion Ethni city Rate Rosie fried 10/07 to 97% Jewis h Cauca jamila 10/06 to 90% (non- Hispa alia) Afric an-Am nannette n to 69% Hispa alia to 73% to 55% This inter preta tion is based on the clini kelly and famil y relat ionsh ip infor matio n provi ded and the curre nt under stand ing of the [facility] edgar ics of this condi tion. MUTAT [...] ts Relea sed By: Gi Patterson, PhD, FAC [address] [facility] , [facility] [address] Repor t Relea sed By: Gi Patterson, Ph.D. , [facility] Not Available [facility] ([facility]) [address] [place], [address], 08/23/2023 11:13:50 08/09/20 23 08/23/2023 CYSTI C FIBRO SIS PROFI LE pdf . Not Available [facility] ([facility]) [address] [place], [address], 08/23/2023 11:13:50 08/09/20 23 08/12/2023 DRUG SCREE N 17 W/CON F, UR creatinine 129 mg/dL REFER ENCE RANGE : Ref Range >=20 Not Available [facility] ([facility]) [address] [place], [address], 08/23/2023 11:13:51 08/09/20 23 08/12/2023 DRUG SCREE N 17 W/CON F, UR ethanol biomarkers ia Negati ve NG/mL cutoff :500 Not Available [facility] ([facility]) [address] [place], [address], 08/23/2023 11:13:51 08/09/20 23 08/12/2023 DRUG SCREE N 17 W/CON F, UR amphetamines ia Negati ve NG/mL cutoff :300 Not Available [facility] ([facility]) [address] [place], [address], 08/23/2023 11:13:51 08/09/20 23 08/12/2023 DRUG SCREE N 17 W/CON F, UR barbiturates ia Negati ve NG/mL cutoff :200 Not Available [facility] ([facility]) [address] [place], [address], 08/23/2023 11:13:51 08/09/20 23 08/12/2023 DRUG SCREE N 17 W/CON F, UR benzodiazepi bre ia Negati ve NG/mL cutoff :50 Not Available [facility] ([facility]) [address] [place], [address], 08/23/2023 11:13:51 08/09/20 23 08/12/2023 DRUG SCREE N 17 W/CON F, UR cocaine metabolite ia Negati ve NG/mL cutoff :150 Not Available [facility] ([facility]) [address] [place], [address], 08/23/2023 11:13:51 08/09/20 23 08/12/2023 DRUG SCREE N 17 W/CON F, UR phencyclidin e ia Negati ve NG/mL cutoff :25 Not Available [facility] ([facility]) [address] [place], [address], 08/23/2023 11:13:51 08/09/20 23 08/12/2023 DRUG SCREE N 17 W/CON F, UR cannabinoids ia Negati ve NG/mL cutoff :20 Not Available [facility] ([facility]) [address] [place], [address], 08/23/2023 11:13:51 08/09/20 23 08/12/2023 DRUG SCREE N 17 W/CON F, UR 6-acetylmorp autumn ia Negati ve NG/mL cutoff :10 Not Available [facility] ([facility]) [address] [place], [address], 08/23/2023 11:13:51 08/09/20 23 08/12/2023 DRUG SCREE N 17 W/CON F, UR opiate class ia Negati ve NG/mL cutoff :100 Not Available [facility] ([facility]) [address] [place], [address], 08/23/2023 11:13:51 08/09/20 23 08/12/2023 DRUG SCREE N 17 W/CON F, UR oxycodone class ia Negati ve NG/mL cutoff :100 Not Available [facility] ([facility]) [address] [place], [address], 08/23/2023 11:13:51 08/09/20 23 08/12/2023 DRUG SCREE N 17 W/CON F, UR methadone ia Negati ve NG/mL cutoff :100 Not Available [facility] ([facility]) [address] [place], [address], 08/23/2023 11:13:51 08/09/20 23 08/12/2023 DRUG SCREE N 17 W/CON F, UR fentanyl ia Negati ve NG/mL cutoff :2.0 Not Available [facility] ([facility]) [address] [place], [address], 08/23/2023 11:13:51 08/09/20 23 08/12/2023 DRUG SCREE N 17 W/CON F, UR buprenorphin e ia Negati ve NG/mL cutoff :5.0 Not Available [facility] ([facility]) [address] [place], [address], 08/23/2023 11:13:51 08/09/20 23 08/12/2023 DRUG SCREE N 17 W/CON F, UR tramadol ia Negati ve NG/mL cutoff :200 Not Available [facility] ([facility]) [address] [facility] [place], [address], 08/23/2023 11:13:51 08/09/20 23 08/12/2023 DRUG SCREE N 17 W/CON F, UR propoxyphene ia Negati ve NG/mL cutoff :300 Not Available [facility] ([facility]) [address] [place], [address], 08/23/2023 11:13:51 08/09/20 23 08/12/2023 DRUG SCREE N 17 W/CON F, UR tapentadol, ia Negati ve NG/mL cutoff :200 Not Available [facility] ([facility]) [address] [place], [address], 08/23/2023 11:13:51 08/09/20 23 08/12/2023 DRUG SCREE N 17 W/CON F, UR nicotine metabolite Negati ve Not Available [facility] ([facility]) [address] [place] [address], [address], 08/23/2023 11:13:51 08/09/2008/12/2023 DRUG SCREE N 17 W/CON F, UR cotinine Not Detect ed NG/mL Not Available [facility] ([facility]) [address] [place], [address], 08/23/2023 11:13:51 08/09/2008/10/2023 HB SOLU + RFLX FRAC hemoglobin (HGB) solubility Negati ve negati ve Not Available [facility] ([facility]) [address] [place], [address], 08/23/2023 11:13:52 08/09/2008/10/2023 VARIC LENY- ZOSTE R [...] stage of disea se. Not Available [facility] ([facility]) [address] [facility], [place], [address], 08/23/2023 11:13:53 08/09/20 23 08/11/2023 RESUL T result 1 Commen t Mixed uroge nital inderjit 25,00 0-50, 000 colon y formi ng units per mL Not Available [facility] ([facility]) [address] [facility], [place], [address], 08/23/2023 11:13:53 08/09/2008/10/2023 MICRO SCOPI C EXAMI NATIO N WBC 0-5 /hpf 0-5 Not Available [facility] ([facility]) [address] [facility], [place], [address], 08/23/2023 11:13:50 08/09/2008/10/2023 MICRO SCOPI C EXAMI NATIO N RBC 0-2 /hpf 0-2 Not Available [facility] ([facility]) [address] [facility], [place], [address], 08/23/2023 11:13:50 08/09/2008/10/2023 MICRO SCOPI C EXAMI NATIO N epithelial cells (non renal) >10 /hpf 0-10 abnormal Not Available [facility] ([facility]) [address] [place], [address], 08/23/2023 11:13:50 08/09/2008/10/2023 MICRO SCOPI C EXAMI NATIO N casts None seen /lpf nonese en Not Available [facility] ([facility]) [address] [place], [address], 08/23/2023 11:13:50 08/09/20 23 08/10/2023 MICRO SCOPI C EXAMI NATIO N mucus threads Presen t notest ab. Not Available [facility] ([facility]) [address] [facility], [place], [address], 08/23/2023 11:13:50 08/09/20 23 08/10/2023 MICRO SCOPI C EXAMI NATIO N bacteria Many nonese en/few abnormal Not Available [facility] ([facility]) [address] [facility], [place], [address], 08/23/2023 11:13:50 08/09/20 23 08/10/2023 INTER PRETA TION: interpretati on: Commen t Not infec varun with HCV unles s early or acute infec tion is suspe cted (whic h may be delay ed in an immun ocomp romis ed indiv idual ), or other evide nce exist s to indic ate HCV infec tion. Not Available [facility] ([facility]) [address] [facility], [place], [address], 08/23/2023 11:13:48 08/09/2008/09/2023 urina lysis , dipst ick Leukocytes Negati ve Not Available In-Office Order Internal Use Only DO Not Attach Compendium DO Not Attach Compendium, Do Not Delete/merge, [id number] 08/09/2023 09:24:08 08/09/20 23 08/09/2023 urina lysis , dipst ick Nitrite negati ve Not Available In-Office Order Internal Use Only DO Not Attach Compendium DO Not Attach Compendium, Do Not Delete/merge, [id number] 08/09/2023 09:24:08 08/09/20 23 08/09/2023 urina lysis , dipst ick Urobilinogen .2 Not Available In-Of fice Order Internal Use Only DO Not Attach Compendium DO Not Attach Compendium, Do Not Delete/merge, [id number] 08/09/2023 09:24:08 08/09/20 23 08/09/2023 urina lysis , dipst ick Protein Negati ve Not Available In-Office Order Internal Use Only DO Not Attach Compendium DO Not Attach Compendium, Do Not Delete/merge, [id number] 08/09/2023 09:24:08 08/09/20 23 08/09/2023 urina lysis , dipst ick pH 5.0 Not Available In-Office Order Internal Use Only DO Not Attach Compendium DO Not Attach Compendium, Do Not Delete/merge, [facility] 08/09/2023 09:24:08 08/09/20 23 08/09/2023 urina lysis , dipst ick Blood Negati ve Not Available In-Office Order Internal Use Only DO Not Attach Compendium DO Not Attach Compendium, Do Not Delete/merge, [facility] 08/09/2023 09:24:08 08/09/20 23 08/09/2023 urina lysis , dipst ick Specific [place] 1.025 Not Available In-Off ice Order Internal Use Only DO Not Attach Compendium DO Not Attach Compendium, Do Not Delete/merge, [facility] 08/09/2023 09:24:08 08/09/20 23 08/09/2023 urina lysis , dipst ick Ketone Negati ve Not Available In-Office Order Internal Use Only DO Not Attach Compendium DO Not Attach Compendium, Do Not Delete/merge, [facility] 08/09/2023 09:24:08 08/09/20 23 08/09/2023 urina lysis , dipst ick Bilirubin Negati ve Not Available In-Office Order Internal Use Only DO Not Attach Compendium DO Not Attach Compendium, Do Not Delete/merge, [facility] 08/09/2023 09:24:08 08/09/20 23 08/09/2023 urina lysis , dipst ick Glucose Negati ve Not Available In-Office Order Internal Use Only DO Not Attach Compendium DO Not Attach Compendium, Do Not Delete/merge, [facility] 08/09/2023 09:24:08 08/09/20 23 08/09/2023 urina lysis , dipst ick Appearance Clear Not Available In-Offi ce Order Internal Use Only DO Not Attach Compendium DO Not Attach Compendium, Do Not Delete/merge, [facility] 08/09/2023 09:24:08 08/09/20 23 08/09/2023 urina lysis , dipst ick Color Yellow Not Available In-Office Order Internal Use Only DO Not Attach Compendium DO Not Attach Compendium, Do Not Delete/merge, [id number] 08/09/2023 09:24:08 08/09/20 23 08/09/2023 pregn gal test, urine HCG positi ve Not Available In-Office Order Internal Use Only DO Not Attach Compendium DO Not Attach Compendium, Do Not Delete/merge, [id number] 08/09/2023 09:21:21 08/17/20 23 08/17/2023 urina lysis , dipst ick Leukocytes Negati ve Not Available In-Office Order Internal Use Only DO Not Attach Compendium DO Not Attach Compendium, Do Not Delete/merge, [id number] 08/17/2023 12:43:44 08/17/20 23 08/17/2023 urina lysis , dipst ick Nitrite negati ve Not Available In-Office Order Internal Use Only DO Not Attach Compendium DO Not Attach Compendium, Do Not Delete/merge, [id number] 08/17/2023 12:43:44 08/17/20 23 08/17/2023 urina lysis , dipst ick Urobilinogen 1 Not Available In-Of fice Order Internal Use Only DO Not Attach Compendium DO Not Attach Compendium, Do Not Delete/merge, [id number] 08/17/2023 12:43:44 08/17/20 23 08/17/2023 urina lysis , dipst ick Protein Trace Not Available In-Office Order Internal Use Only DO Not Attach Compendium DO Not Attach Compendium, Do Not Delete/merge, [id number] 08/17/2023 12:43:44 08/17/20 23 08/17/2023 urina lysis , dipst ick pH 7.0 Not Available In-Office Order Internal Use Only DO Not Attach Compendium DO Not Attach Compendium, Do Not Delete/merge, [id number] 08/17/2023 12:43:44 08/17/20 23 08/17/2023 urina lysis , dipst ick Blood Negati ve Not Available In-Office Order Internal Use Only DO Not Attach Compendium DO Not Attach Compendium, Do Not Delete/merge, [id number] 08/17/2023 12:43:44 08/17/20 23 08/17/2023 urina lysis , dipst ick Specific [place] 1.015 Not Available In-Off ice Order Internal Use Only DO Not Attach Compendium DO Not Attach Compendium, Do Not Delete/merge, [id number] 08/17/2023 12:43:44 08/17/20 23 08/17/2023 urina lysis , dipst ick Ketone Negati ve Not Available In-Office Order Internal Use Only DO Not Attach Compendium DO Not Attach Compendium, Do Not Delete/merge, [id number] 08/17/2023 12:43:44 08/17/20 23 08/17/2023 urina lysis , dipst ick Bilirubin Negati ve Not Available In-Office Order Internal Use Only DO Not Attach Compendium DO Not Attach Compendium, Do Not Delete/merge, [id number] 08/17/2023 12:43:44 08/17/20 23 08/17/2023 urina lysis , dipst ick Glucose Negati ve Not Available In-Office Order Internal Use Only DO Not Attach Compendium DO Not Attach Compendium, Do Not Delete/merge, [id number] 08/17/2023 12:43:44 08/17/20 23 08/17/2023 urina lysis , dipst ick Appearance Slight ly Cloudy Not Available In-Office Order Internal Use Only DO Not Attach Compendium DO Not Attach Compendium, Do Not Delete/merge, [id number] 08/17/2023 12:43:44 08/17/20 23 08/17/2023 urina lysis , dipst ick Color Yellow Not Available In-Office Order Internal Use Only DO Not Attach Compendium DO Not Attach Compendium, Do Not Delete/merge, [id number] 08/17/2023 12:43:44 08/09/20 23 08/09/2023 US, obste tric, 1st trime ster No observ ation record ed. [email or web address] Not Available 2022 12:08:17 08/09/20 23 08/09/2023 US, obste tric, 1st trime ster No observ ation record ed. [email or web address] [facility] [address] [place], [address], 08/18/2023 12:08:17 08/09/20 23 08/09/2023 US, obste tric, 1st trime ster No observ ation record ed. [email or web address] [place] [address] [place], [address], 08/18/2023 12:08:18 08/09/20 23 08/09/2023 US, obste tric, 1st trime ster No observ ation record ed. [email or web address] [place] [address] [place], [address], 08/18/2023 12:08:18 08/09/20 23 08/09/2023 US, obste tric, 1st trime ster No observ ation record ed. [email or web address] ([facility]) Scheduling [address] [facility] [place], [address], 08/26/2023 18:59:54 Result Notes None recorded. Problems Name Problem SNOMED Code Status Onset Date Resolution Date Notes Provider Name and Address Organization Details Recorded Time 69540665 Completed 202209/29/2024 Maureen Barbosa MD Attn: Dione julissa,[address] [place], [address] [place] [address] - [facility] 5 23:11:53 Past history of premature delivery 007099474 Completed 2022 Mahsa Hebblethw aite null, [place] - [facility] 3 12:58:58 Past history of pre-eclam psia [id number] 100 Completed 2022 Mahsa Hebblethw aite [place] [facility] 3 12:58:58 Monochori onic diamnioti c twin 259338353 Completed 2022 Mahsa Hebblethw aite [place], [place] [facility] 3 12:58:58 Palpitati ons 35989140 Completed 2022 Mahsa Hebblethw aite null, [place] - [facility] 3 12:58:58 Problem Notes None recorded. Medical Equipment None Reported. Allergies Allergen ID Allergen Name Allergen Category Reaction Reaction Severity Criticality Documentation Date Start Date Code Code System Note Provider Name and Address Organization Details Recorded Time 670730 [facility] severe Not available 08/09/2023 46103 2 RxNorm Alexandria Amezcua MA staci, [facility] 3 09:37:17 Medications Name Sig Start Date Stop Date [...] No t Available Vitals Date Recorded Body weight Provider Name an d Address Organization Details Last Updated DateTime 08/09/2023 16305.23710 g JOHANN WHITFIELD MD Attn: Accounting,[address] [place], [address], [facility] 08/19/2023 15:45:00 Date Recorded Body height Body mass index (BMI) Heart rate Respiratory rate Body temperature Systolic And Diastolic Provider Name and Address Organization Details Last Updated DateTime 3 154.94 cm 23.4 kg/m2 68 /min 18 /min 98.3 [degF] 120/86 mm[Hg] Alexandria Amezcua [place] - [facility] 3 09:37:00 Date Recorded Body weight Provider Name an d Address Organization Details Last Updated DateTime 08/17/2023 45011.137134 g MELISA ARMAS DO Attn: Accounting,[address] [facility], [place], [address], [facility] 08/17/2023 13:13:15 Date Recorded Body height Provider Name an d Address Organization Details Last Updated DateTime 08/17/2023 154.94 cm Ngoc Ramsey RN [facility] 08/17/20 11:43:16 Date Recorded Body mass index (BMI) Heart rate Heart rate Heart rate Body temperature Respiratory rate Oxygen saturation Oxygen saturation in Arterial blood by Pulse oximetry Systolic And Diastolic Systolic And Diastolic Systolic And Diastolic Provider Name and Address Organization Details Last Updated DateTime 23.9 kg/m2 88 /min 102 /min 123 /min 99.5 [degF] 18 /min 98 % 98 % 110/69 mm[Hg] 117/79 mm[Hg] 114/82 mm[Hg] Monique Cooley MA [facility] 12:43:00 Social History Question Answer Notes LastModified by Readmill Details LastModified Time Tobacco Smoking Status Former Smoker Alexandria Amezcua [place] null, [place] [facility] 08/09/2023 09:37:58 What Was The Date Of Your Most Recent Tobacco Screening? 08/17/2023 Information not available 08/17/2023 Has Tobacco Cessation Counseling Been Provided? Yes [email or web address] Information not available 08/09/2023 On What Date Was Tobacco Cessation Counseling Provided? 08/17/2023 Information not available 08/17/2023 Sex: Female Functional Status Question Answer Note LastModified by Readmill Details LastModified Time Do you use any illicit or recreational drugs? No Information not available 08/17/2023 What is your level of alcohol consumption? None Information not available 08/17/2023 Mental Status None recorded. Family History Nothing Reported. Medical History Condition Response Coronary Artery Disease N Other N High Blood Pressure N Atrial Fibrillation N Kidney or Bladder Problems N Thyroid Problems N GI Problems N Depression N COPD N Blood Clots N Skin Problems N Anemia N Heart Attack (SD) N Anxiety Disorder N Diabetes N Muscle, Joint, or Bone Problems N Seizures/Epilepsy N Acid Reflux (GERD) N Cancer N Stroke N Asthma N Allergies N High Cholesterol N Hepatitis N Liver Disease N Headaches N Heart Failure N Osteoporosis N Gynecological [...] completed MELISA ARMAS DO Attn: Accounting,[address] [place], [place], [address] [place] [address], [place] [facility] 08/17/2023 11:40:02 Hib, unspecified formulation 4 completed MELISA ARMAS DO Attn: Accounting,[address] [place], [place], [address] [place] [address], [place] [facility] 08/17/2023 11:40:03 Hib, unspecified formulation 3 completed MELISA ARMAS DO Attn: Accounting,[address] [place], [place], [address] [place] [address], [place] [facility] 08/17/2023 11:40:03 Influenza, live, trivalent, intranasal, PF 8 completed MELISA ARMAS DO Attn: Accounting,[address] [place], [place], [address] [place] [address], [place] [facility] 08/17/2023 11:40:03 MMR 5 completed MELISA ARMAS DO Attn: Accounting,[address] [place], [place], [address] [place] [address], [place] [facility] 08/17/2023 11:40:03 MMR 8 completed MELISA ARMAS DO Attn: Accounting,[address] [place], [place], [address] [place] [address], [place] [facility] 08/17/2023 11:40:03 Tdap 8 completed MELISA ARMAS DO Attn: Accounting,[address] [place], [place], [address] [place] [address], [place] [facility] 08/17/2023 11:40:03 DTP 4 completed MELISA ARMAS DO Attn: Accounting,[address] [facility], [place], [address], [place] [facility] 08/17/2023 11:40:03 DTP 5 completed MELISA ARMAS DO Attn: Accounting,[address] [facility], [place], [address], [place] [facility] 08/17/2023 11:40:03 DTP 4 completed MELISA ARMAS DO Attn: Accounting,[address] [facility], [place], [address], [place] [facility] 08/17/2023 11:40:03 DTP 3 completed MELISA ARMAS DO Attn: Accounting,[address] [facility], [place], [address], [place] [facility] 08/17/2023 11:40:03 OPV, trivalent 4 completed MELISA ARMAS DO Attn: Accounting,[address] [facility], [place], [address], [place] [facility] 08/17/2023 11:40:03 OPV, trivalent 5 completed MELISA ARMAS DO Attn: Accounting,[address] [facility], [place], [address], [place] [facility] 08/17/2023 11:40:03 OPV, trivalent 3 completed MELISA ARMAS DO Attn: Accounting,[address] [facility], [place], [address], [place] [facility] 08/17/2023 11:40:03 OPV, trivalent 8 completed MELISA ARMAS DO Attn: Accounting,[address] [facility], [place], [address], [place] [facility] 08/17/2023 11:40:03 HPV, quadrivalent 8 completed MELISA ARMAS DO Attn: Accounting,[address] [facility], [place], [address], [place] [facility] 08/17/2023 11:40:03 Hep B, adolescent or pediatric 4 completed MELISA ARMAS DO Attn: Accounting,[address] [facility], [place], [address], [place] [facility] 08/17/2023 11:40:03 Hep B, adolescent or pediatric 4 completed MELISA ARMAS DO Attn: Accounting,[address] [facility], [place], [address], [place] [facility] 08/17/2023 11:40:03 Hep B, adolescent or pediatric 4 completed MELISA ARMAS DO Attn: Accounting,[address] [facility], [place], [address], [place] [facility] 08/17/2023 11:40:03 meningococcal C conjugate 8 completed MELISA ARMAS DO Attn: Accounting,[address] [facility], [place], [address], [place] [facility] 08/17/2023 11:40:03 DTaP 8 completed MELISA ARMAS DO Attn: Accounting,[address] [facility], [place], [address], [place] [facility] 08/17/2023 11:40:03 Past Encounters Encounter ID Performer Location Encounter Start Date Encounter Closed Date Diagnosis/Indication Diagnosis SNOMED-CT Code Diagnosis ICD10 Code Diagnosis IMO Codes Diagnosis Note [id number] MD Polo Castro 14 IM [address] [facility] [address] [place] [address] 08/09/2023 08:56:17 08/29/2023 13:48:16 Amenorrhea 43687499 N91.2 LMP 05/24/23HCG positive Routine an tenatal care [id number] Z34.12 August is a 28 y/o presenting [...] male. Screening for malignant neoplasm of cervix 530486574 Z12.4 - unknown last pap date or result [id number] MD Polo Castro 14 IM [address] [facility] [address] [place] [id number] 08/17/2023 10:36:43 08/25/2023 12:41:01 Routine care [id number] Z34.91 OB plan: 28 y/o ; FLORIAN 02/28/2024 based on LMP concordant with 1st trimester US Problem List:[place] Di twinsHx of preeclamps iaHx of laborpalpi [...] boy, otherwise normal Monochorio alia diamniotic twin 477523184 O30.009 Past pregn gal history of pre-eclampsia 8240005208 42764 Z87.59 Past pregn gal history of premature delivery 914069357 Z87.51 Palpitations 88845368 R0 0.2 Orthostati c VS normalLike ly related to normal physiologi c change in pregnancyD iscussed return and ED precaution sFollow up with MFM Health Concerns Section Related Observation LastModified by Organization Detai ls LastModified Time None Recorded Concern Status LastModified by Organization Details LastModified Time None Recorded Advance Directives Directive None Recorded Payers Insurance Date Sequence Insurance Name Policy Number Policy Delgado Covered Member ID Delgado Member ID Guarantor Name 06/28/2023 1 [facility] (MEDICAID HMO) August Sams [id number] August Sams 09/09/2023 1 [facility] PRIOR TO 04/12/2025 (MEDICAID REPLACEMENT - HMO) [id number] August Sams [id number] August Sams Notes Date Note Type Note Provider Name and Address Organization Details Recorded Time 08/09/2023 text/html ROS as noted in the HPI August is a 28 y/o presenting @ [...] all. Safia Almendarez MD Attn: Accounting,[address] [place], [address], [facility] 08/29/2023 10:27:43 08/17/2023 text/html Matthew is a 28y/o presenting @ 12.1 dated [...] bit Safia Almendarez MD Attn: Accounting[address] [place], [address], [place] [facility] 08/24/2023 12:36:17 OBGyn Episode Ob Episode Information Episode Created Date Number of Fetuses Patient Bloodtype Patient rh Status Prepregnancy Weight lbs Domestic Partner Domestic Partner Phone Father Name Equal Opportunity Assistant Status 06/28/20 23 1 O Positive CLOSED Fetus Data First Name Last Name Admitted to NICU Weight (g) Sex Living Outcome Pediatric Complications Fetus ID Race Codes Race Delivery Type [id number] Problems Problem Notes Plans to breast feed. 1 cat in home. Education done. No to epidural. If boy, yes to circ. PPBC BTL. Problem Name Start Date End Date Resolution Snomed Code Not e Palpitations 08/17/2023 [id number] Monochorionic diamniotic twi n 08/17/2023 [id number] Past history of pre-eclampsia 08/17/2023 [id number] Past history of premature delivery 08/17/2023 [id number] Florian Calculation Initial Florian Date Initial Exam [...] Weight in lbs Pre/Post Dialysis Refused Weight 124.629092788108 BP Diastolic BP Location Tested BP Systolic BP Type 86 120 sitting Fetus Heart Rate Present A 171 Present Fetus Movement Comments Matthew is a 28 y/o presenting @ [...] in lbs Pre/Post Dialysis Refused With clothes 126.822586710057 BP Diastolic BP Location Tested BP Systolic BP Type 69 110 sitting 79 117 sitting 82 114 sitting Fetus Heart Rate Present A Present Fetus Movement Comments Matthew is a 28y/o presenting @ 12.1 dated [...] FHR 160. Plan for full referral to MFM given multiple risk factors. Menstrual History Last Menstrual Date Menses Monthly On Bcp Conception Prior Menses Frequency Hcg Plus Date Menarche Onset Age 0905/24/2023 Genetic Screening And Infection History Question Response Note Patient's Age Will Be 35 Yea rs Or Older At Estimated Date of Delivery false Thalassemia (Turkish, Somali, Mediterranean, Or Background): MCV < 80 false Neural Tube Defect (Meningom yelocele, Spina Bifida, Or Anencephaly) false Congenital Heart Defect false Down Syndrome false Hilton-Sachs (eg, Protestant, Cajun , Kazakh-Conway) false Manju Disease false Sickle Cell Disease Or Trait () false Hemophilia Or Other Blood Disorders false Muscular Dystrophy false Cystic Fibrosis false Allendale's Chorea false Mental Retardation/Autism false If Yes, Was Person Tested For Fragile X? false Other Inherited Genetic Or C hromosomal Disorder false Maternal Metabolic Disorder (eg, Type 1 Diabetes, PKU) false Patient Or Baby's Father Had A Child With Defects Not Listed Above false Recurrent Loss, Or A Stillbirth true 2013 miscarriage twins at 15 weeks. Medications (including [...]
--- OUTSIDE RECORDS SUMMARY | 2025-07-13 17:19 | XMS_ITS | Clinical Summary ---
Author Organization [facility] Address [address] [place] [address] Care Team Providers Care Printing Engineer Name Role Phone No, Provider Primary Care [...] CDT Oxygen Saturation 100% 09/16/2023 4:47 PM DATA ARCHITECT MANAGER Inhaled Oxygen Concentration - - Weight 61.5 [...] patient's age to complete this topic Insurance [facility] Care Teams Printing Engineer Relationship Specialty Start Date End Date No, Provider PCP - General 07/16/22
--- OUTSIDE RECORDS SUMMARY | 2025-07-13 17:19 | XMS_ITS | Clinical Summary ---
Author Organization [facility] [employer] Address [address] [place] [address] Care Team Providers Care Septic Tank Servicer Name Role Phone Unavailable Primary Care Provider Unavailabl e Source Comments [facility] [employer],non-owned Affiliates and Associated Physician Practices is amultiple site organization consisting of ambulatory clinics and hospital sitesin [place], [place], [place] and [place]. This disclosure is being madepursuant to the Care Everywhere program and may not contain all information available regarding this patient. Last updated 18.[facility] [employer] Allergies Active Allergy Reactions Criticality Noted Date [...] swallowing tablets/capsules. Prefers chewable or liquid medications. [place] [employer] form completed. Diapers given. 02/16/2024 Problem Noted Date Diagnosed Date BED AND BREAKFAST INNKEEPER malformation, fetus 1 12/08/2023 abnormality affecting management [...] Diagnosed Date Resolved Date Depression screening-Initial at [facility] 11/07/2023 11/07/2023 02/10/2024 Overview (01/05/2024): 11/07/2023 Steven Sams was screened for depression using the [place] Depression Scale (EPDS) at her [facility] initial evaluation on 11/07/2023. Her initial score [...] 4 01/05/2024: Follow-up EPDS score = 6 [facility]: abnormality in 09/30/2023 02/10/2024 Overview (02/03/2024): Images from the original note were not included. [facility] PATIENT--PLEASE CALL [phone] (ex 2) IF TRIAGED OR ADMITTED Care Provider: [facility] consultants involved: Nurse Navigator-Yuri Pozo/Yakelin Puri; MFM-Dr. Celis/Dr. Lima; Pediatric Cardiology-Dr. Lorenzana; Neonatology-Dr. 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 Normal echocardiogram on 11/07/2023 Planned surveillance: Routine care; Amniocentesis done 11/22 at [facility]; released from [facility] on 01/04 Delivery [facility]: [facility] Delivery mode: Per usual OB indications Desired Delivery GA: IOL scheduled on 02/07/24 follow up per Neonatology: Discussed with parents, will need MRI and neurological consultation to evaluate extent of brain abnormality. Transfer to [facility] after depending how baby responded after . Genetics note: genetic diagnostic testing was performed by amniocentesis. Microarray was normal male. Whole exome sequencing was also performed and was not diagnostic. No further genetic testing is indicated at this time, nor are there plans for cord blood genetic testing. Please request Genetics consult postnatally if clinically indicated by calling the Genetics office at [phone] prior to ordering additional genetic studies. Tool Straightener Concerns: 11/07/2023-Patient with history of anxiety-no medications- [...] and heating? Not hard at all 02/07/2024 [facility] [place] [facility] Occupat ional Health - Occupational Stress [...] place to sleep or slept in a snf (including now)? No 02/07/2024 [place] Depression Scale Answer Date Recorded [place] Depression Scale Total 2 02/08/2024 The thought of harming myself has occurred to me . 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 Blood BLOOD SPECIMEN / Unknown Lab Venipuncture / Unknown 12/08/2023 12:26 PM CDT 12/08/2023 12:34 PM CDT Edison Moreno MD LAB - CHEMISTRY ORDERABLES Fi nal Result Performing Organization Address [facility]/State/[facility] Co de Phone Number [facility] [address] [place] [address], [facility] [phone] from Last 3 Months or Most Recently Relevant to Health Maintenance Insurance MEDICAID - [facility] Advance Directives * Full Code (Latest Code Status on File) Date Activated Date Inactivated Comments 02/07/2024 8:56 AM 02/08/2024 5:53 PM
--- NOTE | 2025-07-13 17:22 | ED.ANIMALBIT ---
HPI - Animal Bite General Chief Complaint: Animal Bite Stated Complaint: dog bite Time Seen by Provider: 07/13/25 17:21 Source: patient and family Mode of arrival: ambulatory Limitations: no limitations History of Present Illness HPI narrative: This is a 30-year-old female no significant past medical history that has a small avulsion to lateral aspect of her nose on the left side with currently no bleeding no other injuries after a dog that they adopted that known immunizations but dog has been acting. There is no fever chills no other injuries noted. complaint: animal bite Onset (ago): hour(s) Animal: dog Description of animal: household pet, immunizations unknown and appeared well Mechanism: bite Related Data Allergies Allergy/AdvReac Type Severity Reaction Status Date / Time pseudoephedrine (From Allergy Palpitation Verified 07/13/25 17:19 Sudafed) s Review of Systems Review of Systems: All systems reviewed & are unremarkable except as noted in HPI and below PMFSH Past Medical History Medical History Patient denies medical problems Exam Const: General: healthy appearing and no acute distress Nutritional Appearance: well nourished Orientation/consciousness: patient oriented x3 Resp: Effort & Inspection: normal respiratory effort Auscultation: clear to auscultation bilaterally Cardio: Rate: regular rate Rhythm: regular rhythm GI: GI Palp: Yes Soft to palpation Auscultation: normal bowel sounds Skin: Wounds: wounds noted Other: Small avulsion injury to the left nasal fold area Course Course Emergency Course: Med medical decision making narrative: The patient was evaluated by myself in the emergency department. History obtained from patient was an independent historian physical exam performed witnessed by nurse. Patient received triple antibiotic ointment to the affected area along with being updated with her tetanus and started on Augmentin antibiotic. Repeat assessment: The patient is doing well with no acute distress Symptoms are stable since arrival to the ED Repeat vital stable Patient agrees with discussion and after shared medical decision making and agrees with discharge All questions answered to the patient's satisfaction. Follow-up with primary within the next 3 to 5 days. The Critical Care Time Critical Care Time Critical Care Time: No Discharge Plan Discharge Clinical Impression: Bite by animal, Dog bite Patient Disposition: Home Condition: Stable Instructions: Antibiotic Form, Animal Bite (ED) Patient Language: Icelandic Prescriptions: New amoxicillin-pot clavulanate [Augmentin] 500-125 mg tablet 1 tablet PO TID Qty: 30 0RF Follow-up/Referrals: Sergo Celeste MD [Primary Care Provider, Internal Medicine] Time of Disposition: 17:27
[2025-07-13] MEDS: TETANUS,DIPHTHERIA,AC PERTUSSIS ADULT 0.5 ML (ADACEL) IM (17:29)
[2025-07-13] MEDS: NEOMYCIN/POLYMYXIN/BACITRACIN OINTMENT PACKET 1 PACKET TOPICAL (17:29)
== END 2025-07-13 17:40 | disposition home or self-care (01) ==
LOC: CHSED 17:31
PROVIDERS: Emergency Provider Emergency Medicine; PCP Family Medicine
DX: S01.25XA Open bite of nose, initial encounter (principal); W54.0XXA Bitten by dog, initial encounter; Z23 Encounter for immunization
CPT/HCPCS: 90471; 90715; 99283; A9270